=== PATIENT | female | born 1970 | race Caucasian/White ===

== ENCOUNTER 2016-11-15 15:02 | Observation (INO) ==
[2016-11-15] MEDS ORDERED: WATER IV ONE (15:36)
[2016-11-15] MEDS ORDERED: FOMEPIZOLE IV ONE (15:36)
[2016-11-15] MEDS ORDERED: D5 IV ONE (15:36)
--- NOTE | 2016-11-15 15:36 | Emergency Department Note ---
Disposition Clinical Impression: Anti-freeze poisoning, Accidental ingestion of toxic substance Disposition: Admitted As Inpatient Condition: Fair General Adult HPI - General Chief complaint: ED General Medical Stated complaint: Accidental ingestion of antifreeze last night Time Seen by Provider: 11/15/16 15:25 Source: patient Limitations: no limitations - History of Present Illness Pain Scale: 9 - Related Data Home Medications Medication Instructions Recorded Confirmed Gabapentin [Neurontin] 600 mg PO TID 01/04/15 11/15/16 Insulin Glargine,Hum.rec.anlog 50 units SQ QPM #0 04/29/15 11/15/16 [Toujeo Solostar] Omeprazole [PriLOSEC] 40 mg PO DAILY 11/03/15 11/15/16 Cholecalciferol (D-3) [Vitamin D] 1,000 unit PO DAILY 04/19/16 11/15/16 Pnv95/Ferrous Fumarate/FA 1 each PO DAILY 11/15/16 11/15/16 [ Vitamin Tablet] Previous Rx's Medication Instructions Recorded Dicyclomine [Bentyl] 10 mg PO QID PRN #20 capsule 10/23/16 Allergies Allergy/AdvReac Type Severity Reaction Status Date / Time ibuprofen [From Motrin] AdvReac Gastrointestinal Verified 11/15/16 15:17 Upset NSAIDS (Non-Steroidal AdvReac Gastrointestinal Verified 11/15/16 15:17 Anti-Inflamma Upset Past Medical History - Past Medical History Medical history: Reports: arthritis, cancer, diabetes, pulmonary embolus, other Surgical history: Reports: cholecystectomy, herniorrhaphy, hysterectomy, other Psychiatric history: Reports: no psych history 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, 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 - Social History Smoking Status: Never smoker Smokeless Tobacco Status: No Alcohol use: Reports: none Drug use: Reports: none Physical Exam - General Limitations: no limitations General appearance: alert, in no apparent distress Course Vital Signs Temperature 98.5 F 11/15/16 15:13 Pulse Rate 97 11/15/16 15:13 Respiratory Rate 20 11/15/16 15:13 Blood Pressure 136/100 11/15/16 15:13 O2 Sat by Pulse Oximetry 99 11/15/16 15:13 Temperature 97.7 F 11/16/16 11:06 Pulse Rate 88 11/16/16 11:06 Respiratory Rate 17 11/16/16 11:06 Blood Pressure 109/71 11/16/16 11:06 O2 Sat by Pulse Oximetry 95 11/16/16 11:06 Oxygen Delivery Oxygen Delivery Room Air Medical Decision Making - Lab Data Result diagrams: 11/16/16 03:15 11/16/16 03:15 Lab Results 11/15/16 11/15/16 11/15/16 Range/Units 15:41 15:52 16:08 WBC 7.7 (4.3-11.1) K/mcL RBC 4.79 (3.82-4.97) M/mcL Hgb 13.3 (11.5-15.4) g/dL Hct 41.2 (35.3-44.9) % MCV 86.0 (83.0-100.0) fL MCH 27.8 L (28.0-33.3) pg MCHC 32.3 (31.6-35.5) g/dL RDW 14.5 (11.5-14.5) % Plt Count 417 H (140-400) K/mcL MPV 9.0 L (9.4-12.4) fL Immature Gran % 0.4 (0-4) % Seg Neutrophils % 70.5 % Lymphocytes % 17.7 % Monocytes % 8.9 % Eosinophils % 2.0 % Basophils % 0.5 % Neutrophils # 5.4 (1.6-8.9) K/mcL Lymphocytes # 1.4 (0.6-4.6) K/mcL Monocytes # 0.7 (0.0-1.3) K/mcL Eosinophils # 0.2 (0.0-0.6) K/mcL Basophils # 0.0 (0.0-0.2) K/mcL VBG pH (7.32-7.42) pH Units VBG pCO2 (41-51) mmHg VBG pO2 (25-50) mmHg VBG HCO3 (21-27) mEq/L Sodium (136-145) mEq/L Potassium (3.5-4.5) mEq/L Chloride (98-109) mEq/L Carbon Dioxide (19-29) mEq/L BUN (7-20) mg/dL Creatinine (0.57-1.11) mg/dL Est GFR ( Amer) (> 60) Est GFR (Non-Af Amer) (> 60) BUN/Creatinine Ratio (6-26) Glucose (70-99) mg/dL POC Glucose 179 H (58-89) Est Mean Plasma Glucose mg/dl Hemoglobin A1c ( - 5.6) % Calculated Osmolality (280-300) Calcium (8.6-10.8) mg/dL Total Bilirubin (0.2-1.2) mg/dL AST (5-34) Units/L ALT (0-55) Units/L Alkaline Phosphatase (38-126) Units/L Serum Total Protein (6.0-8.3) g/dL Albumin (3.5-5.0) g/dL Globulin (2.4-3.5) g/dL Albumin/Globulin Ratio (1.1-2.2) Urine Color Dark Yellow (Yellow) Urine Clarity Clear (Clear) Urine pH 6.5 (5.0-8.0) pH Units Ur Specific [place] 1.027 H (1.010-1.025) Urine Protein 100 H (Neg-Trace) mg/dL Urine Glucose (UA) Normal (Normal) mg/dL Urine Ketones Negative (Negative) mg/dL Urine Blood Negative (Negative) Urine Nitrite Negative (Negative) Urine Bilirubin Negative (Negative) Urine Urobilinogen Normal (Normal) mg/dL Ur Leukocyte Esterase Small H (Negative) Urine Microscopic RBC 0-3 (0-3) per hpf Urine Microscopic WBC 5-15 H (0-3) per hpf Ur Squamous Epith Cells Many H (None-Few) per lpf Ur Renal Epithelial Cell Few (None-Few) per hpf Urine Bacteria None Seen (None-Few) per hpf Hyaline Casts Moderate H (None-Few) per lpf Salicylates (15-30) mg/dL Acetaminophen (10-30) mcg/mL Ethyl Alcohol (0-10) mg/dL 11/15/16 11/15/16 11/15/16 Range/Units 16:08 16:08 16:19 WBC (4.3-11.1) K/mcL RBC (3.82-4.97) M/mcL Hgb (11.5-15.4) g/dL Hct (35.3-44.9) % MCV (83.0-100.0) fL MCH (28.0-33.3) pg MCHC (31.6-35.5) g/dL RDW (11.5-14.5) % Plt Count (140-400) K/mcL MPV (9.4-12.4) fL Immature Gran % (0-4) % Seg Neutrophils % % Lymphocytes % % Monocytes % % Eosinophils % % Basophils % % Neutrophils # (1.6-8.9) K/mcL Lymphocytes # (0.6-4.6) K/mcL Monocytes # (0.0-1.3) K/mcL Eosinophils # (0.0-0.6) K/mcL Basophils # (0.0-0.2) K/mcL VBG pH 7.34 (7.32-7.42) pH Units VBG pCO2 58 H (41-51) mmHg VBG pO2 36 (25-50) mmHg VBG HCO3 31 H (21-27) mEq/L Sodium 142 (136-145) mEq/L Potassium 4.2 (3.5-4.5) mEq/L Chloride 103 (98-109) mEq/L Carbon Dioxide 30 H (19-29) mEq/L BUN 9 (7-20) mg/dL Creatinine 0.76 (0.57-1.11) mg/dL Est GFR ( Amer) > 60 (> 60) Est GFR (Non-Af Amer) > 60 (> 60) BUN/Creatinine Ratio 12 (6-26) Glucose 198 H (70-99) mg/dL POC Glucose (58-89) Est Mean Plasma Glucose 166 mg/dl Hemoglobin A1c 7.4 H ( - 5.6) % Calculated Osmolality 298 (280-300) Calcium 9.7 (8.6-10.8) mg/dL Total Bilirubin 0.4 (0.2-1.2) mg/dL AST 14 (5-34) Units/L ALT 26 (0-55) Units/L Alkaline Phosphatase 132 H (38-126) Units/L Serum Total Protein 7.7 (6.0-8.3) g/dL Albumin 3.7 (3.5-5.0) g/dL Globulin 4.0 H (2.4-3.5) g/dL Albumin/Globulin Ratio 0.9 L (1.1-2.2) Urine Color (Yellow) Urine Clarity (Clear) Urine pH (5.0-8.0) pH Units Ur Specific [place] (1.010-1.025) Urine Protein (Neg-Trace) mg/dL Urine Glucose (UA) (Normal) mg/dL Urine Ketones (Negative) mg/dL Urine Blood (Negative) Urine Nitrite (Negative) Urine Bilirubin (Negative) Urine Urobilinogen (Normal) mg/dL Ur Leukocyte Esterase (Negative) Urine Microscopic RBC (0-3) per hpf Urine Microscopic WBC (0-3) per hpf Ur Squamous Epith Cells (None-Few) per lpf Ur Renal Epithelial Cell (None-Few) per hpf Urine Bacteria (None-Few) per hpf Hyaline Casts (None-Few) per lpf Salicylates < 5.0 L (15-30) mg/dL Acetaminophen < 1.0 L (10-30) mcg/mL Ethyl Alcohol < 10 (0-10) mg/dL Critical Care Time Critical Care Time: Yes Total Critical Care Time: 30 Attestation: Toxic alcohol ingestion requiring IV fomepizole and poison control consult Attestation Statement - Attestation Attestation: I examined this patient and my medical decision-making was reviewed with the Resident Physician. I agree with the documented findings, disposition and treatment plan as described except to the extent set forth below. Face to face time provided in conjunction with the resident physician Dr. Hoffman Patient ambulatory to treatment room. Seen upon arrival to room. Possible accidental antifreeze ingestion. Appears in NAD. Case d/w PCC by me at 15:35. They rec IV fomepizole
--- NOTE | 2016-11-15 15:58 | Emergency Department Note ---
Disposition Clinical Impression: Anti-freeze poisoning Qualifiers: Encounter type: initial encounter Injury intent: accidental or unintentional Qualified Code(s): T65.91XA - Toxic effect of unspecified substance, accidental (unintentional), initial encounter Accidental ingestion of toxic substance Qualifiers: Encounter type: initial encounter Qualified Code(s): T65.91XA - Toxic effect of unspecified substance, accidental (unintentional), initial encounter Disposition: Admitted As Inpatient Condition: Fair Time of Disposition: 19:00 General Adult HPI - General Chief complaint: ED General Medical Stated complaint: Accidental ingestion of antifreeze last night Time Seen by Provider: 11/15/16 15:25 Source: patient Limitations: no limitations Nursing Notes Reviewed: Yes Vital Signs Reviewed: Yes - History of Present Illness HPI Narrative: Patient 46-year-old female who complains of back pain and dysuria and throat pain secondary to accidental ingestion of antifreeze 8 hours ago. Patient states they were hanging outside in the dark and her son put antifreeze in a Coke bottle. Patient states she mistook it for her bottle and took a mouthful. Patient swallowed. Patient states she threw up almost immediately and states it burned her throat on the way up. Patient states that 8 hours later she started having back pain around her kidneys and burning with urination. Patient has a history of diabetes as well. Pain Scale: 9 - Related Data Home Medications Medication Instructions Recorded Confirmed Gabapentin [Neurontin] 600 mg PO TID 01/04/15 11/15/16 Insulin Glargine,Hum.rec.anlog 50 units SQ QPM #0 04/29/15 11/15/16 [Hugh Carrillo] Omeprazole [PriLOSEC] 40 mg PO DAILY 11/03/15 11/15/16 Cholecalciferol (D-3) [Vitamin D] 1,000 unit PO DAILY 04/19/16 11/15/16 Pnv95/Ferrous Fumarate/FA 1 each PO DAILY 11/15/16 11/15/16 [ Vitamin Tablet] Previous Rx's Medication Instructions Recorded Dicyclomine [Bentyl] 10 mg PO QID PRN #20 capsule 10/23/16 Allergies Allergy/AdvReac Type Severity Reaction Status Date / Time ibuprofen [From Motrin] AdvReac Gastrointestinal Verified 11/15/16 15:17 Upset NSAIDS (Non-Steroidal AdvReac Gastrointestinal Verified 11/15/16 15:17 Anti-Inflamma Upset All systems ED: reviewed and negative except as stated. Review of Systems: As Per HPI Constitutional: Denies: fever, chills, weakness Eyes: Denies: vision change Cardiovascular: Denies: chest pain, palpitations, dyspnea on exertion Respiratory: Denies: cough Gastrointestinal: Reports: abdominal pain. Denies: nausea, vomiting, diarrhea Genitourinary: Reports: urgency, dysuria, frequency Musculoskeletal: Reports: back pain Integumentary: Denies: rash Neurological: Denies: headache Endocrine: Denies: fatigue Past Medical History - Past Medical History Attestation: Yes The following information was validated with the patient. 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 It patient is comfortable and non-diaphoretic and nontoxic appearing - General Limitations: no limitations General appearance: alert, in no apparent distress - Head Head exam: atraumatic, normocephalic, normal inspection - Eye Eye exam: Present: normal appearance, PERRL, EOMI - ENT ENT exam: normal exam, normal oropharynx, mucous membranes moist - Neck Neck exam: Present: normal inspection, full ROM, trachea midline - Chest Chest inspection: Present: normal inspection, symmetric chest wall rise - Respiratory Respiratory exam: Present: normal lung sounds bilaterally - Abdominal Exam Abdominal exam: Present: soft, tenderness, other (Left flank tenderness to palpation). Absent: distention, guarding, rebound, rigidity Abdominal tenderness: Present: suprapubic, moderate - Back Exam Back exam: Present: CVA tenderness (R), CVA tenderness (L) - Neurological Exam Neurological exam: Present: alert, oriented X3 - Psychiatric Psychiatric exam: Present: normal affect, normal mood - Skin Skin exam: Present: warm, dry, intact, normal color Course - Consultations Consultation #1: Dr. Mayfield hospitalist has accepted patient for admission Time: 16:50 Consultation #2: poison control returned call. took lab values. Dr. Canales is operations representative. Time: 17:52 Vital Signs Temperature 98.5 F 11/15/16 15:13 Pulse Rate 97 11/15/16 15:13 Respiratory Rate 20 11/15/16 15:13 Blood Pressure 136/100 11/15/16 15:13 O2 Sat by Pulse Oximetry 99 11/15/16 15:13 Temperature 98.1 F 11/15/16 18:35 Pulse Rate 80 11/15/16 18:35 Respiratory Rate 15 11/15/16 18:35 Blood Pressure 115/83 11/15/16 18:35 O2 Sat by Pulse Oximetry 99 11/15/16 18:35 Oxygen Delivery Oxygen Delivery Room Air Medical Decision Making - MDM Narrative Medical decision making narrative: Accidental toxic ingestion of antifreeze. Labs ordered after discussion with poison control to suspect for toxic operations representative ingestion. Other labs of CBC and BMP ordered as well. Patient's lab values showed no elevations outside of her normal baselines. Patient's pain was treated with fentanyl. Patient doing better. Patient is admitted for treatment with Fomepizole as advised by poison control. Patient received her first dose here of 800 mg. Patient accepts this decision for admission. Patient is accepted for admission by Dr. Mayfield the hospitalist. - Lab Data Lab results narrative: Short CBC 11/15/16 Range/Units 16:08 WBC 7.7 (4.3-11.1) K/mcL Hgb 13.3 (11.5-15.4) g/dL Hct 41.2 (35.3-44.9) % Plt Count 417 H (140-400) K/mcL Neutrophils # 5.4 (1.6-8.9) K/mcL BMP 11/15/16 Range/Units 16:08 Sodium 142 (136-145) mEq/L Potassium 4.2 (3.5-4.5) mEq/L Chloride 103 (98-109) mEq/L Carbon Dioxide 30 H (19-29) mEq/L BUN 9 (7-20) mg/dL Creatinine 0.76 (0.57-1.11) mg/dL Glucose 198 H (70-99) mg/dL Calcium 9.7 (8.6-10.8) mg/dL Liver Function 11/15/16 Range/Units 16:08 Total Bilirubin 0.4 (0.2-1.2) mg/dL AST 14 (5-34) Units/L ALT 26 (0-55) Units/L Alkaline Phosphatase 132 H (38-126) Units/L Albumin 3.7 (3.5-5.0) g/dL Urine 11/15/16 Range/Units 15:41 Urine Color Dark Yellow (Yellow) Urine Clarity Clear (Clear) Urine pH 6.5 (5.0-8.0) pH Units Ur Specific [place] 1.027 H (1.010-1.025) Urine Protein 100 H (Neg-Trace) mg/dL Urine Glucose (UA) Normal (Normal) mg/dL Result diagrams: 11/15/16 16:08 11/15/16 16:08 Lab Results 11/15/16 11/15/16 11/15/16 Range/Units 15:41 16:08 16:08 WBC 7.7 (4.3-11.1) K/mcL RBC 4.79 (3.82-4.97) M/mcL Hgb 13.3 (11.5-15.4) g/dL Hct 41.2 (35.3-44.9) % MCV 86.0 (83.0-100.0) fL MCH 27.8 L (28.0-33.3) pg MCHC 32.3 (31.6-35.5) g/dL RDW 14.5 (11.5-14.5) % Plt Count 417 H (140-400) K/mcL MPV 9.0 L (9.4-12.4) fL Immature Gran % 0.4 (0-4) % Seg Neutrophils % 70.5 % Lymphocytes % 17.7 % Monocytes % 8.9 % Eosinophils % 2.0 % Basophils % 0.5 % Neutrophils # 5.4 (1.6-8.9) K/mcL Lymphocytes # 1.4 (0.6-4.6) K/mcL Monocytes # 0.7 (0.0-1.3) K/mcL Eosinophils # 0.2 (0.0-0.6) K/mcL Basophils # 0.0 (0.0-0.2) K/mcL VBG pH (7.32-7.42) pH Units VBG pCO2 (41-51) mmHg VBG pO2 (25-50) mmHg VBG HCO3 (21-27) mEq/L Sodium 142 (136-145) mEq/L Potassium 4.2 (3.5-4.5) mEq/L Chloride 103 (98-109) mEq/L Carbon Dioxide 30 H (19-29) mEq/L BUN 9 (7-20) mg/dL Creatinine 0.76 (0.57-1.11) mg/dL Est GFR ( Amer) > 60 (> 60) Est GFR (Non-Af Amer) > 60 (> 60) BUN/Creatinine Ratio 12 (6-26) Glucose 198 H (70-99) mg/dL Est Mean Plasma Glucose mg/dl Hemoglobin A1c ( - 5.6) % Calculated Osmolality 298 (280-300) Calcium 9.7 (8.6-10.8) mg/dL Total Bilirubin 0.4 (0.2-1.2) mg/dL AST 14 (5-34) Units/L ALT 26 (0-55) Units/L Alkaline Phosphatase 132 H (38-126) Units/L Serum Total Protein 7.7 (6.0-8.3) g/dL Albumin 3.7 (3.5-5.0) g/dL Globulin 4.0 H (2.4-3.5) g/dL Albumin/Globulin Ratio 0.9 L (1.1-2.2) Urine Color Dark Yellow (Yellow) Urine Clarity Clear (Clear) Urine pH 6.5 (5.0-8.0) pH Units Ur Specific [place] 1.027 H (1.010-1.025) Urine Protein 100 H (Neg-Trace) mg/dL Urine Glucose (UA) Normal (Normal) mg/dL Urine Ketones Negative (Negative) mg/dL Urine Blood Negative (Negative) Urine Nitrite Negative (Negative) Urine Bilirubin Negative (Negative) Urine Urobilinogen Normal (Normal) mg/dL Ur Leukocyte Esterase Small H (Negative) Urine Microscopic RBC 0-3 (0-3) per hpf Urine Microscopic WBC 5-15 H (0-3) per hpf Ur Squamous Epith Cells Many H (None-Few) per lpf Ur Renal Epithelial Cell Few (None-Few) per hpf Urine Bacteria None Seen (None-Few) per hpf Hyaline Casts Moderate H (None-Few) per lpf Salicylates < 5.0 L (15-30) mg/dL Acetaminophen < 1.0 L (10-30) mcg/mL Ethyl Alcohol < 10 (0-10) mg/dL 11/15/16 11/15/16 Range/Units 16:08 16:19 WBC (4.3-11.1) K/mcL RBC (3.82-4.97) M/mcL Hgb (11.5-15.4) g/dL Hct (35.3-44.9) % MCV (83.0-100.0) fL MCH (28.0-33.3) pg MCHC (31.6-35.5) g/dL RDW (11.5-14.5) % Plt Count (140-400) K/mcL MPV (9.4-12.4) fL Immature Gran % (0-4) % Seg Neutrophils % % Lymphocytes % % Monocytes % % Eosinophils % % Basophils % % Neutrophils # (1.6-8.9) K/mcL Lymphocytes # (0.6-4.6) K/mcL Monocytes # (0.0-1.3) K/mcL Eosinophils # (0.0-0.6) K/mcL Basophils # (0.0-0.2) K/mcL VBG pH 7.34 (7.32-7.42) pH Units VBG pCO2 58 H (41-51) mmHg VBG pO2 36 (25-50) mmHg VBG HCO3 31 H (21-27) mEq/L Sodium (136-145) mEq/L Potassium (3.5-4.5) mEq/L Chloride (98-109) mEq/L Carbon Dioxide (19-29) mEq/L BUN (7-20) mg/dL Creatinine (0.57-1.11) mg/dL Est GFR ( Amer) (> 60) Est GFR (Non-Af Amer) (> 60) BUN/Creatinine Ratio (6-26) Glucose (70-99) mg/dL Est Mean Plasma Glucose 166 mg/dl Hemoglobin A1c 7.4 H ( - 5.6) % Calculated Osmolality (280-300) Calcium (8.6-10.8) mg/dL Total Bilirubin (0.2-1.2) mg/dL AST (5-34) Units/L ALT (0-55) Units/L Alkaline Phosphatase (38-126) Units/L Serum Total Protein (6.0-8.3) g/dL Albumin (3.5-5.0) g/dL Globulin (2.4-3.5) g/dL Albumin/Globulin Ratio (1.1-2.2) Urine Color (Yellow) Urine Clarity (Clear) Urine pH (5.0-8.0) pH Units Ur Specific [place] (1.010-1.025) Urine Protein (Neg-Trace) mg/dL Urine Glucose (UA) (Normal) mg/dL Urine Ketones (Negative) mg/dL Urine Blood (Negative) Urine Nitrite (Negative) Urine Bilirubin (Negative) Urine Urobilinogen (Normal) mg/dL Ur Leukocyte Esterase (Negative) Urine Microscopic RBC (0-3) per hpf Urine Microscopic WBC (0-3) per hpf Ur Squamous Epith Cells (None-Few) per lpf Ur Renal Epithelial Cell (None-Few) per hpf Urine Bacteria (None-Few) per hpf Hyaline Casts (None-Few) per lpf Salicylates (15-30) mg/dL Acetaminophen (10-30) mcg/mL Ethyl Alcohol (0-10) mg/dL
[2016-11-15 16:01] LABS: Bilirubin,Urine Negative (Negative); Blood,Urine Negative (Negative); Clarity,Urine Clear (Clear); Color,Urine Dark Yellow (Yellow); Glucose,Urine (UA) Normal (Normal); Ketones,Urine Negative (Negative); Leukocyte Esterase,Urine Small (Negative); Nitrite,Urine Negative (Negative); PH,Urine 6.5 pH Units (5.0-8.0); Protein,Urine 100 mg/dL (Neg-Trace); Specific Gravity,Urine 1.027 (1.010-1.025); Urobilinogen,Urine Normal (Normal)
[2016-11-15 16:03] LABS: Bacteria,Urine None Seen per hpf (None-Few); Hyaline Casts,Urine Moderate per lpf (None-Few); Squamous Epithelial Cell,Urine Many per lpf (None-Few)
[2016-11-15 16:15] LABS: Renal Epithelial Cells,Urine Few per hpf (None-Few)
[2016-11-15 16:16] LABS: Basophils % 0.5 %; Eosinophils # 0.2 K/mcL (0.0-0.6); Hematocrit 41.2 % (35.3-44.9); Hemoglobin 13.3 g/dL (11.5-15.4); Immature Granulocytes % 0.4 % (0-4); Lymphocytes # 1.4 K/mcL (0.6-4.6); Lymphocytes % 17.7 %; Mean Corpuscular HGB Conc 32.3 g/dL (31.6-35.5); Mean Corpuscular Hemoglobin 27.8 pg (28.0-33.3); Monocytes # 0.7 K/mcL (0.0-1.3); Monocytes % 8.9 %; Neutrophils # 5.4 K/mcL (1.6-8.9); Platelet Count 417 K/mcL (140-400); Red Blood Count 4.79 M/mcL (3.82-4.97); Red Cell Distribution Width 14.5 % (11.5-14.5); Segmented Neutrophils % 70.5 %
[2016-11-15 16:16] LABS: RBC,Urine 0-3 per hpf (0-3)
[2016-11-15 16:22] LABS: VBG HCO3 31 mEq/L (21-27); VBG PCO2 58 mmHg (41-51); VBG PH 7.34 pH Units (7.32-7.42); VBG PO2 36 mmHg (25-50)
[2016-11-15 16:29] LABS: Alanine Aminotransferase 26 Units/L (0-55); Albumin 3.7 g/dL (3.5-5.0); Albumin/Globulin Ratio 0.9 (1.1-2.2); Alkaline Phosphatase 132 Units/L (38-126); Aspartate Amino Transferase 14 Units/L (5-34); BUN/Creatinine Ratio 12 (6-26); Bilirubin,Total 0.4 mg/dL (0.2-1.2); Blood Urea Nitrogen 9 mg/dL (7-20); Calcium 9.7 mg/dL (8.6-10.8); Carbon Dioxide 30 mEq/L (19-29); Chloride 103 mEq/L (98-109); Glucose 198 mg/dL (70-99); Osmolality,Calculated 298 (280-300); Potassium 4.2 mEq/L (3.5-4.5); Sodium 142 mEq/L (136-145); Total Protein 7.7 g/dL (6.0-8.3); eGFR For African Americans > 60 (> 60); eGFR For Non-African Americans > 60 (> 60)
[2016-11-15 16:30] LABS: Acetaminophen < 1.0 mcg/mL (10-30); Ethanol < 10 mg/dL (0-10); Salicylate < 5.0 mg/dL (15-30)
[2016-11-15] MEDS ORDERED: *HR* FentaNYL (PF) 100 MCG/2 ML VIAL IVP ONE (17:26)
[2016-11-15] MEDS ORDERED: Dextrose Gel 15 GM PO PRN ×2 (17:33)
[2016-11-15] MEDS ORDERED: *HR* Dextrose 50 % in Water (Syg) 50 ML SYRINGE IVP PRN (17:33)
[2016-11-15] MEDS ORDERED: D5% in Water 1,000 ML IVC PRN (17:33)
[2016-11-15] MEDS ORDERED: Ondansetron 4 MG/2 ML VIAL IVP PRN (17:36)
[2016-11-15] MEDS ORDERED: Naloxone 0.4 MG/ML INJ IVP PRN (17:36)
--- NOTE | 2016-11-15 17:36 | Event Note ---
Date of Encounter: 11/15/16 Time of Encounter: 17:33 Patient seen and examined with nurse practitioner. Antifreeze overdose. History is suspicious of intentional overdose. Get sitter at bedside and psychiatry evaluation. Poison control has been contacted recommended fomepizole. Follow kidney functions and urine output
--- NOTE | 2016-11-15 17:51 | Internal Med History&Physical ---
Date of Encounter: 11/15/16 Time of Encounter: 17:45 Assessment and Plan (1) Antifreeze poisoning Current visit: Yes Status: Acute Patient reports drinking out of the wrong can of coke and accidentally swallowing antifreeze at 1am this morning. She reports vomiting started 1 hour later. She denies intentional self harm, but her story is suspicious. Poison control was called and recommended following kidney function and Fomepizole antidote. loading dose of Fomepizole given in ED, continue with 10mg/kg IVPB q12 hours. Ethelene glycol level pending. IV fluids 0.9NS at 125mL/hr I/Os Check chemistry q6hr Consider consult to nephrology if kidney function deteriorates or she develops anion gap acidosis clear liquid diet zofran for nausea Sitter at bedside consult to psych Qualifiers: Encounter type: initial encounter Injury intent: accidental or unintentional Qualified Code(s): T65.91XA - Toxic effect of unspecified substance, accidental (unintentional), initial encounter (2) Type 2 diabetes mellitus Current visit: Yes Status: Acute Check Hgb A1c Patient on clear liquid diet check blood sugars ACHS Hold long acting insulin sliding scale correction dose ACHS hypoglycemic protocol. Qualifiers: Diabetes mellitus complication status: without complication Diabetes mellitus long term acute care registered nurse insulin use: with halfway use Qualified Code(s): E11.9 - Type 2 diabetes mellitus without complications; Z79.4 - correction (current) use of insulin; Z79.4 - correction (current) use of insulin; Z79.4 - long term acute care registered nurse ( current) use of insulin; Z79.4 - long term acute care registered nurse (current) use of insulin (3) DVT prophylaxis Current visit: Yes Status: Acute anti-embolic stockings heparin SQ TID Internal Medicine - H&P: HPI Chief complaint: antifreeze overdose Admitted From: Emergency Dept Plans for Post Hospital Care: Home History of present illness: Ms. Lawson is a 46 year old female with type 2 diabetes, hyperlipidemia, arthritis who presented to the ED today complaining of dysuria, abdominal pain and low back pain after accidentally ingesting antifreeze at approximately 1am this morning. Patient reports she was hanging out in the driveway and took a drink of what she thought was her coke, but it actually contained antifreeze. She reports she vomiting approximately 1 hour later and had vomiting all night. Today she developed dysuria and bilateral flank pain. Patient denies any intent to self-harm but story is suspicious. Labs drawn in ED were normal. UA shows hyaline casts in urine. Poison control was called and recommended watching kidney function closely and administering Fomepizole. She received loading dose of Fomepizole in ED. On exam, patient alert and oriented, in no distress. Lungs clear bilaterally, heart has regular rate and rhythm. Abdomen soft, diffusely mildly tender, with positive bowel sounds. Bilateral CVA tenderness. Past Med Surg Social Fam HX - Past Medical History Medical history: arthritis, cancer, diabetes, pulmonary embolus, other Psychiatric history: no psych history - Past Surgical History Surgical History: cholecystectomy, herniorrhaphy, hysterectomy, other - Social History Smoking Status: Never smoker Smokeless Tobacco Status: No Alcohol use: none Drug use: none - Family History Mother Living Status: Still Living Hx Family Cardiac Disorders: Yes (CHF) Hx Family Respiratory Disorders: No Hx Family Cancer: No Hx Family GI Disorders: No Hx Family Endocrine Disorder: Yes (THYROID DX) Hx Family Neuromuscular Disorders: No Hx Family Neurologic Disorders: No Hx Family HEENT Disorders: No Hx Family Autoimmune Disorders: No Internal Medicine - H&P: Meds Gabapentin [Neurontin] 600 mg PO TID 01/04/15 [History] Insulin Glargine,Hum.rec.anlog [Toujeo Solostar] 50 units SQ QPM #0 04/29/15 [ History] Omeprazole [PriLOSEC] 40 mg PO DAILY 11/03/15 [History] Cholecalciferol (D-3) [Vitamin D] 1,000 unit PO DAILY 04/19/16 [History] Dicyclomine [Bentyl] 10 mg PO QID PRN #20 capsule 10/23/16 [Rx] Pnv95/Ferrous Fumarate/FA [ Vitamin Tablet] 1 each PO DAILY 11/15/16 [ History] 3 Allergy/AdvReac Type Severity Reaction Status Date / Time ibuprofen [From Motrin] AdvReac Gastrointestinal Verified 11/15/16 15:17 Upset NSAIDS (Non-Steroidal AdvReac Gastrointestinal Verified 11/15/16 15:17 Anti-Inflamma Upset All Systems PM: A 10-system review of systems was performed and is negative for pertinent findings except as documented above in the HPI. - Constitutional Constitutional: no chills, no fever(s), no night sweats - EENT Eyes: no change in vision, no discharge, no pain, no photophobia Ears: no ear discharge, no ear pain, no tinnitus Nose, mouth and throat: no dysphagia, no nasal discharge, no neck pain, no sore throat - Cardiovascular Cardiovascular ROS IM: no chest pain, no diaphoresis, no dyspnea, no lightheadedness, no palpitations, no syncope - Respiratory Respiratory: no cough, no dyspnea, no wheezing, no excessive phlegm production - Gastrointestinal Gastrointestinal: abdominal pain, nausea, vomiting, no diarrhea, no hematemesis , no hematochezia, no melena - Genitourinary Genitourinary: dysuria, flank pain, no change in urinary stream, no hematuria - Musculoskeletal Musculoskeletal ROS IM: no numbness, no tingling - Integumentary Integumentary IM: no rash, no unusual bruising - Neurological Neurological ROS: no confusion, no convulsions, no focal weakness, no numbness, no tingling, no tremor(s) - Hematologic/Lymphatic Hematologic/Lymphatic: no easy bruising - Constitutional Vitals: Temp Pulse Resp BP Pulse Ox 98.5 F 86 20 101/75 98 11/15/16 15:13 11/15/16 17:23 11/15/16 17:23 11/15/16 17:23 11/15/16 17:23 General appearance: Present: A&O X 3, morbidly obese, pleasant, no acute distress - Head Head exam: Present: atraumatic, normocephalic - Eye Eye exam: Present: PERRL, conjuntiva pink, sclera anicteric Pupils: Present: PERRL - Neck Neck exam general surgery: Present: supple, trachea midline. Absent: lymphadenopathy - Respiratory Respiratory exam: Present: CTAB. Absent: accessory muscle use, rales, rhonchi, wheezes - Cardiovascular Cardiovascular exam: Present: RRR, +S1, +S2. Absent: diastolic murmur, gallop, rubs, systolic murmur - GI/Abdominal GI/Abdominal exam: Present: normal bowel sounds, soft, tenderness (diffusely mildly), no peritoneal signs. Absent: distended - Extremities Exam Extremities exam: Present: warm, radial pulses palpable and symmetrical. Absent : calf tenderness, cyanotic, pedal edema - Back Exam Back exam: Present: CVA tenderness (L), CVA tenderness (R) - Neurological Exam Neurological exam: Present: CN II-XII intact, oriented X3, no focal deficits. Absent: pronater drift, facial droop, speech deficit - Skin Skin exam: Present: dry, intact Internal Med - H&P Results - Labs CBC & Chem 7: 11/15/16 16:08 11/15/16 16:08 Labs: All Lab Results (24 Hours) 11/15/16 11/15/16 11/15/16 Range/Units 15:41 16:08 16:08 WBC 7.7 (4.3-11.1) K/mcL RBC 4.79 (3.82-4.97) M/mcL Hgb 13.3 (11.5-15.4) g/dL Hct 41.2 (35.3-44.9) % MCV 86.0 (83.0-100.0) fL MCH 27.8 L (28.0-33.3) pg MCHC 32.3 (31.6-35.5) g/dL RDW 14.5 (11.5-14.5) % Plt Count 417 H (140-400) K/mcL MPV 9.0 L (9.4-12.4) fL Immature Gran % 0.4 (0-4) % Seg Neutrophils % 70.5 % Lymphocytes % 17.7 % Monocytes % 8.9 % Eosinophils % 2.0 % Basophils % 0.5 % Neutrophils # 5.4 (1.6-8.9) K/mcL Lymphocytes # 1.4 (0.6-4.6) K/mcL Monocytes # 0.7 (0.0-1.3) K/mcL Eosinophils # 0.2 (0.0-0.6) K/mcL Basophils # 0.0 (0.0-0.2) K/mcL VBG pH (7.32-7.42) pH Units VBG pCO2 (41-51) mmHg VBG pO2 (25-50) mmHg VBG HCO3 (21-27) mEq/L Sodium 142 (136-145) mEq/L Potassium 4.2 (3.5-4.5) mEq/L Chloride 103 (98-109) mEq/L Carbon Dioxide 30 H (19-29) mEq/L BUN 9 (7-20) mg/dL Creatinine 0.76 (0.57-1.11) mg/dL Est GFR ( Amer) > 60 (> 60) Est GFR (Non-Af Amer) > 60 (> 60) BUN/Creatinine Ratio 12 (6-26) Glucose 198 H (70-99) mg/dL Calculated Osmolality 298 (280-300) Calcium 9.7 (8.6-10.8) mg/dL Total Bilirubin 0.4 (0.2-1.2) mg/dL AST 14 (5-34) Units/L ALT 26 (0-55) Units/L Alkaline Phosphatase 132 H (38-126) Units/L Serum Total Protein 7.7 (6.0-8.3) g/dL Albumin 3.7 (3.5-5.0) g/dL Globulin 4.0 H (2.4-3.5) g/dL Albumin/Globulin Ratio 0.9 L (1.1-2.2) Urine Color Dark Yellow (Yellow) Urine Clarity Clear (Clear) Urine pH 6.5 (5.0-8.0) pH Units Ur Specific [place] 1.027 H (1.010-1.025) Urine Protein 100 H (Neg-Trace) mg/dL Urine Glucose (UA) Normal (Normal) mg/dL Urine Ketones Negative (Negative) mg/dL Urine Blood Negative (Negative) Urine Nitrite Negative (Negative) Urine Bilirubin Negative (Negative) Urine Urobilinogen Normal (Normal) mg/dL Ur Leukocyte Esterase Small H (Negative) Urine Microscopic RBC 0-3 (0-3) per hpf Urine Microscopic WBC 5-15 H (0-3) per hpf Ur Squamous Epith Cells Many H (None-Few) per lpf Ur Renal Epithelial Cell Few (None-Few) per hpf Urine Bacteria None Seen (None-Few) per hpf Hyaline Casts Moderate H (None-Few) per lpf Salicylates < 5.0 L (15-30) mg/dL Acetaminophen < 1.0 L (10-30) mcg/mL Ethyl Alcohol < 10 (0-10) mg/dL 11/15/ Range/Units 16:19 WBC (4.3-11.1) K/mcL RBC (3.82-4.97) M/mcL Hgb (11.5-15.4) g/dL Hct (35.3-44.9) % MCV (83.0-100.0) fL MCH (28.0-33.3) pg MCHC (31.6-35.5) g/dL RDW (11.5-14.5) % Plt Count (140-400) K/mcL MPV (9.4-12.4) fL Immature Gran % (0-4) % Seg Neutrophils % % Lymphocytes % % Monocytes % % Eosinophils % % Basophils % % Neutrophils # (1.6-8.9) K/mcL Lymphocytes # (0.6-4.6) K/mcL Monocytes # (0.0-1.3) K/mcL Eosinophils # (0.0-0.6) K/mcL Basophils # (0.0-0.2) K/mcL VBG pH 7.34 (7.32-7.42) pH Units VBG pCO2 58 H (41-51) mmHg VBG pO2 36 (25-50) mmHg VBG HCO3 31 H (21-27) mEq/L Sodium (136-145) mEq/L Potassium (3.5-4.5) mEq/L Chloride (98-109) mEq/L Carbon Dioxide (19-29) mEq/L BUN (7-20) mg/dL Creatinine (0.57-1.11) mg/dL Est GFR ( Amer) (> 60) Est GFR (Non-Af Amer) (> 60) BUN/Creatinine Ratio (6-26) Glucose (70-99) mg/dL Calculated Osmolality (280-300) Calcium (8.6-10.8) mg/dL Total Bilirubin (0.2-1.2) mg/dL AST (5-34) Units/L ALT (0-55) Units/L Alkaline Phosphatase (38-126) Units/L Serum Total Protein (6.0-8.3) g/dL Albumin (3.5-5.0) g/dL Globulin (2.4-3.5) g/dL Albumin/Globulin Ratio (1.1-2.2) Urine Color (Yellow) Urine Clarity (Clear) Urine pH (5.0-8.0) pH Units Ur Specific [place] (1.010-1.025) Urine Protein (Neg-Trace) mg/dL Urine Glucose (UA) (Normal) mg/dL Urine Ketones (Negative) mg/dL Urine Blood (Negative) Urine Nitrite (Negative) Urine Bilirubin (Negative) Urine Urobilinogen (Normal) mg/dL Ur Leukocyte Esterase (Negative) Urine Microscopic RBC (0-3) per hpf Urine Microscopic WBC (0-3) per hpf Ur Squamous Epith Cells (None-Few) per lpf Ur Renal Epithelial Cell (None-Few) per hpf Urine Bacteria (None-Few) per hpf Hyaline Casts (None-Few) per lpf Salicylates (15-30) mg/dL Acetaminophen (10-30) mcg/mL Ethyl Alcohol (0-10) mg/dL
[2016-11-15 18:29] LABS: Hemoglobin A1C 7.4 %
[2016-11-15] MEDS: Insulin LISPRO 300 UNITS/3 ML VIAL SQ SCH ×2 (18:49→21:00)
[2016-11-15] MEDS: 0.9 % Sodium Chloride 1,000 ML IVC SCH (18:49)
[2016-11-15] MEDS: traMADol 50 MG TABLET PO PRN (19:49)
[2016-11-15] MEDS: Gabapentin 300 MG CAPSULE PO SCH (19:49)
[2016-11-15] MEDS: *HR* Morphine 2 MG/ML SYRINGE IVP PRN (20:50)
[2016-11-15] MEDS: *HR* Heparin 5,000 UNIT/ML VIAL SQ SCH (20:57)
[2016-11-16 00:03] LABS: BUN/Creatinine Ratio 15 (6-26); Blood Urea Nitrogen 10 mg/dL (7-20); Calcium 8.9 mg/dL (8.6-10.8); Carbon Dioxide 23 mEq/L (19-29); Chloride 107 mEq/L (98-109); Glucose 101 mg/dL (70-99); Osmolality,Calculated 293 (280-300); Potassium 4.1 mEq/L (3.5-4.5); Sodium 142 mEq/L (136-145); eGFR For African Americans > 60 (> 60); eGFR For Non-African Americans > 60 (> 60)
[2016-11-16] MEDS: *HR* Morphine 2 MG/ML SYRINGE IVP PRN ×6 (01:10→22:39)
[2016-11-16 03:28] LABS: Basophils % 0.4 %; Eosinophils # 0.2 K/mcL (0.0-0.6); Eosinophils % 2.7 %; Hematocrit 36.3 % (35.3-44.9); Immature Granulocytes % 0.3 % (0-4); Lymphocytes # 1.7 K/mcL (0.6-4.6); Lymphocytes % 23.5 %; Mean Corpuscular Hemoglobin 27.7 pg (28.0-33.3); Mean Corpuscular Volume 86.6 fL (83.0-100.0); Mean Platelet Volume 9.2 fL (9.4-12.4); Monocytes # 0.6 K/mcL (0.0-1.3); Monocytes % 8.6 %; Neutrophils # 4.7 K/mcL (1.6-8.9); Platelet Count 359 K/mcL (140-400); Red Blood Count 4.19 M/mcL (3.82-4.97); Red Cell Distribution Width 14.5 % (11.5-14.5); Segmented Neutrophils % 64.5 %
[2016-11-16 03:30] LABS: Hemoglobin 11.6 g/dL (11.5-15.4)
[2016-11-16 03:40] LABS: BUN/Creatinine Ratio 16 (6-26); Blood Urea Nitrogen 10 mg/dL (7-20); Calcium 8.5 mg/dL (8.6-10.8); Carbon Dioxide 26 mEq/L (19-29); Chloride 108 mEq/L (98-109); Glucose 108 mg/dL (70-99); Osmolality,Calculated 292 (280-300); Sodium 141 mEq/L (136-145); eGFR For African Americans > 60 (> 60); eGFR For Non-African Americans > 60 (> 60)
[2016-11-16] MEDS: FOMEPIZOLE IV SCH ×2 (04:02→14:26)
[2016-11-16] MEDS: WATER IV SCH ×2 (04:02→14:26)
[2016-11-16] MEDS: D5 IV SCH ×2 (04:02→14:26)
[2016-11-16] MEDS: 0.9 % Sodium Chloride 1,000 ML IVC SCH ×3 (04:03→19:53)
[2016-11-16] MEDS: *HR* Heparin 5,000 UNIT/ML VIAL SQ SCH ×3 (05:26→22:35)
[2016-11-16] MEDS: Insulin LISPRO 300 UNITS/3 ML VIAL SQ SCH ×4 (07:55→20:00)
[2016-11-16] MEDS: Gabapentin 300 MG CAPSULE PO SCH ×3 (07:56→20:00)
[2016-11-16] MEDS: traMADol 50 MG TABLET PO PRN ×2 (08:12→19:59)
[2016-11-16 12:05] LABS: BUN/Creatinine Ratio 14 (6-26); Blood Urea Nitrogen 9 mg/dL (7-20); Calcium 8.5 mg/dL (8.6-10.8); Carbon Dioxide 26 mEq/L (19-29); Chloride 109 mEq/L (98-109); Glucose 121 mg/dL (70-99); Osmolality,Calculated 294 (280-300); Potassium 4.1 mEq/L (3.5-4.5); Sodium 142 mEq/L (136-145); eGFR For African Americans > 60 (> 60); eGFR For Non-African Americans > 60 (> 60)
--- NOTE | 2016-11-16 13:18 | Discharge Summary ---
Date of Encounter: 11/16/16 Time of Encounter: 13:15 - Discharge Diagnosis (1) Antifreeze poisoning Priority: Primary Status: Acute Comments: Rosalva Ortiz is a 46-year-old female with past medical history diabetes who presented to [facility] on 11/15/2016 with complaints of dysuria abdominal pain and low back pain after accidentally ingesting antifreeze. She was placed in observation status for continued monitoring. 1. Antifreeze ingestion: on morning of presentation; patient reported accidentally drinking antifreeze that was in a pop can. Denies intentional ingestion, denies thoughts of harming or killing self. Presented control contacted in ED and loading dose of antidote Fomepizole given. Ethylene glycol , methanol levels drawn and pending. Discussed with [facility] and both are send outs with turnaround time of approximately [address] Potter [facility] who advised sending lab to [facility] for quicker turnaround time. Spoke with Brittney at [facility] and she is looking into if [place] [facility] can be sent to [facility]. Patient is asymptomatic, not ill appearing. However will need to continue Fomepizole at 10 MG/KG IV every 12 hours until methanol, ethylene glycol level returned. Continue serial CMP is, monitor renal function. Continue aggressive IV fluids. 2. Diabetes: per hx. Hgb A1c 7.4%. Holding home oral hypoglycemics. SSI. Monitor blood sugar and titrate PRN 3. DVT prophylaxis: Heparin Qualifiers: Encounter type: initial encounter Injury intent: accidental or unintentional Qualified Code(s): T65.91XA - Toxic effect of unspecified substance, accidental (unintentional), initial encounter (2) DVT prophylaxis Priority: Primary Status: Acute (3) Type 2 diabetes mellitus Priority: Primary Status: Acute Qualifiers: Diabetes mellitus complication status: without complication Diabetes mellitus halfway insulin use: with halfway use Qualified Code(s): E11.9 - Type 2 diabetes mellitus without complications; Z79.4 - terminal operator (current) use of insulin; Z79.4 - [facility] (current) use of insulin; Z79.4 - [facility] ( current) use of insulin; Z79.4 - [facility] (current) use of insulin - Discharge Medications Home Medications: Gabapentin [Neurontin] 600 mg PO TID 01/04/15 [History] Insulin Glargine,Hum.rec.anlog [Toubriano Khushiostar] 50 units SQ QPM #0 04/29/15 [ History] Omeprazole [PriLOSEC] 40 mg PO DAILY 11/03/15 [History] Cholecalciferol (D-3) [Vitamin D] 1,000 unit PO DAILY 04/19/16 [History] Dicyclomine [Bentyl] 10 mg PO QID PRN #20 capsule 10/23/16 [Rx] Pnv95/Ferrous Fumarate/FA [ Vitamin Tablet] 1 each PO DAILY 11/15/16 [ History] Allergies/Adverse Reactions: 3 Allergy/AdvReac Type Severity Reaction Status Date / Time ibuprofen [From Motrin] AdvReac Gastrointestinal Verified 11/15/16 15:17 Upset NSAIDS (Non-Steroidal AdvReac Gastrointestinal Verified 11/15/16 15:17 Anti-Inflamma Upset Date of admission: 11/15/16 16:44 Primary care physician: Remedios Marshall CNP Consults: 11/15/16 17:32 Consult to Psychiatry [CONS] Routine Consulting Provider: [facility] Reason for Consult: Patient with accidental ingestion of antifreeze, but story is suspicious Call Completed: No Discharging clinician: Maria Luisa Arteaga Anticipated date of discharge: 11/16/16 - Patient Status Disposition: Home, Self-Care Condition: Good Functional capacity at discharge: independent ambulation Overall status at discharge: patient is back to baseline - Discharge Instructions Follow Up With: Remedios Marshall CNP [Primary Care Provider] - - Diet and Activity Activity: resume usual activities as tolerated Diet: advance to your usual diet Interval History: Seen and examined at bedside. Patient is new to me, information obtained from chart review and patient report. Patient says she feels almost back to baseline. Still with some pain/burning down esophagus to stomach. She thinks this is because of her drinking antifreeze. She denies chest pain, no shortness of breath. No dysuria. Patient is adamant that she drank antifreeze as an accident, denies thoughts of harming her wanting to kill self. Hospital course: Ms. Lawson is a 46 year old female - Time Spent with Patient Total time spent providing and/or coordinating discharge services: - Constitutional Vitals: Temp Pulse Resp BP Pulse Ox 97.7 F 88 17 109/71 95 11/16/16 11:06 11/16/16 11:06 11/16/16 11:06 11/16/16 11:06 11/16/16 11:06 General appearance: Present: A&O X 3, morbidly obese, pleasant, no acute distress - Head Head exam: Present: atraumatic, normocephalic - Eye Eye exam: Present: PERRL, conjuntiva pink, sclera anicteric Pupils: Present: PERRL - Neck Neck exam general surgery: Present: supple, trachea midline. Absent: lymphadenopathy - Respiratory Respiratory exam: Present: CTAB. Absent: accessory muscle use, rales, rhonchi, wheezes - Cardiovascular Cardiovascular exam: Present: RRR, +S1, +S2. Absent: diastolic murmur, gallop, rubs, systolic murmur - GI/Abdominal GI/Abdominal exam: Present: normal bowel sounds, soft, no peritoneal signs. Absent: distended, tenderness - Extremities Exam Extremities exam: Present: warm, radial pulses palpable and symmetrical. Absent : calf tenderness, cyanotic, pedal edema - Neurological Exam Neurological exam: Present: CN II-XII intact, oriented X3, no focal deficits. Absent: pronater drift, facial droop, speech deficit - Skin Skin exam: Present: dry, intact
[2016-11-16 14:24] LABS: Bilirubin,Urine Negative (Negative); Blood,Urine Negative (Negative); Clarity,Urine Clear (Clear); Color,Urine Yellow (Yellow); Glucose,Urine (UA) Normal (Normal); Ketones,Urine Negative (Negative); Leukocyte Esterase,Urine Small (Negative); Nitrite,Urine Negative (Negative); Protein,Urine Negative (Neg-Trace); Specific Gravity,Urine 1.009 (1.010-1.025); Urobilinogen,Urine Normal (Normal)
[2016-11-16 14:26] LABS: Bacteria,Urine None Seen per hpf (None-Few); Hyaline Casts,Urine None Seen per lpf (None-Few); RBC,Urine 0-3 per hpf (0-3); Squamous Epithelial Cell,Urine Many per lpf (None-Few)
--- NOTE | 2016-11-16 15:09 | Consult Note ---
Date of Encounter: 11/16/16 Time of Encounter: 13:30 Assessment & Recommendation (1) Accidental ingestion of toxic substance Current visit: Yes Status: Acute Qualifiers: Encounter type: initial encounter Qualified Code(s): T65.91XA - Toxic effect of unspecified substance, accidental (unintentional), initial encounter History of Present Illness Patient: new to practice Requesting Physician: Maria Luisa Arteaga CNP Reason for consult: accidental ingestion of antifreeze , story is suspicious. History of present illness: Ms. Lawson is a 46 year old female consulted today for accidental ingestion of anti freeze , story is suspicious. Patient seen today , her present in session with her permission. Patient states she has no h/o depression , anxiety or any substance use. she has h/o Diabetes and arthritis. states she was working outside on the car and took the bottle of pepsi and as soon as took it she realized it was not pepsi , her was also working on car but he was underneath the car. she ran to the bathroom and tried to vomit which she did and then went on computer and read about it and came to hospital. she said her son had put antifreeze in pepsi bottle , when she was questioned that the color of pepsi and anti freeze is not same , she smiled and said i was so busy with my work on car i did not realized . she denies any depressive s/s, anxiety, psychosis, romina, denies suicidal ideation and no homicidal ideation. Her stated its all correct. AT present patient not in danger to self/others. A/P aCCIDENTAL INGESTION OF ANTI FREEZE. NO TREATMENT REQUIRED FROM PSYCHIATRIC AT PRESENT. tHANK YOU FOR CONSULT. CC: Maria Luisa Arteaga CNP Past Med Surg Social Fam HX - Past Medical History Medical history: arthritis, cancer, diabetes, pulmonary embolus, other - Past Psychiatric History Psychiatric history: Reports: no psych history Family psychiatric history: No Family History of Suicide: None - Past Surgical History Surgical History: cholecystectomy, herniorrhaphy, hysterectomy, other - Social History Smoking Status: Never smoker Smokeless Tobacco Status: No Alcohol use: none Drug use: none - Family History Mother Living Status: Still Living Hx Family Cardiac Disorders: Yes (CHF) Hx Family Respiratory Disorders: No Hx Family Cancer: No Hx Family GI Disorders: No Hx Family Endocrine Disorder: Yes (THYROID DX) Hx Family Neuromuscular Disorders: No Hx Family Neurologic Disorders: No Hx Family HEENT Disorders: No Hx Family Autoimmune Disorders: No Medications & Allergies Gabapentin [Neurontin] 600 mg PO TID 01/04/15 [History] Insulin Glargine,Hum.rec.anlog [Toujeo Solostar] 50 units SQ QPM #0 04/29/15 [ History] Omeprazole [PriLOSEC] 40 mg PO DAILY 11/03/15 [History] Cholecalciferol (D-3) [Vitamin D] 1,000 unit PO DAILY 04/19/16 [History] Dicyclomine [Bentyl] 10 mg PO QID PRN #20 capsule 10/23/16 [Rx] Pnv95/Ferrous Fumarate/FA [ Vitamin Tablet] 1 each PO DAILY 11/15/16 [ History] 3 Allergy/AdvReac Type Severity Reaction Status Date / Time ibuprofen [From Motrin] AdvReac Gastrointestinal Verified 11/15/16 15:17 Upset NSAIDS (Non-Steroidal AdvReac Gastrointestinal Verified 11/15/16 15:17 Anti-Inflamma Upset Mental Status Exam Patient orientation: Yes Person, Yes Time, Yes Place Level of alertness: Alert Patient appearance: Appropriate Behavior: calm, cooperative Psychomotor activity: Normal Eye contact: Maintains Eye Contact Mood description: Euthymic/stable Affect description: congruent with mood Speech pattern: Normal rate, Normal rhythm, Normal tone, Coherent Speech volume: Normal Thought process: Intact Thought content: Yes Intact Attention span: Capable of Focused Attention, Capable of Sustained Attention Memory description: Grossly Intact Patient reliability: Reliable Historian Intelligence estimate: Average Judgment: Good Insight: Full Results - Vital Signs Vital signs: Temp Pulse Resp BP Pulse Ox 97.7 F 88 17 109/71 95 11/16/16 11:06 11/16/16 11:06 11/16/16 11:06 11/16/16 11:06 11/16/16 11:06 - Labs Labs: Laboratory Last Values WBC 7.3 K/mcL (4.3-11.1) 11/16/16 03:15 RBC 4.19 M/mcL (3.82-4.97) 11/16/16 03:15 Hgb 11.6 g/dL (11.5-15.4) D 11/16/16 03:15 Hct 36.3 % (35.3-44.9) 11/16/16 03:15 MCV 86.6 fL (83.0-100.0) 11/16/16 03:15 MCH 27.7 pg (28.0-33.3) L 11/16/16 03:15 MCHC 32.0 g/dL (31.6-35.5) 11/16/16 03:15 RDW 14.5 % (11.5-14.5) 11/16/16 03:15 Plt Count 359 K/mcL (140-400) 11/16/16 03:15 MPV 9.2 fL (9.4-12.4) L 11/16/16 03:15 Immature Gran % 0.3 % (0-4) 11/16/16 03:15 Seg Neutrophils % 64.5 % 11/16/16 03:15 Lymphocytes % 23.5 % 11/16/16 03:15 Monocytes % 8.6 % 11/16/16 03:15 Eosinophils % 2.7 % 11/16/16 03:15 Basophils % 0.4 % 11/16/16 03:15 Neutrophils # 4.7 K/mcL (1.6-8.9) 11/16/16 03:15 Lymphocytes # 1.7 K/mcL (0.6-4.6) 11/16/16 03:15 Monocytes # 0.6 K/mcL (0.0-1.3) 11/16/16 03:15 Eosinophils # 0.2 K/mcL (0.0-0.6) 11/16/16 03:15 Basophils # 0.0 K/mcL (0.0-0.2) 11/16/16 03:15 VBG pH 7.34 pH Units (7.32-7.42) 11/15/16 16:19 VBG pCO2 58 mmHg (41-51) H 11/15/16 16:19 VBG pO2 36 mmHg (25-50) 11/15/16 16:19 VBG HCO3 31 mEq/L (21-27) H 11/15/16 16:19 Sodium 142 mEq/L (136-145) 11/16/16 11:41 Potassium 4.1 mEq/L (3.5-4.5) 11/16/16 11:41 Chloride 109 mEq/L (98-109) 11/16/16 11:41 Carbon Dioxide 26 mEq/L (19-29) 11/16/16 11:41 BUN 9 mg/dL (7-20) 11/16/16 11:41 Creatinine 0.66 mg/dL (0.57-1.11) 11/16/16 11:41 Est GFR ( Amer) > 60 (> 60) 11/16/16 11:41 Est GFR (Non-Af Amer) > 60 (> 60) 11/16/16 11:41 BUN/Creatinine Ratio 14 (6-26) 11/16/16 11:41 Glucose 121 mg/dL (70-99) H 11/16/16 11:41 POC Glucose 131 (58-89) H 11/16/16 11:04 Est Mean Plasma Glucose 166 mg/dl 11/15/16 16:08 Hemoglobin A1c 7.4 % (-5.6) H 11/15/16 16:08 Calculated Osmolality 294 (280-300) 11/16/16 11:41 Calcium 8.5 mg/dL (8.6-10.8) L 11/16/16 11:41 Total Bilirubin 0.4 mg/dL (0.2-1.2) 11/15/16 16:08 AST 14 Units/L (5-34) 11/15/16 16:08 ALT 26 Units/L (0-55) 11/15/16 16:08 Alkaline Phosphatase 132 Units/L (38-126) H 11/15/16 16:08 Serum Total Protein 7.7 g/dL (6.0-8.3) 11/15/16 16:08 Albumin 3.7 g/dL (3.5-5.0) 11/15/16 16:08 Globulin 4.0 g/dL (2.4-3.5) H 11/15/16 16:08 Albumin/Globulin Ratio 0.9 (1.1-2.2) L 11/15/16 16:08 Urine Color Yellow (Yellow) 11/16/16 14:02 Urine Clarity Clear (Clear) 11/16/16 14:02 Urine pH 6.0 pH Units (5.0-8.0) 11/16/16 14:02 Ur Specific [place] 1.009 (1.010-1.025) L 11/16/16 14:02 Urine Protein Negative mg/dL (Neg-Trace) 11/16/16 14:02 Urine Glucose (UA) Normal mg/dL (Normal) 11/16/16 14:02 Urine Ketones Negative mg/dL (Negative) 11/16/16 14:02 Urine Blood Negative (Negative) 11/16/16 14:02 Urine Nitrite Negative (Negative) 11/16/16 14:02 Urine Bilirubin Negative (Negative) 11/16/16 14:02 Urine Urobilinogen Normal mg/dL (Normal) 11/16/16 14:02 Ur Leukocyte Esterase Small (Negative) H 11/16/16 14:02 Urine Microscopic RBC 0-3 per hpf (0-3) 11/16/16 14:02 Urine Microscopic WBC 5-15 per hpf (0-3) H 11/16/16 14:02 Ur Squamous Epith Cells Many per lpf (None-Few) H 11/16/16 14:02 Ur Renal Epithelial Cell Few per hpf (None-Few) 11/15/16 15:41 Urine Bacteria None Seen per hpf (None-Few) 11/16/16 14:02 Hyaline Casts None Seen per lpf (None-Few) 11/16/16 14:02 Ur Culture Indicated? YES (NO) A 11/16/16 14:02 Salicylates < 5.0 mg/dL (15-30) L 11/15/16 16:08 Acetaminophen < 1.0 mcg/mL (10-30) L 11/15/16 16:08 Ethyl Alcohol < 10 mg/dL (0-10) 11/15/16 16:08 Consult Discharge Plan - Plan Referrals: Remedios Marshall CNP [Primary Care Provider] -
[2016-11-16 15:19] LABS: Alanine Aminotransferase 25 Units/L (0-55); Albumin 2.9 g/dL (3.5-5.0); Albumin/Globulin Ratio 0.9 (1.1-2.2); Alkaline Phosphatase 107 Units/L (38-126); Aspartate Amino Transferase 17 Units/L (5-34); BUN/Creatinine Ratio 13 (6-26); Bilirubin,Total 0.3 mg/dL (0.2-1.2); Blood Urea Nitrogen 8 mg/dL (7-20); Calcium 8.2 mg/dL (8.6-10.8); Carbon Dioxide 25 mEq/L (19-29); Chloride 111 mEq/L (98-109); Globulin 3.1 g/dL (2.4-3.5); Glucose 152 mg/dL (70-99); Osmolality,Calculated 291 (280-300); Sodium 140 mEq/L (136-145); eGFR For African Americans > 60 (> 60); eGFR For Non-African Americans > 60 (> 60)
--- NOTE | 2016-11-16 19:05 | Electrocardiograph Report ---
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
[2016-11-17 02:08] LABS: Hematocrit 34.8 % (35.3-44.9); Hemoglobin 11.1 g/dL (11.5-15.4); Mean Corpuscular HGB Conc 31.9 g/dL (31.6-35.5); Mean Corpuscular Hemoglobin 27.8 pg (28.0-33.3); Mean Platelet Volume 9.4 fL (9.4-12.4); Platelet Count 349 K/mcL (140-400); Red Cell Distribution Width 14.2 % (11.5-14.5)
[2016-11-17 02:19] LABS: Alanine Aminotransferase 22 Units/L (0-55); Albumin 2.9 g/dL (3.5-5.0); Albumin/Globulin Ratio 0.9 (1.1-2.2); Alkaline Phosphatase 109 Units/L (38-126); Aspartate Amino Transferase 14 Units/L (5-34); BUN/Creatinine Ratio 9 (6-26); Bilirubin,Total 0.3 mg/dL (0.2-1.2); Blood Urea Nitrogen 7 mg/dL (7-20); Calcium 8.7 mg/dL (8.6-10.8); Carbon Dioxide 24 mEq/L (19-29); Chloride 108 mEq/L (98-109); Globulin 3.3 g/dL (2.4-3.5); Glucose 167 mg/dL (70-99); Osmolality,Calculated 292 (280-300); Potassium 4.2 mEq/L (3.5-4.5); Sodium 140 mEq/L (136-145); Total Protein 6.2 g/dL (6.0-8.3); eGFR For African Americans > 60 (> 60); eGFR For Non-African Americans > 60 (> 60)
[2016-11-17] MEDS: *HR* Morphine 2 MG/ML SYRINGE IVP PRN ×3 (03:01→11:09)
[2016-11-17] MEDS: 0.9 % Sodium Chloride 1,000 ML IVC SCH ×2 (03:03→11:06)
[2016-11-17] MEDS: *HR* Heparin 5,000 UNIT/ML VIAL SQ SCH (05:29)
[2016-11-17] MEDS: Insulin LISPRO 300 UNITS/3 ML VIAL SQ SCH ×2 (07:45→11:36)
[2016-11-17] MEDS: Gabapentin 300 MG CAPSULE PO SCH (09:16)
[2016-11-17 09:45] LABS: Ethylene Glycol NONE DETECTED
[2016-11-17 11:36] VITALS: BP 131/85
--- NOTE | 2016-11-17 12:02 | Discharge Summary ---
Date of Encounter: 11/17/16 Time of Encounter: 11:58 - Discharge Diagnosis (1) Antifreeze poisoning Priority: Primary Status: Acute Comments: Rosalva Ortiz is a 46-year-old female with past medical history diabetes who presented to [facility] on 11/15/2016 with complaints of dysuria, abdominal pain and low back pain after accidentally ingesting antifreeze. She was placed in observation status for continued monitoring. She was initially treated with the antidote, Fomepizole. Her Ethylene glycol and methanol levels came back as not detectable she was discharged home in stable condition. 1. Accidental antifreeze ingestion: on morning of presentation; patient reported accidentally drinking antifreeze that was in a pop can. Denied intentional ingestion (she was evaluated by psychiatry who also noted accidental ingestion ). Poison control contacted in ED and she was treated with the antidote Fomepizole. Ethylene glycol and methanol levels came back as not detectable. No further treatment needed. 2. Diabetes: per hx. Hgb A1c 7.4%. 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; Z79.4 - intermediate school teacher ( current) use of insulin; 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 - Discharge Medications Home Medications: Gabapentin [Neurontin] 600 mg PO TID 01/04/15 [History] Insulin Glargine,Hum.rec.anlog [Toujeo Solostar] 50 units SQ QPM #0 04/29/15 [ History] Omeprazole [PriLOSEC] 40 mg PO DAILY 11/03/15 [History] Cholecalciferol (D-3) [Vitamin D] 1,000 unit PO DAILY 04/19/16 [History] Dicyclomine [Bentyl] 10 mg PO QID PRN #20 capsule 10/23/16 [Rx] Pnv95/Ferrous Fumarate/FA [ Vitamin Tablet] 1 each PO DAILY 11/15/16 [ History] Allergies/Adverse Reactions: 3 Allergy/AdvReac Type Severity Reaction Status Date / Time ibuprofen [From Motrin] AdvReac Gastrointestinal Verified 11/15/16 15:17 Upset NSAIDS (Non-Steroidal AdvReac Gastrointestinal Verified 11/15/16 15:17 Anti-Inflamma Upset Date of admission: 11/15/16 16:44 Primary care physician: Remedios Marshall CNP Consults: 11/15/16 17:32 Consult to Psychiatry [CONS] Routine Consulting Provider: Psychiatry Enola Reason for Consult: Patient with accidental ingestion of antifreeze, but story is suspicious Call Completed: No Discharging clinician: Maria Luisa Arteaga Anticipated date of discharge: 11/17/16 - Patient Status Disposition: Home, Self-Care Functional capacity at discharge: independent ambulation Overall status at discharge: patient is back to baseline - Discharge Instructions Follow Up With: Remedios Mrashall CNP [Primary Care Provider] - - Diet and Activity Activity: resume usual activities as tolerated Diet: advance to your usual diet Interval History: Seen and examined at bedside; patient says she feels better and wants to go home today. Notified her of her negative methanol and ethanol glycol levels. She has no complaints. Hospital course: See assessment and plan for hospital course - Time Spent with Patient Total time spent providing and/or coordinating discharge services: Less than 30 minutes - Constitutional Vitals: Temp Pulse Resp BP Pulse Ox 97.8 F 90 16 131/85 95 11/17/16 11:34 11/17/16 11:34 11/17/16 11:34 11/17/16 11:34 11/17/16 11:34 General appearance: Present: A&O X 3, morbidly obese, pleasant, no acute distress - Head Head exam: Present: atraumatic, normocephalic - Eye Eye exam: Present: PERRL, conjuntiva pink, sclera anicteric Pupils: Present: PERRL - Neck Neck exam general surgery: Present: supple, trachea midline. Absent: lymphadenopathy - Respiratory Respiratory exam: Present: CTAB. Absent: accessory muscle use, rales, rhonchi, wheezes - Cardiovascular Cardiovascular exam: Present: RRR, +S1, +S2. Absent: diastolic murmur, gallop, rubs, systolic murmur - GI/Abdominal GI/Abdominal exam: Present: normal bowel sounds, soft, no peritoneal signs. Absent: distended, tenderness - Extremities Exam Extremities exam: Present: warm, radial pulses palpable and symmetrical. Absent : calf tenderness, cyanotic, pedal edema - Neurological Exam Neurological exam: Present: CN II-XII intact, oriented X3, no focal deficits. Absent: pronater drift, facial droop, speech deficit - Skin Skin exam: Present: dry, intact
[2016-11-17 14:09] LABS: Alanine Aminotransferase 29 Units/L (0-55); Albumin/Globulin Ratio 0.9 (1.1-2.2); Alkaline Phosphatase 110 Units/L (38-126); Aspartate Amino Transferase 20 Units/L (5-34); BUN/Creatinine Ratio 9 (6-26); Bilirubin,Total 0.2 mg/dL (0.2-1.2); Blood Urea Nitrogen 7 mg/dL (7-20); Calcium 8.8 mg/dL (8.6-10.8); Carbon Dioxide 26 mEq/L (19-29); Chloride 107 mEq/L (98-109); Globulin 3.4 g/dL (2.4-3.5); Glucose 195 mg/dL (70-99); Osmolality,Calculated 295 (280-300); Potassium 3.9 mEq/L (3.5-4.5); Sodium 141 mEq/L (136-145); Total Protein 6.4 g/dL (6.0-8.3); eGFR For African Americans > 60 (> 60); eGFR For Non-African Americans > 60 (> 60)
== END 2016-11-17 14:00 | disposition home or self-care (01) ==
LOC: EMEROO 15:02 → 3BNU 15:02
PROVIDERS: ADMIT Registered Nurse; ATTEND Registered Nurse

== ENCOUNTER 2016-11-30 03:40 | Observation (INO) ==
[2016-11-30] MEDS ORDERED: 0.9 % Sodium Chloride 500 ML IVC ONE (04:00)
--- NOTE | 2016-11-30 04:08 | Emergency Department Note ---
Disposition Clinical Impression: Chest pain Disposition: Still a Patient Condition: Good Forms: ED Satisfaction Letter Chest Pain HPI - General Chief Complaint: ED Chest Pain Stated Complaint: chest/back pain Time Seen by Provider: 11/30/16 03:52 Source: patient Mode of arrival: ambulatory Limitations: no limitations Vital Signs Reviewed: Yes Nursing Notes Reviewed: Yes - History of Present Illness HPI Narrative: Patient presents to the ED with the chief complaint of chest pain, shortness breath and headache. Patient reports that about 3 days ago she had the onset of substernal sharp pleuritic chest pain that radiates through to her back. Worse with deep breath on exertion. States that it does make her feel short of breath. She also complains of feeling nauseated and vomiting. Also complaining of a occipital headache. States she feels like her head is about to explode. No previous history of headaches. No changes in vision. No fever. States she does have a history of pulmonary embolism, which was after a surgery for cervical cancer many years ago but is no longer on blood thinners. She has had some pain and swelling in her legs that is equal bilaterally. States she just does not feel well at all. Severity scale (1-10): 8 - Related Data Home Medications Medication Instructions Recorded Confirmed Gabapentin [Neurontin] 600 mg PO TID 01/04/15 11/15/16 Insulin Glargine,Hum.rec.anlog 50 units SQ QPM #0 04/29/15 11/15/16 [Toujeo Solostar] Omeprazole [PriLOSEC] 40 mg PO DAILY 11/03/15 11/15/16 Cholecalciferol (D-3) [Vitamin D] 1,000 unit PO DAILY 04/19/16 11/15/16 Pnv95/Ferrous Fumarate/FA 1 each PO DAILY 11/15/16 11/15/16 [ Vitamin Tablet] Previous Rx's Medication Instructions Recorded Dicyclomine [Bentyl] 10 mg PO QID PRN #20 capsule 10/23/16 Dicyclomine [Bentyl] 10 mg PO QID PRN #20 capsule 11/19/16 Promethazine [Phenergan] 25 mg PO Q6HR PRN #12 tablet 11/19/16 Allergies Allergy/AdvReac Type Severity Reaction Status Date / Time ibuprofen [From Motrin] AdvReac Gastrointestinal Verified 11/30/16 03:48 Upset NSAIDS (Non-Steroidal AdvReac Gastrointestinal Verified 11/30/16 03:48 Anti-Inflamma Upset All systems ED: reviewed and negative except as stated. Constitutional: Denies: fever Eyes: Denies: vision change Cardiovascular: Reports: chest pain, dyspnea on exertion, edema Respiratory: Reports: dyspnea. Denies: cough Gastrointestinal: Reports: nausea, vomiting. Denies: abdominal pain Genitourinary: Denies: dysuria Integumentary: Denies: rash Neurological: Reports: headache. 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 Absent: tenderness, meningismus - Chest Chest inspection: Present: normal inspection, symmetric chest wall rise - Respiratory Respiratory exam: Present: normal lung sounds bilaterally - Cardiovascular Cardiovascular exam: Present: regular rate, normal rhythm, normal heart sounds - Abdominal Exam Abdominal exam: Present: soft, Non-Tender. Absent: tenderness, distention, guarding, rebound, rigidity - Extremities Exam Extremities exam: Present: normal inspection, full ROM, normal capillary refill. Absent: tenderness, pedal edema, calf tenderness - Neurological Exam Neurological exam: Present: alert, oriented X3, CN II-XII intact, normal gait - Psychiatric Psychiatric exam: Present: normal affect, normal mood - Skin Skin exam: Present: warm, dry, intact, normal color Course Vital Signs Temperature 97.8 F 11/30/16 03:42 Pulse Rate 99 11/30/16 03:42 Respiratory Rate 20 11/30/16 03:42 Blood Pressure 122/66 11/30/16 03:42 O2 Sat by Pulse Oximetry 96 11/30/16 03:42 Temperature 97.8 F 11/30/16 03:42 Pulse Rate 90 11/30/16 06:55 Respiratory Rate 16 11/30/16 06:55 Blood Pressure 130/89 11/30/16 06:55 O2 Sat by Pulse Oximetry 94 11/30/16 06:55 Oxygen Delivery Oxygen Delivery Room Air Chest Pain - Lab Data Result diagrams: 11/30/16 04:21 11/30/16 04:48 Lab Results 11/30/16 11/30/16 11/30/16 Range/Units 04:20 04:21 04:21 WBC (4.3-11.1) K/mcL RBC (3.82-4.97) M/mcL Hgb (11.5-15.4) g/dL Hct (35.3-44.9) % MCV (83.0-100.0) fL MCH (28.0-33.3) pg MCHC (31.6-35.5) g/dL RDW (11.5-14.5) % Plt Count (140-400) K/mcL MPV (9.4-12.4) fL Immature Gran % (0-4) % Seg Neutrophils % % Lymphocytes % % Monocytes % % Eosinophils % % Basophils % % Neutrophils # (1.6-8.9) K/mcL Lymphocytes # (0.6-4.6) K/mcL Monocytes # (0.0-1.3) K/mcL Eosinophils # (0.0-0.6) K/mcL Basophils # (0.0-0.2) K/mcL Nucleated RBCs/100 WBC (0) /100 WBC D-Dimer 829 H (0-500) ng/mLFEU Sodium (136-145) mEq/L Potassium (3.5-4.5) mEq/L Chloride (98-109) mEq/L Carbon Dioxide (19-29) mEq/L BUN (7-20) mg/dL Creatinine (0.57-1.11) mg/dL Est GFR ( Amer) (> 60) Est GFR (Non-Af Amer) (> 60) BUN/Creatinine Ratio (6-26) Glucose (70-99) mg/dL Calculated Osmolality (280-300) Calcium (8.6-10.8) mg/dL Troponin I (0-0.03) ng/mL B-Natriuretic Peptide 51 (0-100) pg/mL Lipase (8-78) Units/L Urine Color (Yellow) Urine Clarity (Clear) Urine pH (5.0-8.0) pH Units Ur Specific [place] (1.010-1.025) Urine Protein (Neg-Trace) mg/dL Urine Glucose (UA) (Normal) mg/dL Urine Ketones (Negative) mg/dL Urine Blood (Negative) Urine Nitrite (Negative) Urine Bilirubin (Negative) Urine Urobilinogen (Normal) mg/dL Ur Leukocyte Esterase (Negative) Urine Microscopic RBC (0-3) per hpf Urine Microscopic WBC (0-3) per hpf Ur Squamous Epith Cells (None-Few) per lpf Urine Bacteria (None-Few) per hpf Hyaline Casts (None-Few) per lpf Urine Mucus (Few) Ur Culture Indicated? (NO) Specimen Rejected Hemolyzed 11/30/16 11/30/16 11/30/16 Range/Units 04:21 04:48 04:48 WBC 9.8 (4.3-11.1) K/mcL RBC 4.44 (3.82-4.97) M/mcL Hgb 12.9 (11.5-15.4) g/dL Hct 38.7 (35.3-44.9) % MCV 87.2 (83.0-100.0) fL MCH 29.1 (28.0-33.3) pg MCHC 33.3 (31.6-35.5) g/dL RDW 15.2 H (11.5-14.5) % Plt Count 421 H (140-400) K/mcL MPV 9.1 L (9.4-12.4) fL Immature Gran % 1.7 (0-4) % Seg Neutrophils % 67.3 % Lymphocytes % 19.4 % Monocytes % 8.4 % Eosinophils % 2.6 % Basophils % 0.6 % Neutrophils # 6.6 (1.6-8.9) K/mcL Lymphocytes # 1.9 (0.6-4.6) K/mcL Monocytes # 0.8 (0.0-1.3) K/mcL Eosinophils # 0.3 (0.0-0.6) K/mcL Basophils # 0.1 (0.0-0.2) K/mcL Nucleated RBCs/100 WBC 0.2 H (0) /100 WBC D-Dimer (0-500) ng/mLFEU Sodium 141 (136-145) mEq/L Potassium 4.0 (3.5-4.5) mEq/L Chloride 106 (98-109) mEq/L Carbon Dioxide 25 (19-29) mEq/L BUN 9 (7-20) mg/dL Creatinine 0.69 (0.57-1.11) mg/dL Est GFR ( Amer) > 60 (> 60) Est GFR (Non-Af Amer) > 60 (> 60) BUN/Creatinine Ratio 13 (6-26) Glucose 116 H (70-99) mg/dL Calculated Osmolality 292 (280-300) Calcium 9.3 (8.6-10.8) mg/dL Troponin I 0.00 (0-0.03) ng/mL B-Natriuretic Peptide (0-100) pg/mL Lipase 20 (8-78) Units/L Urine Color (Yellow) Urine Clarity (Clear) Urine pH (5.0-8.0) pH Units Ur Specific [place] (1.010-1.025) Urine Protein (Neg-Trace) mg/dL Urine Glucose (UA) (Normal) mg/dL Urine Ketones (Negative) mg/dL Urine Blood (Negative) Urine Nitrite (Negative) Urine Bilirubin (Negative) Urine Urobilinogen (Normal) mg/dL Ur Leukocyte Esterase (Negative) Urine Microscopic RBC (0-3) per hpf Urine Microscopic WBC (0-3) per hpf Ur Squamous Epith Cells (None-Few) per lpf Urine Bacteria (None-Few) per hpf Hyaline Casts (None-Few) per lpf Urine Mucus (Few) Ur Culture Indicated? (NO) Specimen Rejected 11/30/16 Range/Units 05:27 WBC (4.3-11.1) K/mcL RBC (3.82-4.97) M/mcL Hgb (11.5-15.4) g/dL Hct (35.3-44.9) % MCV (83.0-100.0) fL MCH (28.0-33.3) pg MCHC (31.6-35.5) g/dL RDW (11.5-14.5) % Plt Count (140-400) K/mcL MPV (9.4-12.4) fL Immature Gran % (0-4) % Seg Neutrophils % % Lymphocytes % % Monocytes % % Eosinophils % % Basophils % % Neutrophils # (1.6-8.9) K/mcL Lymphocytes # (0.6-4.6) K/mcL Monocytes # (0.0-1.3) K/mcL Eosinophils # (0.0-0.6) K/mcL Basophils # (0.0-0.2) K/mcL Nucleated RBCs/100 WBC (0) /100 WBC D-Dimer (0-500) ng/mLFEU Sodium (136-145) mEq/L Potassium (3.5-4.5) mEq/L Chloride (98-109) mEq/L Carbon Dioxide (19-29) mEq/L BUN (7-20) mg/dL Creatinine (0.57-1.11) mg/dL Est GFR ( Amer) (> 60) Est GFR (Non-Af Amer) (> 60) BUN/Creatinine Ratio (6-26) Glucose (70-99) mg/dL Calculated Osmolality (280-300) Calcium (8.6-10.8) mg/dL Troponin I (0-0.03) ng/mL B-Natriuretic Peptide (0-100) pg/mL Lipase (8-78) Units/L Urine Color Dark Yellow (Yellow) Urine Clarity Cloudy A (Clear) Urine pH 7.5 (5.0-8.0) pH Units Ur Specific [place] 1.015 (1.010-1.025) Urine Protein 30 H (Neg-Trace) mg/dL Urine Glucose (UA) Normal (Normal) mg/dL Urine Ketones Negative (Negative) mg/dL Urine Blood Negative (Negative) Urine Nitrite Negative (Negative) Urine Bilirubin Negative (Negative) Urine Urobilinogen Normal (Normal) mg/dL Ur Leukocyte Esterase Small H (Negative) Urine Microscopic RBC 0-3 (0-3) per hpf Urine Microscopic WBC 5-15 H (0-3) per hpf Ur Squamous Epith Cells Many H (None-Few) per lpf Urine Bacteria Few (None-Few) per hpf Hyaline Casts None Seen (None-Few) per lpf Urine Mucus Few (Few) Ur Culture Indicated? YES A (NO) Specimen Rejected
[2016-11-30 04:30] LABS: Basophils # 0.1 K/mcL (0.0-0.2); Basophils % 0.6 %; Eosinophils # 0.3 K/mcL (0.0-0.6); Eosinophils % 2.6 %; Hematocrit 38.7 % (35.3-44.9); Hemoglobin 12.9 g/dL (11.5-15.4); Immature Granulocytes % 1.7 % (0-4); Lymphocytes # 1.9 K/mcL (0.6-4.6); Lymphocytes % 19.4 %; Mean Corpuscular HGB Conc 33.3 g/dL (31.6-35.5); Mean Corpuscular Hemoglobin 29.1 pg (28.0-33.3); Mean Corpuscular Volume 87.2 fL (83.0-100.0); Mean Platelet Volume 9.1 fL (9.4-12.4); Monocytes # 0.8 K/mcL (0.0-1.3); Monocytes % 8.4 %; Neutrophils # 6.6 K/mcL (1.6-8.9); Nucleated Red Blood Cells 0.2 /100 WBC (0); Platelet Count 421 K/mcL (140-400); Red Blood Count 4.44 M/mcL (3.82-4.97); Red Cell Distribution Width 15.2 % (11.5-14.5); Segmented Neutrophils % 67.3 %
[2016-11-30] MEDS ORDERED: *HR* HYDROmorphone (PF) 1 MG/ML SYRINGE IVP ONE ×2 (04:51→07:05)
--- NOTE | 2016-11-30 04:52 | Emergency Department Note ---
START Narrative - START START: I examined this patient and my medical decision-making was reviewed with the Resident Physician. I agree with the documented findings, disposition and treatment plan as described except to the extent set forth below. 46 yo F presents to the ER with pleuritic chest pain radiating into her back. History of a left-sided PE. She had been on Lovenox for 4 months. She states this was approximately one year ago. No recent long travels in a car plane. She states she does not have any blood clotting problems. Rather had that clot in her lung after a surgery. She denies any fevers. No lower leg pain and swelling today. Her d-dimer was elevated. We have ordered a CTA of the chest to evaluate for possible PE
[2016-11-30 05:11] LABS: BUN/Creatinine Ratio 13 (6-26); Blood Urea Nitrogen 9 mg/dL (7-20); Calcium 9.3 mg/dL (8.6-10.8); Carbon Dioxide 25 mEq/L (19-29); Chloride 106 mEq/L (98-109); Glucose 116 mg/dL (70-99); Lipase 20 Units/L (8-78); Osmolality,Calculated 292 (280-300); Sodium 141 mEq/L (136-145); eGFR For African Americans > 60 (> 60); eGFR For Non-African Americans > 60 (> 60)
[2016-11-30 05:34] LABS: Bilirubin,Urine Negative (Negative); Blood,Urine Negative (Negative); Clarity,Urine Cloudy (Clear); Color,Urine Dark Yellow (Yellow); Glucose,Urine (UA) Normal (Normal); Ketones,Urine Negative (Negative); Leukocyte Esterase,Urine Small (Negative); Nitrite,Urine Negative (Negative); PH,Urine 7.5 pH Units (5.0-8.0); Protein,Urine 30 mg/dL (Neg-Trace); Specific Gravity,Urine 1.015 (1.010-1.025); Urobilinogen,Urine Normal (Normal)
[2016-11-30 05:38] LABS: Hyaline Casts,Urine None Seen per lpf (None-Few); RBC,Urine 0-3 per hpf (0-3); Squamous Epithelial Cell,Urine Many per lpf (None-Few)
[2016-11-30 05:51] LABS: Bacteria,Urine Few per hpf (None-Few); Mucus,Urine Few (Few)
[2016-11-30] MEDS ORDERED: Aspirin 325 MG TABLET PO ONE (06:43)
--- NOTE | 2016-11-30 07:04 | Emergency Department Note ---
Disposition Clinical Impression: Chest pain Qualifiers: Chest pain type: unspecified Qualified Code(s): R07.9 - Chest pain, unspecified Disposition: Admitted As Inpatient Condition: Undetermined Referrals: Remedios Marshall CNP [Primary Care Provider] - Forms: ED Satisfaction Letter Time of Disposition: 07:27 Chest Pain HPI - General Chief Complaint: ED Chest Pain Stated Complaint: chest/back pain Time Seen by Provider: 11/30/16 03:52 Source: patient Mode of arrival: ambulatory Limitations: no limitations Vital Signs Reviewed: Yes Nursing Notes Reviewed: Yes - History of Present Illness HPI Narrative: Patient signed out by the night team. She is a 46-year-old female with history of diabetes and family history of OR with father having 3 heart attacks, personal history of PE, and cervical cancer, arrives [facility] emergency department complaining of exertional dyspnea and chest pain that has been ongoing over the course of the past 3 days. The patient states its intermittent nature and she has associated dyspnea. The patient has associated nausea as well. The patient states the pain is retrosternal and radiates to the left shoulder. Patient's workup here in the emergency department demonstrates an elevated d-dimer with a negative CTA of the chest for pulmonary embolus. The patient's EKG demonstrates no acute changes. The patient's workup demonstrates no acute findings. Given the previous family history and risk factors, combined with the patient not receiving any previous stress testing and exertional dyspnea and chest pain and the patient is experiencing, we will admit the patient to the hospitalist service. The patient agrees to this plan and will be admitted at this time. Onset (ago): day(s) (3) Duration: intermittent Onset: during exertion Pain Location: substernal, left chest Severity: moderate, severe Severity scale (1-10): 8 Quality: tightness, heaviness Pain Radiation: LUE Improves with: nothing Worsens with: nothing Associated symptoms: Reports: nausea Treatments prior to arrival chest pain: none - Related Data On Oral Contraceptives: No Home Medications Medication Instructions Recorded Confirmed Gabapentin [Neurontin] 600 mg PO TID 01/04/15 11/15/16 Insulin Glargine,Hum.rec.anlog 50 units SQ QPM #0 04/29/15 11/15/16 [Hugh Carrillo] Omeprazole [PriLOSEC] 40 mg PO DAILY 11/03/15 11/15/16 Cholecalciferol (D-3) [Vitamin D] 1,000 unit PO DAILY 04/19/16 11/15/16 Cyanocobalamin (Vitamin B-12) 1,000 mcg PO DAILY 11/30/16 [Vitamin B12] Flexeril 11/30/16 Allergies Allergy/AdvReac Type Severity Reaction Status Date / Time ibuprofen [From Motrin] AdvReac Gastrointestinal Verified 11/30/16 07:13 Upset NSAIDS (Non-Steroidal AdvReac Gastrointestinal Verified 11/30/16 07:13 Anti-Inflamma Upset All systems ED: reviewed and negative except as stated. Constitutional: Denies: fever Eyes: Denies: vision change Cardiovascular: Reports: chest pain, dyspnea on exertion, edema Respiratory: Reports: dyspnea. Denies: cough Gastrointestinal: Reports: nausea, vomiting. Denies: abdominal pain Genitourinary: Denies: dysuria Integumentary: Denies: rash Neurological: Reports: headache. Denies: weakness, paresthesias, confusion Chest Pain PMH - Past Medical History Medical history: Reports: arthritis, cancer, diabetes, pulmonary embolus, other Surgical history: Reports: cholecystectomy, herniorrhaphy, hysterectomy, other Psychiatric history: Reports: no psych history ZIPPER TRIMMER history: Reports: non-contributory, other - Social History Smoking Status: Never smoker Alcohol use: Reports: none Drug use: Reports: none Physical Exam - General Limitations: no limitations General appearance: alert, in no apparent distress - Head Head exam: atraumatic - Eye Eye exam: Present: normal appearance, PERRL, EOMI - ENT ENT exam: normal exam, normal oropharynx, mucous membranes moist - Neck Neck exam: Present: normal inspection, full ROM, trachea midline - Chest Chest inspection: Present: normal inspection, symmetric chest wall rise - Respiratory Respiratory exam: Present: normal lung sounds bilaterally - Cardiovascular Cardiovascular exam: Present: regular rate, normal rhythm, normal heart sounds - Abdominal Exam Abdominal exam: Present: soft, Non-Tender. Absent: tenderness, distention, guarding, rebound, rigidity - Extremities Exam Extremities exam: Present: normal inspection, full ROM. Absent: tenderness, pedal edema - Neurological Exam Neurological exam: Present: alert, oriented X3, CN II-XII intact Course Vital Signs Temperature 97.8 F 11/30/16 03:42 Pulse Rate 99 11/30/16 03:42 Respiratory Rate 20 11/30/16 03:42 Blood Pressure 122/66 11/30/16 03:42 O2 Sat by Pulse Oximetry 96 11/30/16 03:42 Temperature 97.8 F 11/30/16 03:42 Pulse Rate 90 11/30/16 06:55 Respiratory Rate 16 11/30/16 06:55 Blood Pressure 130/89 11/30/16 06:55 O2 Sat by Pulse Oximetry 94 11/30/16 06:55 Oxygen Delivery Oxygen Delivery Room Air Chest Pain - MDM Narrative Medical decision making narrative: Patient's workup in the emergency department demonstrates no acute finding. The patient's CTA of the chest was negative for pulmonary embolus. We will admit the patient to the hospitalist for trending of the troponin as well as possible further workup for cardiac testing. The patient does have risk factors including extensive family history of OR with her father having 3 MIs as well as personal history of diabetes. After discussion with the patient, she agrees to plan. She accepted to the hospitalist, Dr. Chester. - Lab Data Lab results reviewed: Yes I reviewed the patient's lab results. Result diagrams: 11/30/16 04:21 11/30/16 04:48 Lab Results 11/30/16 11/30/16 11/30/16 Range/Units 04:20 04:21 04:21 WBC (4.3-11.1) K/mcL RBC (3.82-4.97) M/mcL Hgb (11.5-15.4) g/dL Hct (35.3-44.9) % MCV (83.0-100.0) fL MCH (28.0-33.3) pg MCHC (31.6-35.5) g/dL RDW (11.5-14.5) % Plt Count (140-400) K/mcL MPV (9.4-12.4) fL Immature Gran % (0-4) % Seg Neutrophils % % Lymphocytes % % Monocytes % % Eosinophils % % Basophils % % Neutrophils # (1.6-8.9) K/mcL Lymphocytes # (0.6-4.6) K/mcL Monocytes # (0.0-1.3) K/mcL Eosinophils # (0.0-0.6) K/mcL Basophils # (0.0-0.2) K/mcL Nucleated RBCs/100 WBC (0) /100 WBC D-Dimer 829 H (0-500) ng/mLFEU Sodium (136-145) mEq/L Potassium (3.5-4.5) mEq/L Chloride (98-109) mEq/L Carbon Dioxide (19-29) mEq/L BUN (7-20) mg/dL Creatinine (0.57-1.11) mg/dL Est GFR ( Amer) (> 60) Est GFR (Non-Af Amer) (> 60) BUN/Creatinine Ratio (6-26) Glucose (70-99) mg/dL Calculated Osmolality (280-300) Calcium (8.6-10.8) mg/dL Troponin I (0-0.03) ng/mL B-Natriuretic Peptide 51 (0-100) pg/mL Lipase (8-78) Units/L Urine Color (Yellow) Urine Clarity (Clear) Urine pH (5.0-8.0) pH Units Ur Specific [place] (1.010-1.025) Urine Protein (Neg-Trace) mg/dL Urine Glucose (UA) (Normal) mg/dL Urine Ketones (Negative) mg/dL Urine Blood (Negative) Urine Nitrite (Negative) Urine Bilirubin (Negative) Urine Urobilinogen (Normal) mg/dL Ur Leukocyte Esterase (Negative) Urine Microscopic RBC (0-3) per hpf Urine Microscopic WBC (0-3) per hpf Ur Squamous Epith Cells (None-Few) per lpf Urine Bacteria (None-Few) per hpf Hyaline Casts (None-Few) per lpf Urine Mucus (Few) Ur Culture Indicated? (NO) Specimen Rejected Hemolyzed 11/30/16 11/30/16 11/30/16 Range/Units 04:21 04:48 04:48 WBC 9.8 (4.3-11.1) K/mcL RBC 4.44 (3.82-4.97) M/mcL Hgb 12.9 (11.5-15.4) g/dL Hct 38.7 (35.3-44.9) % MCV 87.2 (83.0-100.0) fL MCH 29.1 (28.0-33.3) pg MCHC 33.3 (31.6-35.5) g/dL RDW 15.2 H (11.5-14.5) % Plt Count 421 H (140-400) K/mcL MPV 9.1 L (9.4-12.4) fL Immature Gran % 1.7 (0-4) % Seg Neutrophils % 67.3 % Lymphocytes % 19.4 % Monocytes % 8.4 % Eosinophils % 2.6 % Basophils % 0.6 % Neutrophils # 6.6 (1.6-8.9) K/mcL Lymphocytes # 1.9 (0.6-4.6) K/mcL Monocytes # 0.8 (0.0-1.3) K/mcL Eosinophils # 0.3 (0.0-0.6) K/mcL Basophils # 0.1 (0.0-0.2) K/mcL Nucleated RBCs/100 WBC 0.2 H (0) /100 WBC D-Dimer (0-500) ng/mLFEU Sodium 141 (136-145) mEq/L Potassium 4.0 (3.5-4.5) mEq/L Chloride 106 (98-109) mEq/L Carbon Dioxide 25 (19-29) mEq/L BUN 9 (7-20) mg/dL Creatinine 0.69 (0.57-1.11) mg/dL Est GFR ( Amer) > 60 (> 60) Est GFR (Non-Af Amer) > 60 (> 60) BUN/Creatinine Ratio 13 (6-26) Glucose 116 H (70-99) mg/dL Calculated Osmolality 292 (280-300) Calcium 9.3 (8.6-10.8) mg/dL Troponin I 0.00 (0-0.03) ng/mL B-Natriuretic Peptide (0-100) pg/mL Lipase 20 (8-78) Units/L Urine Color (Yellow) Urine Clarity (Clear) Urine pH (5.0-8.0) pH Units Ur Specific [place] (1.010-1.025) Urine Protein (Neg-Trace) mg/dL Urine Glucose (UA) (Normal) mg/dL Urine Ketones (Negative) mg/dL Urine Blood (Negative) Urine Nitrite (Negative) Urine Bilirubin (Negative) Urine Urobilinogen (Normal) mg/dL Ur Leukocyte Esterase (Negative) Urine Microscopic RBC (0-3) per hpf Urine Microscopic WBC (0-3) per hpf Ur Squamous Epith Cells (None-Few) per lpf Urine Bacteria (None-Few) per hpf Hyaline Casts (None-Few) per lpf Urine Mucus (Few) Ur Culture Indicated? (NO) Specimen Rejected 11/30/16 Range/Units 05:27 WBC (4.3-11.1) K/mcL RBC (3.82-4.97) M/mcL Hgb (11.5-15.4) g/dL Hct (35.3-44.9) % MCV (83.0-100.0) fL MCH (28.0-33.3) pg MCHC (31.6-35.5) g/dL RDW (11.5-14.5) % Plt Count (140-400) K/mcL MPV (9.4-12.4) fL Immature Gran % (0-4) % Seg Neutrophils % % Lymphocytes % % Monocytes % % Eosinophils % % Basophils % % Neutrophils # (1.6-8.9) K/mcL Lymphocytes # (0.6-4.6) K/mcL Monocytes # (0.0-1.3) K/mcL Eosinophils # (0.0-0.6) K/mcL Basophils # (0.0-0.2) K/mcL Nucleated RBCs/100 WBC (0) /100 WBC D-Dimer (0-500) ng/mLFEU Sodium (136-145) mEq/L Potassium (3.5-4.5) mEq/L Chloride (98-109) mEq/L Carbon Dioxide (19-29) mEq/L BUN (7-20) mg/dL Creatinine (0.57-1.11) mg/dL Est GFR ( Amer) (> 60) Est GFR (Non-Af Amer) (> 60) BUN/Creatinine Ratio (6-26) Glucose (70-99) mg/dL Calculated Osmolality (280-300) Calcium (8.6-10.8) mg/dL Troponin I (0-0.03) ng/mL B-Natriuretic Peptide (0-100) pg/mL Lipase (8-78) Units/L Urine Color Dark Yellow (Yellow) Urine Clarity Cloudy A (Clear) Urine pH 7.5 (5.0-8.0) pH Units Ur Specific [place] 1.015 (1.010-1.025) Urine Protein 30 H (Neg-Trace) mg/dL Urine Glucose (UA) Normal (Normal) mg/dL Urine Ketones Negative (Negative) mg/dL Urine Blood Negative (Negative) Urine Nitrite Negative (Negative) Urine Bilirubin Negative (Negative) Urine Urobilinogen Normal (Normal) mg/dL Ur Leukocyte Esterase Small H (Negative) Urine Microscopic RBC 0-3 (0-3) per hpf Urine Microscopic WBC 5-15 H (0-3) per hpf Ur Squamous Epith Cells Many H (None-Few) per lpf Urine Bacteria Few (None-Few) per hpf Hyaline Casts None Seen (None-Few) per lpf Urine Mucus Few (Few) Ur Culture Indicated? YES A (NO) Specimen Rejected - Radiology Data Radiology results reviewed: Yes I reviewed the patient's radiology results. Attestation Statement - Attestation Attestation: I, Fer Mendoza DO, examined this patient [id number] and my medical decision-making was reviewed with Dr. Arik Heard, Resident Physician. I agree with the documented findings, disposition and treatment plan as described except to the extent set forth below. Please see my progress notes for details. 46-year-old female signed out from the nighttime physician Dr. Jordan and Dr. Marquez. Detailed review the presentation symptoms medical intervention presentation were discussed. Repeat bedside evaluation confirms an obese appearing female with some mild chest pressure and tightness. No significant cardiac history but does have family history cardiac problems. CT angiography is negative for dissection aneurysm or pulmonary emboli. Patient has negative initial cardiac marker repeat cardiac markers will be ordered on transition to the floor. EKG is otherwise unremarkable see documentation of this note is a physician's note. Patient is resting in the bed at this time pain controlled symptoms appear to be intermittent. Will be admitted to the hospital for cardiac evaluation rule out. See detailed documentation of physical exam, medical intervention, medical decision-making and disposition resident physician 's note
[2016-11-30] MEDS ORDERED: Nitroglycerin 1 INCH/GM PACKET TP ONE (07:06)
--- NOTE | 2016-11-30 08:26 | Internal Med History&Physical ---
Date of Encounter: 11/30/16 Time of Encounter: 08:23 Assessment and Plan (1) Precordial chest pain Current visit: Yes Status: Acute Atypical chest pain. The patient does have significant family history as well as diabetes and morbid obesity. Plan: Observation. Heart monitor. Trend troponin. Stress test and echocardiogram in the morning. (2) Morbid obesity with BMI of 40.0-44.9, adult Current visit: Yes Status: Acute I recommend outpatient weight loss regimen and lifestyle modification. Check lipid profile. (3) DVT prophylaxis Current visit: Yes Status: Acute Encourage early ambulation. She does not require pharmacological prophylaxis per VTE Assessment score. (4) Type 2 diabetes mellitus Current visit: No Status: Acute Diabetic diet. Check hemoglobin A1c. Start Levemir and Humalog pre-meal and sliding scale coverage. Blood glucose fingerstick before meals at bedtime. Qualifiers: Diabetes mellitus complication status: without complication Diabetes mellitus homemaker companion insulin use: with senior living use Qualified Code(s): E11.9 - Type 2 diabetes mellitus without complications; Z79.4 - quarantine officer (current) use of insulin; Z79.4 - intermediate (current) use of insulin; Z79.4 - quarantine officer ( current) use of insulin; Z79.4 - quarantine officer (current) use of insulin Internal Medicine - H&P: HPI Chief complaint: Chest pain Admitted From: Emergency Dept Plans for Post Hospital Care: Home History of present illness: Ms. Lawson is a 46 year old female with past medical history of type 2 diabetes and morbid obesity who presented to the hospital for chest pain. She states she has been having intermittent, left-sided, sharp and stabbing, severe chest pain lasting for 2 minutes at a time. She reports no aggravating or alleviating factors. The pain has been occurring for the last 2 days. Reports associated nausea, no vomiting. Also complains of headache, sore throat, no subjective fevers or chills, denies urinary symptoms, complaints of leg and arm swelling, complaints of diarrhea. A 10 point review of systems was negative except except as above. Past medical history: Type 2 diabetes, cervical cancer status post hysterectomy and fatty liver Family history: Patient's father suffered with multiple myocardial infarctions in his 40s. Patient's mother suffered with heart disease. Social history: She lives at home with her . She denies tobacco alcohol and drug use. Past Med Surg Social Fam HX - Past Medical History Medical history: arthritis, cancer, diabetes, pulmonary embolus, other Psychiatric history: no psych history - Past Surgical History Surgical History: cholecystectomy, herniorrhaphy, hysterectomy, other - Social History Smoking Status: Never smoker Smokeless Tobacco Status: No Alcohol use: none Drug use: none - Family History Mother Living Status: Still Living Hx Family Cardiac Disorders: Yes (CHF) Hx Family Respiratory Disorders: No Hx Family Cancer: No Hx Family GI Disorders: No Hx Family Endocrine Disorder: Yes (THYROID DX) Hx Family Neuromuscular Disorders: No Hx Family Neurologic Disorders: No Hx Family HEENT Disorders: No Hx Family Autoimmune Disorders: No Internal Medicine - H&P: Meds Gabapentin [Neurontin] 600 mg PO TID 01/04/15 [History] Insulin Glargine,Hum.rec.anlog [Toujeo Solostar] 50 units SQ QPM #0 04/29/15 [ History] Omeprazole [PriLOSEC] 40 mg PO DAILY 11/03/15 [History] Cholecalciferol (D-3) [Vitamin D] 1,000 unit PO DAILY 04/19/16 [History] Cyanocobalamin (Vitamin B-12) [Vitamin B12] 1,000 mcg PO DAILY 11/30/16 [History ] Flexeril 11/30/16 [History] 3 Allergy/AdvReac Type Severity Reaction Status Date / Time ibuprofen [From Motrin] AdvReac Gastrointestinal Verified 11/30/16 07:13 Upset NSAIDS (Non-Steroidal AdvReac Gastrointestinal Verified 11/30/16 07:13 Anti-Inflamma Upset All Systems PM: A 10-system review of systems was performed and is negative for pertinent findings except as documented above in the HPI. - Constitutional Vitals: Temp Pulse Resp BP Pulse Ox 97.8 F 86 16 131/92 95 11/30/16 03:42 11/30/16 07:48 11/30/16 07:48 11/30/16 07:48 11/30/16 07:48 General appearance: Present: A&O X 3, morbidly obese, no acute distress - Eye Eye exam: Present: PERRL, conjuntiva pink, sclera anicteric Pupils: Present: PERRL - Respiratory Respiratory exam: Present: CTAB. Absent: accessory muscle use, rales, rhonchi, wheezes - Cardiovascular Cardiovascular exam: Present: RRR, +S1, +S2. Absent: diastolic murmur, gallop, rubs, systolic murmur - GI/Abdominal GI/Abdominal exam: Present: normal bowel sounds, soft, no peritoneal signs. Absent: distended, tenderness - Extremities Exam Extremities exam: Present: warm, radial pulses palpable and symmetrical. Absent : calf tenderness, cyanotic, pedal edema - Neurological Exam Neurological exam: Present: CN II-XII intact, oriented X3, no focal deficits. Absent: facial droop, speech deficit - Skin Skin exam: Present: dry, intact Internal Med - H&P Results - Labs CBC & Chem 7: 11/30/16 04:21 11/30/16 04:48 - EKG Data -: EKG Interpreted by Myself (Sinus tachycardia 100 bpm, flat T waves in V4 to V6. ) Rate: tachycardia
[2016-11-30] MEDS ORDERED: Naloxone 0.4 MG/ML INJ IVP PRN (08:34)
[2016-11-30] MEDS ORDERED: Acetaminophen 325 MG TABLET PO PRN (08:34)
[2016-11-30] MEDS ORDERED: Ondansetron 4 MG/2 ML VIAL IVP PRN (08:34)
[2016-11-30] MEDS ORDERED: D5% in Water 1,000 ML IVC PRN (08:38)
[2016-11-30] MEDS ORDERED: *HR* Dextrose 50 % in Water (Syg) 50 ML SYRINGE IVP PRN (08:38)
[2016-11-30] MEDS ORDERED: Dextrose Gel 15 GM PO PRN ×2 (08:38)
[2016-11-30 09:13] LABS: Hemoglobin A1C 6.8 %
[2016-11-30] MEDS: Insulin LISPRO 300 UNITS/3 ML VIAL SQ SCH ×5 (09:23→16:31)
[2016-11-30] MEDS: Aspirin Enteric Coated 81 MG Tablet PO SCH (09:24)
[2016-11-30] MEDS: Insulin DETEMIR 100 UNIT/ML X5UNITS SQ SCH ×2 (09:24→20:00)
[2016-11-30] MEDS: *HR* HYDROcodone/Acet 5/325 mg TABLET PO PRN ×3 (12:01→21:16)
[2016-11-30] MEDS ORDERED: Nitroglycerin 0.4 MG TAB.SUBL SL ONE (13:50)
[2016-11-30] MEDS: Nitroglycerin 0.4 MG TAB.SUBL SL PRN ×2 (13:51→15:19)
--- NOTE | 2016-11-30 18:40 | Electrocardiograph Report ---
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
--- NOTE | 2016-11-30 18:42 | Electrocardiograph Report ---
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
[2016-12-01] MEDS: *HR* HYDROcodone/Acet 5/325 mg TABLET PO PRN ×4 (01:55→15:36)
[2016-12-01 03:29] LABS: Basophils # 0.1 K/mcL (0.0-0.2); Basophils % 0.8 %; Eosinophils # 0.4 K/mcL (0.0-0.6); Hematocrit 35.6 % (35.3-44.9); Hemoglobin 11.7 g/dL (11.5-15.4); Immature Granulocytes % 1.4 % (0-4); Lymphocytes # 1.7 K/mcL (0.6-4.6); Lymphocytes % 18.8 %; Mean Corpuscular HGB Conc 32.9 g/dL (31.6-35.5); Mean Corpuscular Hemoglobin 28.5 pg (28.0-33.3); Mean Corpuscular Volume 86.8 fL (83.0-100.0); Mean Platelet Volume 9.1 fL (9.4-12.4); Monocytes # 0.7 K/mcL (0.0-1.3); Monocytes % 7.3 %; Neutrophils # 6.2 K/mcL (1.6-8.9); Platelet Count 339 K/mcL (140-400); Red Cell Distribution Width 15.2 % (11.5-14.5); Segmented Neutrophils % 67.7 %
[2016-12-01 03:45] LABS: BUN/Creatinine Ratio 17 (6-26); Blood Urea Nitrogen 12 mg/dL (7-20); Calcium 9.1 mg/dL (8.6-10.8); Carbon Dioxide 27 mEq/L (19-29); Chloride 112 mEq/L (98-109); Chol/HDL Ratio 4.7 (0-4.9); Cholesterol 194 mg/dL (< 200); Glucose 107 mg/dL (70-99); HDL Cholesterol 41 mg/dL (40-59); LDL Cholesterol,Calculated 114 mg/dL (0-99); Osmolality,Calculated 300 (280-300); Sodium 145 mEq/L (136-145); Triglycerides 193 mg/dL (< 150); eGFR For African Americans > 60 (> 60); eGFR For Non-African Americans > 60 (> 60)
[2016-12-01] MEDS ORDERED: Regadenoson 0.4 MG/5 ML SYRINGE IVP ONE (06:44)
[2016-12-01] MEDS: Insulin LISPRO 300 UNITS/3 ML VIAL SQ SCH ×6 (07:41→18:16)
[2016-12-01] MEDS: Aspirin Enteric Coated 81 MG Tablet PO SCH (11:30)
[2016-12-01] MEDS: Insulin DETEMIR 100 UNIT/ML X5UNITS SQ SCH ×2 (11:31→20:34)
--- NOTE | 2016-12-01 14:30 | Internal Med Progress Note ---
Date of Encounter: 12/01/16 Time of Encounter: 14:28 - Assessment and plan (1) Precordial chest pain Current Visit: Yes Status: Acute Assessment and plan: Second part of the stress test scheduled for tomorrow Continue telemetry, troponins were negative Continue aspirin Echocardiogram showed an ejection fraction of 55-60% with mild diastolic dysfunction, no wall motion abnormalities (2) Pulmonary embolism Current Visit: No Status: Chronic Assessment and plan: History of PE Qualifiers: Pulmonary embolism type: other Chronicity: unspecified Acute cor pulmonale presence: without acute cor pulmonale Qualified Code(s): I26.99 - Other pulmonary embolism without acute cor pulmonale (3) Hyperkalemia Current Visit: No Status: Acute Assessment and plan: Monitor potassium, consider Kayexalate (4) Diabetes mellitus Current Visit: No Status: Acute Assessment and plan: Continue Levemir and insulin sliding scale Qualifiers: Diabetes mellitus type: type 2 Diabetes mellitus complication status: without complication Diabetes mellitus halfway insulin use: with rn long term care use Qualified Code(s): E11.9 - Type 2 diabetes mellitus without complications ; Z79.4 - MCFP (current) use of insulin; Z79.4 - [facility]FP (current) use of insulin; Z79.4 - [facility] (current) use of insulin; Z79.4 - truck terminal manager ( current) use of insulin (5) Morbid obesity with BMI of 40.0-44.9, adult Current Visit: Yes Status: Acute - Subjective Interval history: Patient developed chest pain last night that lasted for about an hour and half, denies any chest pain at the moment. He denies any shortness of breath. No abdominal pain, no dysuria, no fevers - Constitutional Vitals: Temp Pulse Resp BP Pulse Ox 98.0 F 85 16 122/80 95 12/01/16 11:32 12/01/16 11:32 12/01/16 11:32 12/01/16 11:32 12/01/16 11:32 General appearance: Present: A&O X 3, morbidly obese, no acute distress - Head Head exam: Present: atraumatic, normocephalic - Eye Eye exam: Present: PERRL, conjuntiva pink, sclera anicteric Pupils: Present: PERRL - Neck Neck exam general surgery: Present: supple, trachea midline. Absent: lymphadenopathy - Respiratory Respiratory exam: Present: CTAB. Absent: accessory muscle use, rales, rhonchi, wheezes - Cardiovascular Cardiovascular exam: Present: RRR, +S1, +S2. Absent: diastolic murmur, gallop, rubs, systolic murmur - GI/Abdominal GI/Abdominal exam: Present: normal bowel sounds, soft, no peritoneal signs. Absent: distended, tenderness - Extremities Exam Extremities exam: Present: warm, radial pulses palpable and symmetrical. Absent : calf tenderness, cyanotic, pedal edema - Neurological Exam Neurological exam: Present: CN II-XII intact, oriented X3, no focal deficits. Absent: pronater drift, facial droop, speech deficit - Skin Skin exam: Present: dry, intact Internal Medicine: Result - Labs CBC & Chem 7: 12/01/16 03:12 12/01/16 03:12 Labs: Short CBC 12/01/16 Range/Units 03:12 WBC 9.2 (4.3-11.1) K/mcL Hgb 11.7 (11.5-15.4) g/dL Hct 35.6 (35.3-44.9) % Plt Count 339 (140-400) K/mcL Neutrophils # 6.2 (1.6-8.9) K/mcL BMP 12/01/16 03:12 Sodium 145 Potassium 5.0 H D Chloride 112 H Carbon Dioxide 27 BUN 12 Creatinine 0.71 Glucose 107 H Calcium 9.1 Cardiac Enzymes 11/30/16 Range/Units 14:53 Troponin I 0.00 (0-0.03) ng/mL - ABG Interpretation ABG results: PT/INR, D-dimer D-Dimer 829 ng/mLFEU (0-500) H 11/30/16 04:21 - Impressions Impressions Echocardiogram 11/30/16 08:39 Impressions: LVEF 55-60%. Normal LV chamber size, wall thickness and function. Mild left ventricular diastolic dysfunction. Normal right ventricular structure and function. No evidence of pulmonary hypertension. No significant valvular dysfunction. Left Ventricular Wall Motion: Rest Echo Findings All wall segments showed normal motion. Findings: Study Quality * Technically adequate exam. ECG Findings * Normal sinus rhythm. Left Ventricle * LVEF 55-60%. * Normal LV chamber size, wall thickness and function. * Mild left ventricular diastolic dysfunction. Right Ventricle * Normal right ventricular structure and function. Left Atrium * Mildly dilated left atrium. Right Atrium * Normal right atrial size. Interatrial Septum * Interatrial septum not well evaluated. Aortic Valve * Trileaflet aortic valve with normal function. * No aortic stenosis. * Trace aortic regurgitation. Mitral Valve * Normal mitral valve structure and function. * No mitral regurgitation. * No mitral stenosis. Tricuspid Valve * Normal tricuspid valve structure and function. * Trace tricuspid regurgitation. * No evidence of pulmonary hypertension. Pulmonic Valve * Normal pulmonic valve structure and function. * No pulmonic regurgitation. Aorta * Normally sized aortic root. Pericardium * The pericardium appears normal. IVC * Normal IVC dimensions and inspiratory collapse. Pulmonary Artery * Normal visualized portions of the main pulmonary artery. Consult Discharge Plan - Plan Referrals: Remedios Marshall CNP [Primary Care Provider] -
[2016-12-01] MEDS: Nitroglycerin 0.4 MG TAB.SUBL SL PRN ×2 (15:13→15:21)
[2016-12-01] MEDS: 0.9 % Sodium Chloride 1,000 ML IVC SCH (15:36)
[2016-12-01] MEDS: *HR* Morphine 2 MG/ML SYRINGE IVP PRN ×2 (17:24→21:16)
[2016-12-02] MEDS: *HR* Morphine 2 MG/ML SYRINGE IVP PRN ×5 (01:23→20:34)
[2016-12-02 04:19] LABS: BUN/Creatinine Ratio 20 (6-26); Blood Urea Nitrogen 14 mg/dL (7-20); Calcium 8.9 mg/dL (8.6-10.8); Carbon Dioxide 25 mEq/L (19-29); Chloride 106 mEq/L (98-109); Glucose 104 mg/dL (70-99); Osmolality,Calculated 291 (280-300); Potassium 4.2 mEq/L (3.5-4.5); Sodium 140 mEq/L (136-145); eGFR For African Americans > 60 (> 60); eGFR For Non-African Americans > 60 (> 60)
[2016-12-02] MEDS: 0.9 % Sodium Chloride 1,000 ML IVC SCH (06:01)
[2016-12-02] MEDS: Insulin LISPRO 300 UNITS/3 ML VIAL SQ SCH ×6 (08:41→17:59)
[2016-12-02] MEDS: *HR* HYDROcodone/Acet 5/325 mg TABLET PO PRN ×2 (09:02→14:33)
[2016-12-02] MEDS: Aspirin Enteric Coated 81 MG Tablet PO SCH (09:02)
[2016-12-02] MEDS: Insulin DETEMIR 100 UNIT/ML X5UNITS SQ SCH ×2 (09:29→20:43)
--- NOTE | 2016-12-02 10:26 | Internal Med Progress Note ---
<Mariah Meyers - Last Filed: 12/02/16 14:26> Date of Encounter: 12/02/16 Time of Encounter: 10:23 - Assessment and plan (1) Precordial chest pain Current Visit: Yes Status: Acute Assessment and plan: Typical chest pain Patient admitted for retro sternal chest pain x 2 days, relieved with rest, worsened with exertion, radiates to back. Relieved by nitroglycerin and ED. troponins were negative x3 EKG shows NSr with no acute ST changes Echocardiogram showed an ejection fraction of 55-60% with mild diastolic dysfunction, no wall motion abnormalities CTA of the chest was negative for PE Stress test showed LEF=70%, nonspecific ST-T changes. Reversible perfusion defect involving the basal-mid anterior wall and apex. Findings are consistent with reversible myocardial ischemia. -Cardiology consulted and taking patient for [facility] tomorrow -NPO after midnight -Continue telemetry -Continue aspirin and statin -nitroglycerin PRN pain (2) Pulmonary embolism Current Visit: No Status: Chronic Assessment and plan: History of PE CTA of the chest was negative for PE Qualifiers: Pulmonary embolism type: other Chronicity: unspecified Acute cor pulmonale presence: without acute cor pulmonale Qualified Code(s): I26.99 - Other pulmonary embolism without acute cor pulmonale (3) Hyperkalemia Current Visit: No Status: Acute Assessment and plan: Resolved, potassium within normal limits (4) Diabetes mellitus Current Visit: No Status: Acute Assessment and plan: Continue Levemir and insulin sliding scale Qualifiers: Diabetes mellitus type: type 2 Diabetes mellitus complication status: without complication Diabetes mellitus penitentiary insulin use: with marine oil terminal superintendent use Qualified Code(s): E11.9 - Type 2 diabetes mellitus without complications ; Z79.4 - marine oil terminal superintendent (current) use of insulin; Z79.4 - marine oil terminal superintendent (current) use of insulin; Z79.4 - marine oil terminal superintendent (current) use of insulin; Z79.4 - marine oil terminal superintendent ( current) use of insulin (5) Morbid obesity with BMI of 40.0-44.9, adult Current Visit: Yes Status: Acute - Subjective Interval history: Laying in bed in mild distress Denies shortness of breath, nausea, vomiting, abdominal pain, diaphoresis Has just returned from stress test - Constitutional Vitals: Temp Pulse Resp BP Pulse Ox 98.1 F 85 16 94/59 94 12/02/16 06:50 12/02/16 06:50 12/02/16 06:50 12/02/16 06:50 12/02/16 06:50 General appearance: Present: A&O X 3, morbidly obese, no acute distress Exam: Gen.: Vitals noted. No acute distress. AAOx3 HEENT: oropharynx clear, Normocephalic, atraumatic Cardiac: RRR, no murmur, +S1/S2 Pulmonary: CTA bilaterally, no wheezes, rales or rhonchi, equal chest expansion Abdomen: soft, minimal dipper quadrant tender, Bowel sounds noted, no guarding MSK: ROM intact, no joint swelling noted Extremities: no BLE edema, nontender calf, no cyanosis or clubbing Neuro: A&Ox3 Psych: Appropriate mood and behavior Internal Medicine: Result - Labs CBC & Chem 7: 12/01/16 03:12 12/02/16 02:43 Labs: BMP 12/02/16 02:43 Sodium 140 Potassium 4.2 Chloride 106 Carbon Dioxide 25 BUN 14 Creatinine 0.69 Glucose 104 H Calcium 8.9 - ABG Interpretation ABG results: PT/INR, D-dimer D-Dimer 829 ng/mLFEU (0-500) H 11/30/16 04:21 Consult Discharge Plan - Plan Referrals: Remedios Marshall CNP [Primary Care Provider] - <Gonsalo Riley H - Last Filed: 12/02/16 14:54> Date of Encounter: 12/02/16 - Assessment and plan (1) Precordial chest pain Current Visit: Yes Status: Acute (2) Pulmonary embolism Current Visit: No Status: Chronic Qualifiers: Pulmonary embolism type: other Chronicity: unspecified Acute cor pulmonale presence: without acute cor pulmonale Qualified Code(s): I26.99 - Other pulmonary embolism without acute cor pulmonale (3) Hyperkalemia Current Visit: No Status: Acute (4) Diabetes mellitus Current Visit: No Status: Acute Qualifiers: Diabetes mellitus type: type 2 Diabetes mellitus complication status: without complication Diabetes mellitus marine oil terminal superintendent insulin use: with penitentiary use Qualified Code(s): E11.9 - Type 2 diabetes mellitus without complications ; Z79.4 - marine oil terminal superintendent (current) use of insulin; Z79.4 - halfway (current) use of insulin; Z79.4 - halfway (current) use of insulin; Z79.4 - marine oil terminal superintendent ( current) use of insulin (5) Morbid obesity with BMI of 40.0-44.9, adult Current Visit: Yes Status: Acute - Constitutional Vitals: Temp Pulse Resp BP Pulse Ox 98.6 F 79 16 105/66 96 12/02/16 11:35 12/02/16 11:35 12/02/16 11:35 12/02/16 11:35 12/02/16 11:35 Internal Medicine: Result - Labs CBC & Chem 7: 12/01/16 03:12 12/02/16 02:43 Labs: BMP 12/02/16 02:43 Sodium 140 Potassium 4.2 Chloride 106 Carbon Dioxide 25 BUN 14 Creatinine 0.69 Glucose 104 H Calcium 8.9 - ABG Interpretation ABG results: PT/INR, D-dimer D-Dimer 829 ng/mLFEU (0-500) H 11/30/16 04:21 - Attending Attestation abnormal stress test LHC in the morning per cardiology I examined this patient and my medical decision-making was reviewed with the Resident Physician. I agree with the documented findings, disposition and treatment plan as described except to the extent set forth below.
--- NOTE | 2016-12-02 13:23 | Cardiology Consult Note ---
Date of Encounter: 12/02/16 Time of Encounter: 13:00 Assessment and Plan (1) Abnormal stress test Current Visit: Yes Status: Acute Stress test reviewed with patient. Stress test showed medium sized, mild intensity, reversible perfusion defect involving the basal-mid anterior wall and apex. Findings are consistent with reversible myocardial ischemia. Chest pain is atypical but are increasing in frequency. She does have cardiac risk factor including IDDM and significant family history (mother + [place] in her 50 's). CTA of the chest was negative for PE. Troponin negative x 3. EKG shows NSr with no acute ST changes. LHC R/B/A was discussed. She agrees to proceed. Continue asa and statin therapy. (2) Chest pain Current Visit: Yes Status: Acute See plan above. Asa and statin. NTG SL PRN. Qualifiers: Chest pain type: unspecified Qualified Code(s): R07.9 - Chest pain, unspecified (3) Morbid obesity with BMI of 40.0-44.9, adult Current Visit: Yes Status: Acute Discussion w patient/family: The assessment and plan as outlined above was discussed with the patient and/or family members who expressed understanding and agreement. All questions were answered. Thank you for involving us in the care of your patient. Please call with any questions. History of Present Illness Consult date: 12/02/16 Requesting physician: Gonsalo Riley Consult reason: Abnormal stress test Chief complaint: Chest pain x one month History of present illness: Ms. Lawson is a 46 year old female with a history of DM type II, PE, uterine cancer s/p hysterectomy, anxiety, and obesity who presented with one month of chest pain. C/o intermittent midsternal chest pain radiating to her back. Her pain often occurred at rest but she noticed the pain with increased emotional stress. She notices her symptoms more when she is upset with one of her adult son's who are living in her home. She associates her chest pain with SOB, diaphoresis, and palpitations. She also was concerned the day before she came in when she found her self sitting in her bathroom and she did not remember how she got there. She says there was a memory lapse. She did not fall or pass out. She was given SL NTG in the ER with no relief of her pain. Her pain does improve with pain medication. Cardiology was consulted for abnormal two day stress test. Past Med Surg Social Fam HX - Past Medical History Attestation: Yes The following information was validated with the patient. Medical history: arthritis, cancer, diabetes, pulmonary embolus, other Psychiatric history: no psych history - Past Surgical History Surgical History: cholecystectomy, herniorrhaphy, hysterectomy, other - Social History Smoking Status: Never smoker Smokeless Tobacco Status: No Alcohol use: none Drug use: none - Family History Mother Living Status: Still Living Hx Family Cardiac Disorders: Yes (CHF) Hx Family Respiratory Disorders: No Hx Family Cancer: No Hx Family GI Disorders: No Hx Family Endocrine Disorder: Yes (THYROID DX) Hx Family Neuromuscular Disorders: No Hx Family Neurologic Disorders: No Hx Family HEENT Disorders: No Hx Family Autoimmune Disorders: No Medications and Allergies Gabapentin [Neurontin] 600 mg PO TID 01/04/15 [History] Insulin Glargine,Hum.rec.anlog [Toujeo Solostar] 50 units SQ QPM #0 04/29/15 [ History] Omeprazole [PriLOSEC] 40 mg PO DAILY 11/03/15 [History] Cholecalciferol (D-3) [Vitamin D] 1,000 unit PO DAILY 04/19/16 [History] Cyanocobalamin (Vitamin B-12) [Vitamin B12] 1,000 mcg PO DAILY 11/30/16 [History ] Dicyclomine [Bentyl] 10 mg PO QID PRN 11/30/16 [History] Diflunisal 500 mg PO Q12H 11/30/16 [History] Metaxalone [Skelaxin] 800 mg PO TID PRN 11/30/16 [History] Pnv95/Ferrous Fumarate/FA [Gnp Vitamins Tablet] 1 tab PO DAILY [History] Tramadol HCl [Ultram] 50 mg PO Q6-8H PRN 11/30/16 [History] 3 Allergy/AdvReac Type Severity Reaction Status Date / Time ibuprofen [From Motrin] AdvReac Gastrointestinal Verified 11/30/16 07:13 Upset NSAIDS (Non-Steroidal AdvReac Gastrointestinal Verified 11/30/16 07:13 Anti-Inflamma Upset All Systems Review: A 10-system review of systems was performed and is negative for pertinent findings except as documented above in the HPI. Physical Examination Vital Signs, Last 4 Hours Temp Pulse Resp BP Pulse Ox 12/02/16 11:35 98.6 F 79 16 105/66 96 General: Conversant, No Apparent Distress HEENT: Atraumatic, Normocephaly, Mucus Membranes Moist Neck: No JVD, Normal carotid pulses Cardiac: Reg Rate and Rhythm, Normal S1 and S2, No Murmur Lungs: Normal Breath Sounds, No Wheeze, Rales, Rhonchi Neuro: Alert and responsive, No focal deficits noted Abdomen: Soft, Non-Tender Skin: No rashes noted on visualized skin Musculoskeletal: No Chest Wall Tenderness Extremities: No Clubbing, No Cyanosis, No Edema, Normal Pulses Results 12/01/16 03:12 12/02/16 02:43 Lab Results 12/02/16 02:43 Sodium 140 Potassium 4.2 Chloride 106 Carbon Dioxide 25 BUN 14 Creatinine 0.69 Glucose 104 H Calcium 8.9 Chest X-Ray 11/30/16 04:01 IMPRESSION: Mild cardiomegaly with clear lungs. D/ / Matthew Nur MD / Matthew Nur MD Interpreting Provider: Matthew Nur MD Chest CTA 11/30/16 04:43 IMPRESSION: No evidence of pulmonary embolism or acute pulmonary abnormality. D/ / Matthew Nur MD / Matthew Nur MD Interpreting Provider: Matthew Nur MD Echocardiogram 11/30/16 08:39 Impressions: LVEF 55-60%. Normal LV chamber size, wall thickness and function. Mild left ventricular diastolic dysfunction. Normal right ventricular structure and function. No evidence of pulmonary hypertension. No significant valvular dysfunction. Left Ventricular Wall Motion: Rest Echo Findings All wall segments showed normal motion. - Imaging and Cardiology Stress Test: report reviewed Echo: report reviewed - EKG Interpretation EKG results cardiology: personally reviewed (SR with no acute ST changes.) Consult Discharge Plan - Plan Referrals: Remedios Marshall, [employer] [Primary Care Provider] -
--- NOTE | 2016-12-02 17:40 | Electrocardiograph Report ---
[place] [address] Test Date: 2016-11-30 Pat Name: Kelly Lawson Department: 113 Room: 3B38 Gender: F Clinical Project Leader: ROSI : 1970 Requested By: El [place] Order Number: [id number] Reading MD: Edgar Hu MD Measurements Intervals [place] Rate: 82 P: 10 [place]: 138 QRS: 54 QRSD: 90 T: 38 QT: 366 QTc: 405 Interpretive Statements SINUS RHYTHM Electronically Signed On 12-02-2016 17:38:46 EDT by Edgar Hu MD
[2016-12-03] MEDS: *HR* Morphine 2 MG/ML SYRINGE IVP PRN ×3 (01:27→09:38)
[2016-12-03] MEDS: 0.9 % Sodium Chloride 1,000 ML IVC SCH (01:29)
[2016-12-03 04:13] LABS: Basophils # 0.1 K/mcL (0.0-0.2); Basophils % 0.6 %; Eosinophils # 0.3 K/mcL (0.0-0.6); Eosinophils % 3.9 %; Hematocrit 36.9 % (35.3-44.9); Immature Granulocytes % 0.7 % (0-4); Lymphocytes # 1.3 K/mcL (0.6-4.6); Lymphocytes % 14.8 %; Mean Corpuscular HGB Conc 32.5 g/dL (31.6-35.5); Mean Corpuscular Hemoglobin 28.5 pg (28.0-33.3); Mean Corpuscular Volume 87.6 fL (83.0-100.0); Mean Platelet Volume 9.3 fL (9.4-12.4); Monocytes # 0.8 K/mcL (0.0-1.3); Neutrophils # 6.1 K/mcL (1.6-8.9); Platelet Count 359 K/mcL (140-400); Red Blood Count 4.21 M/mcL (3.82-4.97); Red Cell Distribution Width 14.9 % (11.5-14.5)
[2016-12-03 04:27] LABS: BUN/Creatinine Ratio 19 (6-26); Blood Urea Nitrogen 15 mg/dL (7-20); Calcium 9.1 mg/dL (8.6-10.8); Carbon Dioxide 26 mEq/L (19-29); Chloride 104 mEq/L (98-109); Glucose 104 mg/dL (70-99); Osmolality,Calculated 291 (280-300); Sodium 140 mEq/L (136-145); eGFR For African Americans > 60 (> 60); eGFR For Non-African Americans > 60 (> 60)
--- NOTE | 2016-12-03 06:14 | Electrocardiograph Report ---
[address] [address] Test Date: 2016-12-01 Pat Name: Kelly Lawson Department: 113 Room: 3B38 Gender: F Darkroom Technician: ROBLES : 1970 Requested By: Gonsalo Riley Order Number: [id number] Reading MD: Edgar Hu MD Measurements Intervals [place] Rate: 87 P: 5 ND: 135 QRS: 51 QRSD: 90 T: 33 QT: 377 QTc: 421 Interpretive Statements SINUS RHYTHM Electronically Signed On 12-03-2016 6:13:07 EDT by Edgar Hu MD
[2016-12-03] MEDS: Insulin LISPRO 300 UNITS/3 ML VIAL SQ SCH ×4 (07:52→12:29)
[2016-12-03] MEDS: Aspirin Enteric Coated 81 MG Tablet PO SCH (08:28)
[2016-12-03] MEDS: Insulin DETEMIR 100 UNIT/ML X5UNITS SQ SCH (09:39)
[2016-12-03] MEDS ORDERED: *HR* Heparin 10,000 UNIT/10 ML VIAL ONE (13:27)
[2016-12-03] MEDS ORDERED: Verapamil 5 MG/2 ML VIAL ONE (13:27)
[2016-12-03] MEDS ORDERED: Nitroglycerin 1,000 MCG/10 ML VIAL IV ONE (13:27)
[2016-12-03] MEDS ORDERED: 0.9 % Sodium Chloride 1,000 ML ONE ×2 (13:27→13:36)
[2016-12-03] MEDS ORDERED: Heparin 1,000 UNITS/500 mL NS 500 ML ONE (13:27)
--- NOTE | 2016-12-03 13:27 | Pre-Sedation Evaluation ---
Pre-sedation evaluation - Pre-sedation checklist Date of procedure: 12/03/16 Procedure: [facility] Recent Vitals: Last Vital Signs Temp 98.2 F 12/03/16 11:34 Pulse 74 12/03/16 11:34 Resp 17 12/03/16 11:34 BP 112/76 12/03/16 11:34 Pulse Ox 96 12/03/16 11:34 H&P (including ROS) documented in medical record: Yes Previous reaction to sedatives/anesthetics: Unknown Dietary Status: NPO after Midnight Dentition: No loose teeth or bridges ASA Classification *see protocol: CLASS II-Mild systemic disease Plan of Care: Pt appropriate candidate for procedure/moderate/conscious sedation , Risks/benefits of procedure/sedation discussed w/ patient/family
[2016-12-03] MEDS ORDERED: *HR* Midazolam HCl 2 MG/2 ML VIAL ONE ×2 (13:36→13:54)
[2016-12-03] MEDS ORDERED: *HR* FentaNYL (PF) 100 MCG/2 ML VIAL ONE (13:36)
--- NOTE | 2016-12-03 14:25 | Invasive Diagnostic Lab Proc ---
Name: Kelly Lawson Date of Study: 12/03/2016 Date: 1970 Ht: 66.1in Medical Record#: [id number] Age: 46 Wt: 262.35lb Gender: Female BSA: 2.25 Order #: [id number] BMI: 42.16 Physicians Procedure Physician: Edgar Hu MD, FACC Referring MD: Referring MD: Staff Name Position Time In Conor Cerrato RT (R) Scrub 01:37 PM Darrel Cass RT (R) Monitor 01:37 PM Eli Pruett RN Service Team Leader 01:37 PM Monica Weldon RN Service Team Leader 01:37 PM Indications Indication Abnormal Test - Stress Procedures Performed Procedure L HRT ARTERY/VENTRICLE ANGIO Pre-Procedure Checklist Informed consent is complete signed and on chart. H&P is on chart. ID band is on and ID verified with patient. Patient NPO for procedure The procedure was described for the patient and questions were answered. Blood Pressure: 103/69 ECG is on chart. Rhythm: NSR Plan of Care Patient will tolerate the procedure without complications. Adequate level of comfort will be maintained. Hemodynamics will remain stable Patient will recover from procedure without complications. Respiratory function will be maintained. Cardiac rhythm will remain stable. Patient temperature will be maintained. Patient and/or family have verbalized understanding of the procedure. Patient Education Chief Complaint/Reason for Test: Cardiac Cath Developmental Category: Adult (18-64 years) Developmentally Appropriate for Age: Yes Learning Barriers: None Education Needs: Procedure Education Method: Verbal Information Taught: Cardiac Cath Educational Evaluation: Able to repeat information Intravenous Access Time IV Size Location DC'd Fluid/Drip Rate Units RN 01:39 PM 20g 1 1/4" Patent On Arrival Rt Hand 0.9NaCl 20 ml/hr Monica Weldon RN Allergies NSAIDS Vital Signs Time BP (mmHg) HR (bpm) O2 Sat. RR (bpm) LOC 01:39 PM 103 / 69 89 94 % 16 5 = Fully awake and oriented or at pre-proc level 01:51 PM / % 4 = Oriented but drowsy 01:51 PM / % 5 = Fully awake and oriented or at pre-proc level 01:41 PM 124 / 82 69 100 % 01:46 PM 121 / 79 77 100 % 12 01:50 PM 107 / 79 79 100 % 33 01:56 PM 122 / 72 88 100 % 11 02:01 PM 115 / 70 81 98 % 14 02:06 PM 120 / 76 80 99 % 23 Procedural Medications Time Medication Dose Units Method Given By 01:38 PM Oxygen 2 L/min nasal cannula Monica Weldon RN 01:52 PM Lidocaine 2% 0.5 ml Subcutaneous Edgar Hu MD, [facility] 01:54 PM Heparin 4000 units Nitroglycerin 200 mcg Verapamil 2.5 mg Intraarterial Edgar Hu MD, FAC 01:54 PM Versed 1 mg Intravenous Monica Weldon RN 01:55 PM Fentanyl 25 mcg Intravenous Monica Weldon RN 01:38 PM Versed 2 mg Intravenous Monica Weldon RN 01:38 PM Fentanyl 50 mcg Intravenous Monica Weldon RN ASA Classification: CLASS II- Mild systemic disease (i.e. well-controlled diabetes, hypertension, asthma, cigarette smoking) Norman Score Preprocedure Postprocedure Activity 2- Moves 4 extremities sustained head lift Activity 2- Moves 4 extremities sustained head lift Circulation 2- SBP +/= 20 points of pre-anesthetic level Circulation 2- SBP +/= 20 points of pre-anesthetic level Consciousness 2- Awake and alert oriented x 3 Consciousness 2- Awake and alert oriented x 3 O2 Saturation 2- Able to maintain O2 satruation of 92% on room air O2 Saturation 2- Able to maintain O2 satruation of 92% on room air Respiratory 2- Able to deep breathe and cough well Respiratory 2- Able to deep breathe and cough well Total Score 10 Total Score 10 Contrast Agent: Isovue Diagnostic Contrast: 61 ml Total Contrast: 61 ml Fluoro Dose: 327 mGy Procedure Log Time Note Enter By 01:36 PM CathStat 01:37 PM Pt arrived to quality assurance lab technician 1 at 13:37 01:37 PM Conor Cerrato RT (R) Position: Scrub Time in: 13:37 01:37 PM Cass Rojo RT (R) Position: Monitor Time in: 13:37 01:37 PM Eli Pruett RN Position: Service Team Leader Time in: 13:37 01:38 PM Time: 13:38 Versed 2 mg Intravenous Given by Monica Weldon RN [facility] :38 PM Time: 13:38 Fentanyl 50 mcg Intravenous Given by Monica Weldon RN PM Monica Weldon RN Position: Service Team Leader Time in: 13:37 38 PM Patient charges- Angio tray pack, Navilyst 3mm J, Pulse Oximetry and ACIST tubing and transducer PM IV Supplies used: J loop Angio Cath. PM Case Delayed No, Inpatient PM Physician arrived 13: PM Meet and greet completed PM Sign in performed according to hospital policy. PM Procedure start : PM Time: : Oxygen on at 2 L/min per nasal cannula by Monica Weldon RN :40 PM Case Start :40 PM Vitals capture started with the following parameters, Patient=Adult, Interval=5 min, Initial Xhjfjylo=019 mmHg, Deflation Rate=5 mmHg, Cuff placed on Right Arm :40 PM ASA Class CLASS II- Mild systemic disease (i.e. well-controlled diabetes, hypertension, asthma, cigarette smoking) :41 PM HR=69 bpm, QFMR=455/82 mmhg, UgR9=798 % 01:42 PM Hair removed from procedure site in holding area using clippers. Right groin, right wrist prepped with Chloraprep by Margret Howard (R), safety strap applied then patient was draped. Skin intact. :46 PM HR=77 bpm, BHCN=962/79 mmhg, ZaE2=909 %, Resp=12 B/min 01:47 PM Pressure channel 1 zeroed. 01:50 PM HR=79 bpm, IRFS=326/79 mmhg, NaS5=648.0 %, Resp=33 B/min, Comment=NSR 01:51 PM Time: 13:51 Patient comfortable and pain free: Yes 51 PM Time: 13:51LOC: 4 = Oriented but drowsy :51 PM Clinical Presentation: Unstable angina dsp:52 PM Time out performed according to hospital policy :53 PM Time: 13:52 0.5 ml Lidocaine 2% to right radial Subcutaneous Given by Edgar Hu MD, [facility] :54 PM Access obtained by percutaneous puncture. 6Fr 10cm Terumo Glidesheath sheath placed in right Radial artery. [id number] :54 PM Time: 13:54 Patient given 4,000 units Heparin, 200 mcg Nitroglycerin, and 2.5 mg Verapamil Intraarterial by Edgar Hu MD, [facility] 55 PM Time: 13:54 Versed 1 mg Intravenous Given by Monica Weldon RN 55 PM Time: 13:55 Fentanyl 25 mcg Intravenous Given by Monica Weldon RN :55 PM 5Fr TIG catheter inserted over the wire [facility] : PM 0.035 145cm Navilyst 3mmJ wire [id number] :55 PM Recorded Pressure: Ao, HR=89, Condition=Condition 1 (Aorta) Ao 101/69/84 01:56 PM HR=88 bpm, IWKE=501/72 mmhg, UeC7=589.0 %, Resp=11 B/min, Comment=NSR 01:57 PM RCA angiography performed in multiple views. 01:58 PM Recorded Pressure: LV, HR=88, Condition=Condition 1 (Left Ventricle) LV 89/6/7 01:58 PM Pressure channel 1 zeroed. 01:59 PM Recorded Pressure: LV, HR=84, Condition=Condition 1 (Left Ventricle) LV 127/10/21 01:59 PM Recorded Pressure: LV, Ao, HR=84, Condition=Condition 1 (Left Ventricle) LV 135/11/25, (Aorta) Ao 128/71/102 02:00 PM Recorded Pressure: Ao, HR=88, Condition=Condition 1 (Aorta) Ao 118/95/106 02:00 PM Catheter selectively placed in left ventricle 02:00 PM Bolus angiogram of left Ventricle complete: 8 ml/sec for a total of 24 mls 02:00 PM Catheter removed 02:00 PM 5Fr FL3.5 catheter inserted over the wire [id number] 02:01 PM HR=81 bpm, FTZQ=519/70 mmhg, SpO2=98.0 %, Resp=14 B/min, Comment=NSR 02:02 PM LCA angiography performed in multiple views. 02:02 PM Recorded Pressure: Ao, HR=79, Condition=Condition 1 (Aorta) Ao 126/100/109 02:03 PM Recorded Pressure: Ao, HR=82, Condition=Condition 1 (Aorta) Ao 84/59/72 02:04 PM Catheter removed dspell 02:05 PM Procedure completed at 14:05 [email or web address] 02:06 PM HR=80 bpm, VGOW=216/76 mmhg, SpO2=99.0 %, Resp=23 B/min, Comment=NSR 02:06 PM Sign out completed: Radiation Dose 327.31 mGy Fluoro Time: 3.0 Isovue 370 - 200ml contrast 61 ml given by Edgar Hu MD, FACC. Complications: NoneCardiac Rehab Consult needed: NoConfirmed administered medications: Yes dspell 02:06 PM Isovue 370 - 200ml,1 Bottle(s) used. dspell 02:06 PM Time: 13:51 Patient comfortable and pain free: Yes dspell 02:06 PM Time: 13:51LOC: 5 = Fully awake and oriented or at pre-proc level dspell 02:06 PM Arterial sheath pulled, Vasc Band closure device used and was Successful S/N. dspell 02:07 PM Post ECG NSR dspell 02:07 PM Post Blood Pressure 120/76 dspellman 02:12 PM Coronary Dominance: right dspell 02:13 PM 12 ml air in Vasc Band. dspell 02:14 PM Information taught Cardiac Cath and Vasc Band dspell 02:14 PM Education needs Procedure, Plan of Care, and Responsibilities of Patient in Care dspell 02:14 PM Learning barriers :None dspell 02:14 PM Education Methods Verbal dspell 02:14 PM Education evaluation Able to repeat information dspell 02:14 PM Site status No bleeding/hematoma - Rt Wrist as reported by Conor Cerrato RT (R) at 14:14 dspellman 02:15 PM Report given to Mary ROB Pt taken to 3B Room #38. 14:14 dspellman 02:15 PM Patient out of room: 14:15 dspellman 02:15 PM Family placed in consult room. [email or web address] 02:15 PM Complications: None dspellman 02:15 PM Fluoro Time: 3 dspellman 02:15 PM Isovue 370 - 200ml contrast 61 ml given by Edgar Hu MD, FACC. souleymane 02:15 PM Radiation Dose 327.31 mGy souleymane Complications Complication None None Hemodynamics Pressures Site Systolic/A Wave Diastolic/V Wave Mean AO 101 69 84 LV 89 6 7 LV 127 10 21 LV 135 11 25 AO 128 71 102 AO 118 95 106 AO 126 100 109 AO 84 59 72 Post Procedure Information Blood Pressure: 120/76 mmHg Rhythm: NSR Post procedural instructions were given Closure Device Time Device Success/Fail 12/03/2016 2:16:00 PM Manual Compression Successful Site Checks Time Location Status Staff Sheath In? Note 02:14 PM Rt Wrist No bleeding/hematoma Conor Cerrato RT (R) Pulses Time Site Pre-Procedure Post-Procedure Note 12/03/2016 1:39:00 PM Bilateral DP & PT 2+ 12/03/2016 1:39:00 PM Bilateral radial 2+ Updated by Cass Rojo RT (R) on 12/03/2016 2:18:25 PM Cass Rojo RT electronically signed on 12/03/2016 2:19:15 PM with status of Final
--- NOTE | 2016-12-03 14:26 | Event Note ---
Date of Encounter: 12/03/16 Time of Encounter: 14:25 - Cardiology Event Note Per verbal discussion with , no intervention needed per [facility]. Cardiology will sign off and will follow in outpatient setting. Follow up set.
--- NOTE | 2016-12-03 14:34 | Discharge Summary ---
Date of Encounter: 12/03/16 Time of Encounter: 14:30 - Discharge Diagnosis (1) Precordial chest pain Priority: Primary Status: Acute (2) Pulmonary embolism Priority: Secondary Status: Chronic Qualifiers: Pulmonary embolism type: other Chronicity: unspecified Acute cor pulmonale presence: without acute cor pulmonale Qualified Code(s): I26.99 - Other pulmonary embolism without acute cor pulmonale (3) Hyperkalemia Priority: Secondary Status: Acute (4) Diabetes mellitus Priority: Secondary Status: Acute Qualifiers: Diabetes mellitus type: type 2 Diabetes mellitus complication status: without complication Diabetes mellitus custodial insulin use: with continuous churn buttermaker use Qualified Code(s): E11.9 - Type 2 diabetes mellitus without complications ; Z79.4 - penitentiary (current) use of insulin; Z79.4 - buttermaker continuous churn (current) use of insulin; Z79.4 - buttermaker continuous churn (current) use of insulin; Z79.4 - penitentiary ( current) use of insulin (5) Morbid obesity with BMI of 40.0-44.9, adult Priority: Secondary Status: Acute - Discharge Medications Prescriptions: Tramadol HCl [Ultram] 50 mg PO Q6H PRN #30 tablet PRN Reason: Pain Home Medications: Gabapentin [Neurontin] 600 mg PO TID 01/04/15 [History] Insulin Glargine,Hum.rec.anlog [Toujeo Solostar] 50 units SQ QPM #0 04/29/15 [ History] Omeprazole [PriLOSEC] 40 mg PO DAILY 11/03/15 [History] Cholecalciferol (D-3) [Vitamin D] 1,000 unit PO DAILY 04/19/16 [History] Cyanocobalamin (Vitamin B-12) [Vitamin B12] 1,000 mcg PO DAILY 11/30/16 [History ] Dicyclomine [Bentyl] 10 mg PO QID PRN 11/30/16 [History] Diflunisal 500 mg PO Q12H 11/30/16 [History] Metaxalone [Skelaxin] 800 mg PO TID PRN 11/30/16 [History] Pnv95/Ferrous Fumarate/FA [Gnp Vitamins Tablet] 1 tab PO DAILY [History] Tramadol HCl [Ultram] 50 mg PO Q6H PRN #30 tablet 12/03/16 [Rx] Allergies/Adverse Reactions: 3 Allergy/AdvReac Type Severity Reaction Status Date / Time ibuprofen [From Motrin] AdvReac Gastrointestinal Verified 11/30/16 07:13 Upset NSAIDS (Non-Steroidal AdvReac Gastrointestinal Verified 11/30/16 07:13 Anti-Inflamma Upset Procedures/tests Complete & Pending: Procedures Performed prior 72 hours Category Date Time Status CL Cardiac Catheterization [CL] Routine Archivist Political History 12/02/16 13:33 Ordered NM jose perf SPECT multi [NM] Routine Exams 12/01/16 07:00 Taken ECG 12 lead ECG [ECG] Routine Y 11/30/16 13:46 Completed ECG 12 lead ECG [ECG] Routine Y 12/01/16 00:02 Completed EKG [ECG 12 lead ECG] [ECG] Stat Y 11/30/16 23:28 Completed EKG [ECG 12 lead ECG] [ECG] Stat Y 12/02/16 10:25 Completed SP pharm nuclear stress Routine Y 12/01/16 07:30 Completed Date of admission: 11/30/16 07:53 Primary care physician: Remedios Marshall CNP - Patient Status Disposition: Home, Self-Care Condition: Good Overall status at discharge: patient is back to baseline - Discharge Instructions Follow Up With: Remedios Marshall CNP [Primary Care Provider] - Additional Instructions: Follow-up with primary care physician. Can take tramadol as needed for pain - Diet and Activity Activity: increase activity as tolerated Diet: diabetic diet Hospital course: Ms. Lawson is a 46 year old female with a history of DM type II insulin- dependent, obesity, obstructive arthritis, PE, fatty liver disease, uterine cancer s/p hysterectomy, anxiety, and obesity who presented with one month of chest pain. C/o intermittent midsternal chest pain radiating to her back. Her pain often occurred at rest but she noticed the pain with increased emotional stress. She noticed her symptoms more when she is upset with one of her adult son's who are living in her home. She associated her chest pain with SOB, diaphoresis, and palpitations. She also was concerned the day before she came in when she found her self sitting in her bathroom and she did not remember how she got there. She says there was a memory lapse. She did not fall or pass out. She was given SL NTG in the ER with no relief of her pain. Her pain does improve with pain medication. Cardiology was consulted for abnormal two day stress test that showed LEF=70%, nonspecific ST-T changes. Reversible perfusion defect involving the basal-mid anterior wall and apex. Findings are consistent with reversible myocardial ischemia. troponins were negative x3 EKG shows NSr with no acute ST changes Echocardiogram showed an ejection fraction of 55-60% with mild diastolic dysfunction, no wall motion abnormalities CTA of the chest was negative for PE A cardiac catheterization was performed, final report is pending but apparently did not show any obstruction/CAD. Patient is stable to be discharged home - Time Spent with Patient Total time spent providing and/or coordinating discharge services: Greater than 30 minutes (40 min) - Constitutional Vitals: Temp Pulse Resp BP Pulse Ox 98.2 F 74 17 112/76 96 12/03/16 11:34 12/03/16 11:34 12/03/16 11:34 12/03/16 11:34 12/03/16 11:34 General appearance: Present: A&O X 3, morbidly obese, no acute distress - Head Head exam: Present: atraumatic, normocephalic - Eye Eye exam: Present: PERRL, conjuntiva pink, sclera anicteric Pupils: Present: PERRL - Neck Neck exam general surgery: Present: supple, trachea midline. Absent: lymphadenopathy - Respiratory Respiratory exam: Present: CTAB. Absent: accessory muscle use, rales, rhonchi, wheezes - Cardiovascular Cardiovascular exam: Present: RRR, +S1, +S2. Absent: diastolic murmur, gallop, rubs, systolic murmur - GI/Abdominal GI/Abdominal exam: Present: normal bowel sounds, soft, no peritoneal signs. Absent: distended, tenderness - Extremities Exam Extremities exam: Present: warm, radial pulses palpable and symmetrical. Absent : calf tenderness, cyanotic, pedal edema Additional comments: Wrist wound without signs of hematoma - Neurological Exam Neurological exam: Present: CN II-XII intact, oriented X3, no focal deficits. Absent: pronater drift, facial droop, speech deficit - Skin Skin exam: Present: dry, intact
--- NOTE | 2016-12-03 14:41 | Electrocardiograph Report ---
[address] [place], [place] [address] Test Date: 2016-12-02 Pat Name: Kelly Lawson Department: 113 Room: 3B38 Gender: F General Technician: : 1970 Requested By: Mariah Meyers Order Number: [id number] Reading MD: Alycia Barton Measurements Intervals [place] Rate: 78 P: 33 IL: 150 QRS: 59 QRSD: 87 T: 45 QT: 358 QTc: 392 Interpretive Statements SINUS RHYTHM NONSPECIFIC T-WAVE ABNORMALITY Electronically Signed On 12-03-2016 14:39:24 EDT by Alycia Barton
[2016-12-03] MEDS: *HR* HYDROcodone/Acet 5/325 mg TABLET PO PRN (14:48)
[2016-12-03 16:24] VITALS: BP 126/83
== END 2016-12-03 16:50 | disposition home or self-care (01) ==
LOC: EMEROO 03:40 → 3BNU 03:40 → SUATTDRO 07:53 → 3BNU 08:12
PROVIDERS: ADMIT Registered Nurse; ATTEND Internal Medicine

== ENCOUNTER 2017-01-29 06:29 | Observation (INO) ==
[2017-01-29] MEDS ORDERED: Aspirin 81 MG TAB.CHEW PO ONE (06:45)
--- NOTE | 2017-01-29 06:50 | Emergency Department Note ---
Disposition Clinical Impression: Chest pain, rule out acute myocardial infarction, Abdominal pain of unknown etiology Disposition: Admitted As Inpatient Condition: Fair Time of Disposition: 10:41 Chest Pain HPI - General Chief Complaint: ED Chest Pain Stated Complaint: RLQ Pain / CP Time Seen by Provider: 01/29/17 06:32 Source: patient Limitations: no limitations Vital Signs Reviewed: Yes Nursing Notes Reviewed: Yes - History of Present Illness HPI Narrative: Nontoxic-appearing 46-year-old female presents for evaluation of multiple complaints. She states that just prior to arrival, she began to experience left -sided chest pain that does not radiate or migrate. She rates his pain an 8 out of 10 and describes it as a pressure. This is also accompanied by a degree of nausea as well as an episode of emesis. She denies any diaphoresis, productive cough, or hemoptysis. She does state that she has ran mild low- grade fevers up to 100 degrees Fahrenheit at home. She also complains of ongoing right lower quadrant abdominal pain. Of note, this patient had just eloped from this emergency department 2 hours prior to this visit. At that time , she was being seen for complaints of hematuria for the past one week. A urinalysis was performed which did show hematuria. She had also been seen here on 01/04 for the same complaint. According to previous documentation, she had not followed up with her primary care provider regarding this issue. She was given intramuscular Rocephin and a prescription for Keflex and a urology referral, however she eloped prior to receiving the prescription for Keflex or any of her other discharge paperwork. According to previous documentation from that visit, the patient denied any chest pain or other complaints. She denies any aggravating or alleviating factors for this chest pain she is currently experiencing. She states that she is short of breath as well. 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 Duration: constant Onset: during rest Pain Location: left chest Severity: moderate Severity scale (1-10): 8 Quality: other (pressure) Pain Radiation: none Improves with: nothing Worsens with: nothing Associated symptoms: Reports: nausea, vomiting, dyspnea Treatments prior to arrival chest pain: none - Related Data Home Medications Medication Instructions Recorded Confirmed Gabapentin [Neurontin] 600 mg PO TID 01/04/15 01/29/17 Insulin Glargine,Hum.rec.anlog 50 units SQ QPM #0 04/29/15 01/29/17 [Toujeo Solostar] Omeprazole [PriLOSEC] 40 mg PO DAILY 11/03/15 01/29/17 Cholecalciferol (D-3) [Vitamin D] 1,000 unit PO DAILY 04/19/16 01/29/17 Cyanocobalamin (Vitamin B-12) 1,000 mcg PO DAILY 11/30/16 01/29/17 [Vitamin B12] Dicyclomine [Bentyl] 10 mg PO QID PRN 11/30/16 01/29/17 Diflunisal 500 mg PO Q12H 11/30/16 01/29/17 Aspirin [Lo-Dose Aspirin EC] 81 mg PO DAILY 01/29/17 01/29/17 HYDROcodone/Acet 5/325 mg [[place] 1 tab PO Q4H PRN 01/29/17 01/29/17 5-325 mg] Previous Rx's Medication Instructions Recorded Ondansetron ODT [Zofran ODT] 4 mg SL Q6HR PRN #15 tab.rapdis 01/29/17 Allergies Allergy/AdvReac Type Severity Reaction Status Date / Time ibuprofen [From Motrin] AdvReac Gastrointestinal Verified 01/29/17 06:36 Upset NSAIDS (Non-Steroidal AdvReac Gastrointestinal Verified 01/29/17 06:36 Anti-Inflamma Upset All systems ED: reviewed and negative except as stated. Constitutional: Denies: fever, chills, weakness, weight change Eyes: Denies: eye pain, eye discharge, vision change ENT ED: Denies: ear pain, throat pain, dental pain, hearing loss, epistaxis, congestion, dysphagia Cardiovascular: Reports: as per HPI, chest pain. Denies: palpitations, dyspnea on exertion, edema, syncope Respiratory: Denies: cough, dyspnea, wheezes, hemoptysis, stridor Gastrointestinal: Reports: as per HPI, abdominal pain, nausea, vomiting. Denies : diarrhea, constipation, hematemesis, melena, hematochezia Genitourinary: Reports: as per HPI, hematuria. Denies: dysuria, frequency, discharge Musculoskeletal: Denies: back pain, neck pain, arthralgia, myalgia Integumentary: Denies: rash, abrasion, lesions Neurological: Denies: headache, weakness, numbness, paresthesias, confusion, abnormal gait, vertigo Psychiatric: Denies: anxiety, depression, suicidal thoughts, homicidal thoughts , auditory hallucinations, visual hallucinations Endocrine: Denies: fatigue Hematological/Lymphatic: Denies: easy bleeding, easy bruising Allergic/Immunologic: Denies: facial swelling, urticaria Chest Pain PMH - Past Medical History Medical history: Reports: arthritis, cancer, diabetes, pulmonary embolus, sudden cardiac , other Surgical history: Reports: cholecystectomy, herniorrhaphy, hysterectomy, other Psychiatric history: Reports: no psych history 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 Absent: nystagmus - ENT ENT exam: mucous membranes moist - Neck Neck exam: Present: normal inspection, full ROM, trachea midline - Chest Chest inspection: Present: normal inspection, symmetric chest wall rise - Respiratory Respiratory exam: Present: normal lung sounds bilaterally. Absent: respiratory distress, wheezes, stridor, accessory muscle use, prolonged expiratory phase - Cardiovascular Cardiovascular exam: Present: regular rate, normal rhythm, normal heart sounds - Abdominal Exam Abdominal exam: Present: soft, tenderness, normal bowel sounds, psoas sign, obturator sign, heel tap sign, tenderness at McBurney's Point. Absent: distention, guarding, rebound, rigidity, organomegaly, Em's sign, Rovsing's sign Abdominal tenderness: Present: RLQ, epigastrium, moderate - Extremities Exam Extremities exam: Present: normal inspection, full ROM. Absent: tenderness, pedal edema - Neurological Exam Neurological exam: Present: alert, oriented X3 - Psychiatric Psychiatric exam: Present: normal affect, normal mood - Skin Skin exam: Present: warm, dry, intact, normal color Course Course Narrative: Patient had initially complete resolution of her chest pain after the initial administration of IV morphine. She had in fact stated that she felt well enough to be discharged home. I had a discussion that I would at least like to obtain a delta troponin. She was agreeable to this prior to disposition. When I returned to the patient's room to discuss the details of her negative delta troponin, the patient was found to be writhing in bed stating that her chest pain had returned. I discussed with the patient that I cannot discharge her home and she is still having active chest pain. The patient agrees to hospitalization at this time. 1035: I discussed this patient's case with Dr. Fernando, hospitalist fur ironer. Dr. Fernando has accepted the patient for admission to his services for further evaluation of her chest pain as well as the abdominal pain of unknown etiology. I have discussed this patient's case with Dr. Yuli Mohamud. Dr. Yuli Mohamud has also had a [id number] evaluation with the patient. Vital Signs Temperature 98.8 F 01/29/17 06:37 Pulse Rate 79 01/29/17 06:37 Respiratory Rate 16 01/29/17 06:37 Blood Pressure 138/85 01/29/17 06:37 O2 Sat by Pulse Oximetry 98 01/29/17 06:37 Temperature 98.8 F 01/29/17 06:37 Pulse Rate 77 01/29/17 08:44 Respiratory Rate 20 01/29/17 08:44 Blood Pressure 109/56 01/29/17 08:44 O2 Sat by Pulse Oximetry 96 01/29/17 08:45 Oxygen Delivery Oxygen Delivery Room Air Chest Pain - Medical Records Medical records reviewed: Yes I reviewed the patient's medical records. - Lab Data Lab results reviewed: Yes I reviewed the patient's lab results. Lab results narrative: Laboratory Last Values WBC 7.6 K/mcL (4.3-11.1) 01/29/17 07:03 RBC 4.63 M/mcL (3.82-4.97) 01/29/17 07:03 Hgb 13.2 g/dL (11.5-15.4) 01/29/17 07:03 Hct 40.3 % (35.3-44.9) 01/29/17 07:03 MCV 87.0 fL (83.0-100.0) 01/29/17 07:03 MCH 28.5 pg (28.0-33.3) 01/29/17 07:03 MCHC 32.8 g/dL (31.6-35.5) 01/29/17 07:03 RDW 13.8 % (11.5-14.5) 01/29/17 07:03 Plt Count 371 K/mcL (140-400) 01/29/17 07:03 MPV 9.6 fL (9.4-12.4) 01/29/17 07:03 Immature Gran % 0.4 % (0-4) 01/29/17 07:03 Seg Neutrophils % 68.6 % 01/29/17 07:03 Lymphocytes % 19.3 % 01/29/17 07:03 Monocytes % 7.9 % 01/29/17 07:03 Eosinophils % 3.3 % 01/29/17 07:03 Basophils % 0.5 % 01/29/17 07:03 Neutrophils # 5.2 K/mcL (1.6-8.9) 01/29/17 07:03 Lymphocytes # 1.5 K/mcL (0.6-4.6) 01/29/17 07:03 Monocytes # 0.6 K/mcL (0.0-1.3) 01/29/17 07:03 Eosinophils # 0.3 K/mcL (0.0-0.6) 01/29/17 07:03 Basophils # 0.0 K/mcL (0.0-0.2) 01/29/17 07:03 PT 10.6 Seconds (9.4-12.1) 01/29/17 07:03 INR 1.0 01/29/17 07:03 APTT 34.9 Seconds (26.0-36.0) 01/29/17 07:03 Sodium 139 mEq/L (136-145) 01/29/17 07:03 Potassium 4.4 mEq/L (3.5-4.5) 01/29/17 07:03 Chloride 103 mEq/L (98-109) 01/29/17 07:03 Carbon Dioxide 25 mEq/L (19-29) 01/29/17 07:03 BUN 19 mg/dL (7-20) 01/29/17 07:03 Creatinine 0.76 mg/dL (0.57-1.11) 01/29/17 07:03 Est GFR ( Amer) > 60 (> 60) 01/29/17 07:03 Est GFR (Non-Af Amer) > 60 (> 60) 01/29/17 07:03 BUN/Creatinine Ratio 25 (6-26) 01/29/17 07:03 Glucose 178 mg/dL (70-99) H 01/29/17 07:03 Calculated Osmolality 295 (280-300) 01/29/17 07:03 Lactic Acid 1.7 mmol/L (0.5-2.2) 01/29/17 07:27 Calcium 9.5 mg/dL (8.6-10.8) 01/29/17 07:03 Total Bilirubin 0.4 mg/dL (0.2-1.2) 01/29/17 07:03 AST 18 Units/L (5-34) 01/29/17 07:03 ALT 24 Units/L (0-55) 01/29/17 07:03 Alkaline Phosphatase 107 Units/L (38-126) 01/29/17 07:03 Troponin I 0.00 ng/mL (0-0.03) 01/29/17 09:52 Serum Total Protein 7.6 g/dL (6.0-8.3) 01/29/17 07:03 Albumin 3.5 g/dL (3.5-5.0) 01/29/17 07:03 Globulin 4.1 g/dL (2.4-3.5) H 01/29/17 07:03 Albumin/Globulin Ratio 0.9 (1.1-2.2) L 01/29/17 07:03 Amylase 52 Units/L (25-125) 01/29/17 07:03 Lipase 15 Units/L (8-78) 01/29/17 07:03 Result diagrams: 01/29/17 07:03 01/29/17 07:03 Lab Results 01/29/17 01/29/17 01/29/17 Range/Units 07:03 07:03 07:03 WBC 7.6 (4.3-11.1) K/mcL RBC 4.63 (3.82-4.97) M/mcL Hgb 13.2 (11.5-15.4) g/dL Hct 40.3 (35.3-44.9) % MCV 87.0 (83.0-100.0) fL MCH 28.5 (28.0-33.3) pg MCHC 32.8 (31.6-35.5) g/dL RDW 13.8 (11.5-14.5) % Plt Count 371 (140-400) K/mcL MPV 9.6 (9.4-12.4) fL Immature Gran % 0.4 (0-4) % Seg Neutrophils % 68.6 % Lymphocytes % 19.3 % Monocytes % 7.9 % Eosinophils % 3.3 % Basophils % 0.5 % Neutrophils # 5.2 (1.6-8.9) K/mcL Lymphocytes # 1.5 (0.6-4.6) K/mcL Monocytes # 0.6 (0.0-1.3) K/mcL Eosinophils # 0.3 (0.0-0.6) K/mcL Basophils # 0.0 (0.0-0.2) K/mcL PT 10.6 (9.4-12.1) Seconds INR 1.0 APTT 34.9 (26.0-36.0) Seconds Sodium 139 (136-145) mEq/L Potassium 4.4 (3.5-4.5) mEq/L Chloride 103 (98-109) mEq/L Carbon Dioxide 25 (19-29) mEq/L BUN 19 (7-20) mg/dL Creatinine 0.76 (0.57-1.11) mg/dL Est GFR ( Amer) > 60 (> 60) Est GFR (Non-Af Amer) > 60 (> 60) BUN/Creatinine Ratio 25 (6-26) Glucose 178 H (70-99) mg/dL Calculated Osmolality 295 (280-300) Lactic Acid (0.5-2.2) mmol/L Calcium 9.5 (8.6-10.8) mg/dL Total Bilirubin 0.4 (0.2-1.2) mg/dL AST 18 (5-34) Units/L ALT 24 (0-55) Units/L Alkaline Phosphatase 107 (38-126) Units/L Troponin I (0-0.03) ng/mL Serum Total Protein 7.6 (6.0-8.3) g/dL Albumin 3.5 (3.5-5.0) g/dL Globulin 4.1 H (2.4-3.5) g/dL Albumin/Globulin Ratio 0.9 L (1.1-2.2) Amylase 52 (25-125) Units/L Lipase 15 (8-78) Units/L 12/19/17 12/19/17 12/19/17 Range/Units 07:03 07:27 09:52 WBC (4.3-11.1) K/mcL RBC (3.82-4.97) M/mcL Hgb (11.5-15.4) g/dL Hct (35.3-44.9) % MCV (83.0-100.0) fL MCH (28.0-33.3) pg MCHC (31.6-35.5) g/dL RDW (11.5-14.5) % Plt Count (140-400) K/mcL MPV (9.4-12.4) fL Immature Gran % (0-4) % Seg Neutrophils % % Lymphocytes % % Monocytes % % Eosinophils % % Basophils % % Neutrophils # (1.6-8.9) K/mcL Lymphocytes # (0.6-4.6) K/mcL Monocytes # (0.0-1.3) K/mcL Eosinophils # (0.0-0.6) K/mcL Basophils # (0.0-0.2) K/mcL PT (9.4-12.1) Seconds INR APTT (26.0-36.0) Seconds Sodium (136-145) mEq/L Potassium (3.5-4.5) mEq/L Chloride (98-109) mEq/L Carbon Dioxide (19-29) mEq/L BUN (7-20) mg/dL Creatinine (0.57-1.11) mg/dL Est GFR ( Amer) (> 60) Est GFR (Non-Af Amer) (> 60) BUN/Creatinine Ratio (6-26) Glucose (70-99) mg/dL Calculated Osmolality (280-300) Lactic Acid 1.7 (0.5-2.2) mmol/L Calcium (8.6-10.8) mg/dL Total Bilirubin (0.2-1.2) mg/dL AST (5-34) Units/L ALT (0-55) Units/L Alkaline Phosphatase (38-126) Units/L Troponin I 0.01 0.00 (0-0.03) ng/mL Serum Total Protein (6.0-8.3) g/dL Albumin (3.5-5.0) g/dL Globulin (2.4-3.5) g/dL Albumin/Globulin Ratio (1.1-2.2) Amylase (25-125) Units/L Lipase (8-78) Units/L - Radiology Data Radiology results reviewed: Yes I reviewed the patient's radiology results. Chest X-Ray 01/29/17 06:45 IMPRESSION: No acute cardiopulmonary pathology. D/ / Olvin Moreira MD / Olvin Moreira MD Interpreting Provider: Olvin Moreira MD Abdomen/Pelvis CT 01/29/17 07:43 IMPRESSION: Negative CT examination of the abdomen pelvis with no evidence for acute process including normal appearing appendix. Few incidental/chronic findings as described including hepatic fatty infiltration. D/ / Darlene River MD / Darlene River MD Interpreting Provider: Darlene River MD - EKG Data EKG attestation: Yes I reviewed and interpreted this EKG. EKG results narrative: EKG reviewed by Dr. Valdez as well. EKG shows a sinus rhythm with nonspecific ST and T wave abnormalities at a rate of 84 bpm. [place] interval 140, QRS duration 90, QT/QTc interval 331/372. No ectopy noted. No STEMI. No significant changes when compared to an EKG dated from 12/17/16. Heart Score - Score History: Moderately Suspicious EKG: Non Specific repolarisation Disturbance Age: 45-65 Risk Factors: Equal/Greater than 3 risk factor or history of atherosclerotic disease Troponin: Less than normal limit HEART Score Total: 5
[2017-01-29] MEDS: Nitroglycerin 0.4 MG TAB.SUBL SL ONE ×3 (07:08→07:29)
[2017-01-29 07:11] LABS: Basophils % 0.5 %; Eosinophils # 0.3 K/mcL (0.0-0.6); Eosinophils % 3.3 %; Hematocrit 40.3 % (35.3-44.9); Hemoglobin 13.2 g/dL (11.5-15.4); Immature Granulocytes % 0.4 % (0-4); Lymphocytes # 1.5 K/mcL (0.6-4.6); Lymphocytes % 19.3 %; Mean Corpuscular HGB Conc 32.8 g/dL (31.6-35.5); Mean Corpuscular Hemoglobin 28.5 pg (28.0-33.3); Mean Platelet Volume 9.6 fL (9.4-12.4); Monocytes # 0.6 K/mcL (0.0-1.3); Monocytes % 7.9 %; Neutrophils # 5.2 K/mcL (1.6-8.9); Platelet Count 371 K/mcL (140-400); Red Blood Count 4.63 M/mcL (3.82-4.97); Red Cell Distribution Width 13.8 % (11.5-14.5); Segmented Neutrophils % 68.6 %
[2017-01-29 07:21] LABS: Prothrombin Time 10.6 Seconds (9.4-12.1)
[2017-01-29 07:24] LABS: Activated Partial Thrombo Time 34.9 Seconds (26.0-36.0)
[2017-01-29 07:26] LABS: Alanine Aminotransferase 24 Units/L (0-55); Albumin 3.5 g/dL (3.5-5.0); Albumin/Globulin Ratio 0.9 (1.1-2.2); Alkaline Phosphatase 107 Units/L (38-126); Amylase 52 Units/L (25-125); Aspartate Amino Transferase 18 Units/L (5-34); BUN/Creatinine Ratio 25 (6-26); Bilirubin,Total 0.4 mg/dL (0.2-1.2); Blood Urea Nitrogen 19 mg/dL (7-20); Calcium 9.5 mg/dL (8.6-10.8); Carbon Dioxide 25 mEq/L (19-29); Chloride 103 mEq/L (98-109); Globulin 4.1 g/dL (2.4-3.5); Glucose 178 mg/dL (70-99); Lipase 15 Units/L (8-78); Osmolality,Calculated 295 (280-300); Potassium 4.4 mEq/L (3.5-4.5); Sodium 139 mEq/L (136-145); Total Protein 7.6 g/dL (6.0-8.3); eGFR For African Americans > 60 (> 60); eGFR For Non-African Americans > 60 (> 60)
[2017-01-29] MEDS ORDERED: Ondansetron 4 MG/2 ML VIAL IVP ONE (07:43)
[2017-01-29] MEDS ORDERED: *HR* Morphine 2 MG/ML SYRINGE IVP ONE ×2 (07:43→10:34)
[2017-01-29] MEDS ORDERED: 0.9 % Sodium Chloride 1,000 ML IVC ONE (07:43)
[2017-01-29] MEDS ORDERED: Ondansetron 4 MG/2 ML VIAL IVP PRN (11:05)
[2017-01-29] MEDS ORDERED: Naloxone 0.4 MG/ML INJ IVP PRN (11:05)
[2017-01-29] MEDS ORDERED: Acetaminophen 325 MG TABLET PO PRN (11:05)
[2017-01-29] MEDS ORDERED: Nitroglycerin 0.4 MG TAB.SUBL SL PRN (11:18)
--- NOTE | 2017-01-29 11:34 | Internal Med History&Physical ---
Date of Encounter: 01/29/17 Time of Encounter: 11:22 Assessment and Plan (1) Chest pain Current visit: No Status: Acute Patient experienced an onset of chest pain which is nonradiating and all of her body numbness. She just recently had a cardiac workup in November which in included a 2 day stress test which were abnormal with findings consistent with recurrent myocardial ischemia. Cardiac catheter was completed which showed no obstructive CAD echo was 55-60% with mild diastolic dysfunction. First cardiac troponin was 0 we will continue to trend Continuous cardiac monitoring Continue with aspirin and statin will obtain lipid profile consult cardiology as needed and have follow up as outpatient Qualifiers: Chest pain type: precordial pain Qualified Code(s): R07.2 - Precordial pain (2) Insulin dependent diabetes mellitus Current visit: No Status: Chronic diabetic diet accucheck Ac/HS (3) Cystitis Current visit: No Status: Acute Has been experiencing hematuria for approx month- has not seen urologist rodrigues hx of uterine CA. We will consult urology I did speak with Dr Mojica who will see patient will continue with Rocephin (4) Abdominal pain Current visit: No Status: Acute complaining of R lower abd pain which has been on going for approx month. Has hx of uterine cancer s/p hysterectomy CT of abd negative lab work negative GI consulted per Dr Fernando Qualifiers: Abdominal location: unspecified location Qualified Code(s): R10.9 - Unspecified abdominal pain (5) DVT prophylaxis Current visit: No Status: Acute MEGA [place]- hematuria Internal Medicine - H&P: HPI Chief complaint: CP Admitted From: Emergency Dept Plans for Post Hospital Care: Home History of present illness: Ms. Lawson is a 46 year old female past medical history of diabetes uterine cancer 2015 with hysterectomy PE 2016 by the liver anxiety. The patient was seen in the ER last night initially for complaints of lower abdominal pain and hematuria. Apparently she was seen in December for a same complaint and had not followed up with her primary care physician Urinalysis was performed which did show hematuria she was given Rocephin and a prescription for Keflex and urology referral however she did eloped prior to his evening prescription and discharge paperwork. She presented back to the ER approximately 2 hours later complaining of midsternal chest pressure which began approximately an hour prior to arrival. She described the pain as someone sitting on her chest as well as tingling all over her body. She rated the pressure 8 out of 10. She had associated symptoms of nausea with an episode of emesis and shortness of breath which she states she used her inhaler. She denies any diaphoresis. There were no aggravating factors, she was given 2 nitroglycerin as well as morphine in the ER which she states the morphine is what relieved her pain. She does admit to experiencing right lower abdominal pain difficulty urinating dysuria hematuria low-grade temperatures seeing 100 degrees at home. She presented to the ER with the above complaints. Lab work was obtained and was unremarkable CT of abdomen was obtained which was negative for any abnormalities. She has been admitted for further workup and evaluation. Presently the patient denies any chest pressure however continues to complain of lower quadrant abdominal pain which she states is relieved with morphine. I did review this case with Dr. Fernando who agrees with plan Past Med Surg Social Fam HX - Past Medical History Medical history: arthritis, cancer, diabetes, pulmonary embolus, sudden cardiac , other Psychiatric history: no psych history - Past Surgical History Surgical History: cholecystectomy, herniorrhaphy, hysterectomy, other - Social History Smoking Status: Never smoker Smokeless Tobacco Status: No Alcohol use: none Drug use: none - Family History Mother Living Status: Still Living Hx Family Cardiac Disorders: Yes (CHF) Hx Family Respiratory Disorders: No Hx Family Cancer: No Hx Family GI Disorders: No Hx Family Endocrine Disorder: Yes (THYROID DX) Hx Family Neuromuscular Disorders: No Hx Family Neurologic Disorders: No Hx Family HEENT Disorders: No Hx Family Autoimmune Disorders: No Internal Medicine - H&P: Meds Gabapentin [Neurontin] 600 mg PO TID 01/04/15 [History] Insulin Glargine,Hum.rec.anlog [Toujeo Solostar] 50 units SQ QPM #0 04/29/15 [ History] Omeprazole [PriLOSEC] 40 mg PO DAILY 11/03/15 [History] Cholecalciferol (D-3) [Vitamin D] 1,000 unit PO DAILY 04/19/16 [History] Cyanocobalamin (Vitamin B-12) [Vitamin B12] 1,000 mcg PO DAILY 11/30/16 [History ] Dicyclomine [Bentyl] 10 mg PO QID PRN 11/30/16 [History] Diflunisal 500 mg PO Q12H 11/30/16 [History] Aspirin [Lo-Dose Aspirin EC] 81 mg PO DAILY 01/29/17 [History] HYDROcodone/Acet 5/325 mg [[place] 5-325 mg] 1 tab PO Q4H PRN 01/29/17 [History] Ondansetron ODT [Zofran ODT] 4 mg SL Q6HR PRN #15 tab.rapdis 01/29/17 [Rx] 3 Allergy/AdvReac Type Severity Reaction Status Date / Time ibuprofen [From Motrin] AdvReac Gastrointestinal Verified 01/29/17 06:36 Upset NSAIDS (Non-Steroidal AdvReac Gastrointestinal Verified 01/29/17 06:36 Anti-Inflamma Upset All Systems PM: A 10-system review of systems was performed and is negative for pertinent findings except as documented above in the HPI. - Constitutional Constitutional: fever(s) - EENT Eyes: no change in vision, no discharge, no pain, no photophobia Nose, mouth and throat: no dysphagia, no nasal discharge, no neck pain, no sore throat - Cardiovascular Cardiovascular ROS IM: chest pain, dyspnea, no diaphoresis, no lightheadedness, no palpitations, no syncope - Respiratory Respiratory: no cough, no dyspnea, no wheezing, no excessive phlegm production - Gastrointestinal Gastrointestinal: abdominal pain, nausea, vomiting - Genitourinary Genitourinary: difficulty voiding, dysuria, hematuria, urinary frequency, no change in urinary stream, no flank pain - Musculoskeletal Musculoskeletal ROS IM: no numbness, no tingling - Integumentary Integumentary IM: no rash, no unusual bruising - Constitutional Vitals: Temp Pulse Resp BP Pulse Ox 98.8 F 80 22 116/87 97 01/29/17 06:37 01/29/17 10:55 01/29/17 10:55 01/29/17 10:55 01/29/17 10:55 General appearance: Present: A&O X 3 - Head Head exam: Present: atraumatic, normocephalic - Eye Eye exam: Present: PERRL, conjuntiva pink, sclera anicteric Pupils: Present: PERRL - Neck Neck exam general surgery: Present: supple, trachea midline. Absent: lymphadenopathy - Respiratory Respiratory exam: Present: CTAB. Absent: accessory muscle use, rales, rhonchi, wheezes - Cardiovascular Cardiovascular exam: Present: RRR, +S1, +S2. Absent: diastolic murmur, gallop, rubs, systolic murmur - GI/Abdominal GI/Abdominal exam: Present: normal bowel sounds, soft, tenderness, no peritoneal signs. Absent: distended - Extremities Exam Extremities exam: Present: warm, radial pulses palpable and symmetrical. Absent : calf tenderness, cyanotic, pedal edema - Neurological Exam Neurological exam: Present: CN II-XII intact, oriented X3, no focal deficits. Absent: pronater drift, facial droop, speech deficit - Skin Skin exam: Present: dry, intact Internal Med - H&P Results - Labs CBC & Chem 7: 01/29/17 07:03 01/29/17 07:03 - EKG Data EKG shows normal: sinus rhythm - Diagnostic Studies Other Images Additional comments: Chest X-Ray 01/29/17 06:45 IMPRESSION: No acute cardiopulmonary pathology. D/ / Olvin Moreira MD / Olvin Moreira MD Interpreting Provider: Olvin Moreira MD Abdomen/Pelvis CT 01/29/17 07:43 IMPRESSION: Negative CT examination of the abdomen pelvis with no evidence for acute process including normal appearing appendix. Few incidental/chronic findings as described including hepatic fatty infiltration. D/ / Darlene River MD / Darlene River MD Interpreting Provider: Darlene River MD
[2017-01-29] MEDS ORDERED: *HR* Dextrose 50 % in Water (Syg) 50 ML SYRINGE IVP PRN (12:08)
[2017-01-29] MEDS ORDERED: Dextrose Gel 15 GM PO PRN ×2 (12:08)
[2017-01-29] MEDS ORDERED: D5% in Water 1,000 ML IVC PRN (12:08)
--- NOTE | 2017-01-29 12:30 | Event Note ---
Date of Encounter: 01/29/17 Time of Encounter: 12:21 46/female Background history of a multiple comorbid conditions. Patient was hospitalized here in a month of November and underwent extensive cardiac workup including cardiac catheterization which was negative for any coronary artery disease. Patient came to emergency room last night for hematuria. Apparently patient eloped from the emergency room after she received her antibiotics. Patient came back to the hospital for chest pain and less than 2 hours. She was evaluated in the emergency room and basic workup was done. In view of the hematuria, patient underwent CT abdomen and pelvis which was negative for any gross pathology. Patient was hospitalized for chest pain to rule out ACS in spite of negative workup for following reasons. #1. The possibility of the chest pain is likely secondary to the reflux disease. There is a high possibility to support this is as patient has a BMI off 42 and she is has symptoms suggestive of classic reflux disease. We will get opinion from gastroenterology for further evaluation. #2 the patient has persistent hematuria and she has a history of previously genitourinary malignancy. In view of her multiple noncompliant with appointments as a follow-up for cardiology it is necessary to admit this patient and workup for the hematuria. We will get opinion from the urology for further evaluation. Plan: Admit as observation. Cycle troponin. As mentioned, GI/urology evaluation. I have examined this patient in the emergency room #10 along with MELANIE Srinivasan Patient promised me that she is going to stay in the hospital and she will not eloped.
[2017-01-29] MEDS: Gabapentin 300 MG CAPSULE PO SCH ×2 (14:56→21:21)
[2017-01-29] MEDS ORDERED: GI Cocktail 40 ML EACH PO ONE (15:46)
--- NOTE | 2017-01-29 17:21 | Urology - Consult Note ---
Date of Encounter: 01/29/17 Time of Encounter: 17:19 - Assessment and Plan (1) Hematuria Current Visit: Yes Status: Acute Assessment and plan: 46-year-old woman status post total hysterectomy for cervical cancer with lymph node positivity. She is also status post chemotherapy and radiotherapy. She now has gross hematuria. I don't have any recent urine cultures on her. This is potentially concerning for radiation cystitis. I will have the nurse obtain a urine sample and to collect serial urines. I will start IV fluids to improve her urine output. If her urine is grossly bloody, we may need to place a catheter and initiate continuous bladder irrigation. I would recommend cystoscopy as an outpatient for urine clears, or we may need to consider operative intervention if the hematuria persists. Qualifiers: Hematuria type: gross Qualified Code(s): R31.0 - Gross hematuria Urology CN:HPI Consult date: 01/29/17 Reason for consult Urology: Gross Hematuria History of present illness: 46-year-old woman presents with concern for abdominal pain and gross hematuria. She says the hematuria has been going on for some time, approximately 1 month. She describes the urine is being fruit punch color. She has a history of cervical cancer. She is status post hysterectomy with lymph node positivity and chemotherapy/radiotherapy. She is having some burning with urination. She had a CT scan which showed no concerning renal lesions. She has a long-standing history of pain medication use. Past Med Surg Social Fam HX - Past Medical History Medical history: arthritis, cancer, diabetes, pulmonary embolus, sudden cardiac , other Psychiatric history: no psych history - Past Surgical History Surgical History: cholecystectomy, herniorrhaphy, hysterectomy, other - Social History Smoking Status: Never smoker Smokeless Tobacco Status: No Alcohol use: none Drug use: none - Family History Mother Living Status: Still Living Hx Family Cardiac Disorders: Yes (CHF) Hx Family Respiratory Disorders: No Hx Family Cancer: No Hx Family GI Disorders: No Hx Family Endocrine Disorder: Yes (THYROID DX) Hx Family Neuromuscular Disorders: No Hx Family Neurologic Disorders: No Hx Family HEENT Disorders: No Hx Family Autoimmune Disorders: No Medications and Allergies Gabapentin [Neurontin] 600 mg PO TID 01/04/15 [History] Insulin Glargine,Hum.rec.anlog [[place] Solostar] 50 units SQ QPM #0 04/29/15 [ History] Omeprazole [PriLOSEC] 40 mg PO DAILY 11/03/15 [History] Cholecalciferol (D-3) [Vitamin D] 1,000 unit PO DAILY 04/19/16 [History] Cyanocobalamin (Vitamin B-12) [Vitamin B12] 1,000 mcg PO DAILY 11/30/16 [History ] Dicyclomine [Bentyl] 10 mg PO QID PRN 11/30/16 [History] Diflunisal 500 mg PO Q12H 11/30/16 [History] Aspirin [Lo-Dose Aspirin EC] 81 mg PO DAILY 01/29/17 [History] HYDROcodone/Acet 5/325 mg [[place] 5-325 mg] 1 tab PO Q4H PRN 01/29/17 [History] Ondansetron ODT [Zofran ODT] 4 mg SL Q6HR PRN #15 tab.rapdis 01/29/17 [Rx] 3 Allergy/AdvReac Type Severity Reaction Status Date / Time ibuprofen [From Motrin] AdvReac Gastrointestinal Verified 01/29/17 06:36 Upset NSAIDS (Non-Steroidal AdvReac Gastrointestinal Verified 01/29/17 06:36 Anti-Inflamma Upset Review of Systems - Constitutional no chills, no fever(s) - EENT Nose, mouth and throat: no dizziness - Cardiovascular no chest pain - Respiratory no dyspnea - Gastrointestinal abdominal pain, no nausea, no vomiting - Genitourinary Genitourinary: hematuria, no flank pain - Musculoskeletal no back pain - Integumentary no erythema, no rash - Neurological no weakness - Psychiatric no suicidal ideation - Hematologic/Lymphatic no easy bleeding - Allergic/Immunologic no wheezing Exam Initial Vital Signs Temp Pulse Resp BP Pulse Ox 98.8 F 79 16 138/85 98 01/29/17 06:37 01/29/17 06:37 01/29/17 06:37 01/29/17 06:37 01/29/17 06:37 - General physical appearance Present: well developed, well nourished, no distress - Eyes Absent: icteric - ENT Present: normal nares - Neck Present: trachea midline - Respiratory Present: normal respiratory effort - Cardiovascular Cardiovascular exam IM: RRR - Abdomen Abdomen: Present: soft Urology Results - Labs 01/29/17 07:03 01/29/17 07:03 Abnormal lab results Glucose 178 mg/dL (70-99) H 01/29/17 07:03 Globulin 4.1 g/dL (2.4-3.5) H 01/29/17 07:03 Albumin/Globulin Ratio 0.9 (1.1-2.2) L 01/29/17 07:03 All other labs normal. - Imaging CT scan - abdomen: report reviewed, image reviewed CT scan - pelvis: report reviewed, image reviewed Consult Discharge Plan - Plan Referrals: Remedios Marshall CNP [Primary Care Provider] -
[2017-01-29] MEDS: Insulin LISPRO 300 UNITS/3 ML VIAL SQ SCH ×2 (17:24→21:17)
[2017-01-29] MEDS: 0.9 % Sodium Chloride 1,000 ML IVC SCH (17:36)
[2017-01-29] MEDS: *HR* HYDROcodone/Acet 5/325 mg TABLET PO PRN (19:51)
[2017-01-30] MEDS: 0.9 % Sodium Chloride 1,000 ML IVC SCH ×2 (04:05→16:42)
[2017-01-30 05:18] LABS: Basophils % 0.6 %; Eosinophils # 0.2 K/mcL (0.0-0.6); Eosinophils % 4.7 %; Hematocrit 36.3 % (35.3-44.9); Hemoglobin 11.7 g/dL (11.5-15.4); Immature Granulocytes % 0.2 % (0-4); Lymphocytes # 1.2 K/mcL (0.6-4.6); Lymphocytes % 24.1 %; Mean Corpuscular HGB Conc 32.2 g/dL (31.6-35.5); Mean Corpuscular Hemoglobin 28.5 pg (28.0-33.3); Mean Corpuscular Volume 88.5 fL (83.0-100.0); Mean Platelet Volume 9.6 fL (9.4-12.4); Monocytes # 0.5 K/mcL (0.0-1.3); Monocytes % 10.3 %; Neutrophils # 2.9 K/mcL (1.6-8.9); Platelet Count 310 K/mcL (140-400); Segmented Neutrophils % 60.1 %
[2017-01-30 05:31] LABS: BUN/Creatinine Ratio 29 (6-26); Blood Urea Nitrogen 17 mg/dL (6-20); Calcium 8.9 mg/dL (8.6-10.3); Carbon Dioxide 26 mEq/L (23-29); Chloride 109 mEq/L (98-107); Chol/HDL Ratio 4.9 (0-4.9); Cholesterol 181 mg/dL (< 200); Glucose 136 mg/dL (70-105); HDL Cholesterol 37 mg/dL (40-59); LDL Cholesterol,Calculated 95 mg/dL (0-99); Magnesium 2.1 mg/dL (1.6-2.6); Osmolality,Calculated 294 (280-300); Potassium 4.7 mEq/L (3.5-5.1); Sodium 140 mEq/L (136-145); Triglycerides 245 mg/dL (< 150); eGFR For African Americans > 60 (> 60); eGFR For Non-African Americans > 60 (> 60)
[2017-01-30] MEDS: Insulin LISPRO 300 UNITS/3 ML VIAL SQ SCH ×4 (08:05→20:03)
--- NOTE | 2017-01-30 08:52 | Urology Progress Note ---
Date of Encounter: 01/30/17 Time of Encounter: 08:51 - Assessment and Plan (1) Hematuria Current Visit: Yes Status: Acute Assessment and plan: 46 year old female with gross hematuria. Urine is clearing. Will monitor. She can follow up as an outpatient for a cystoscopy. Qualifiers: Hematuria type: gross Qualified Code(s): R31.0 - Gross hematuria Progress Note Narrative: She is doing well today. Her urine is clearing. Objective Initial Vital Signs Temp Pulse Resp BP Pulse Ox 98.8 F 79 16 138/85 98 01/29/17 06:37 01/29/17 06:37 01/29/17 06:37 01/29/17 06:37 01/29/17 06:37 - General physical appearance Present: well developed, well nourished, no distress - Respiratory Present: normal respiratory effort - Abdomen Present: soft - Labs 01/30/17 04:57 01/30/17 04:57 Diabetes panel 01/30/17 Range/Units 04:57 Sodium 140 (136-145) mEq/L Potassium 4.7 (3.5-5.1) mEq/L Chloride 109 H (98-107) mEq/L Carbon Dioxide 26 (23-29) mEq/L BUN 17 (6-20) mg/dL Creatinine 0.58 L (0.60-1.20) mg/dL Glucose 136 H (70-105) mg/dL Calcium 8.9 (8.6-10.3) mg/dL Triglycerides 245 H (< 150) mg/dL HDL Cholesterol 37 L (40-59) mg/dL Calcium panel 01/30/17 Range/Units 04:57 Calcium 8.9 (8.6-10.3) mg/dL Pituitary panel 01/30/17 Range/Units 04:57 Sodium 140 (136-145) mEq/L Potassium 4.7 (3.5-5.1) mEq/L Chloride 109 H (98-107) mEq/L Carbon Dioxide 26 (23-29) mEq/L BUN 17 (6-20) mg/dL Creatinine 0.58 L (0.60-1.20) mg/dL Glucose 136 H (70-105) mg/dL Calcium 8.9 (8.6-10.3) mg/dL Adrenal panel 01/30/17 Range/Units 04:57 Sodium 140 (136-145) mEq/L Potassium 4.7 (3.5-5.1) mEq/L Chloride 109 H (98-107) mEq/L Carbon Dioxide 26 (23-29) mEq/L BUN 17 (6-20) mg/dL Creatinine 0.58 L (0.60-1.20) mg/dL Glucose 136 H (70-105) mg/dL Calcium 8.9 (8.6-10.3) mg/dL Consult Discharge Plan - Plan Referrals: Remedios Marshall CNP [Primary Care Provider] -
[2017-01-30] MEDS: Gabapentin 300 MG CAPSULE PO SCH ×3 (09:24→20:21)
[2017-01-30] MEDS: Cyanocobalamin (B-12) 1,000 MCG TABLET PO SCH (09:24)
[2017-01-30] MEDS: *HR* HYDROcodone/Acet 5/325 mg TABLET PO PRN ×3 (09:24→20:21)
[2017-01-30] MEDS: cefTRIAXone 1,000 MG in Water for inj. (sterile) 10 ML IVP SCH (09:24)
[2017-01-30] MEDS: Cholecalciferol (D-3) 1,000 UNIT TABLET PO SCH (09:25)
[2017-01-30] MEDS: Aspirin Enteric Coated 81 MG Tablet PO SCH (09:25)
--- NOTE | 2017-01-30 11:20 | Anesthesia Evaluation PreOp ---
Date of Encounter: 01/30/17 Time of Encounter: 13:11 - Past History Planned Operation: EGD Cardiac History: Angina (non- obstructive CAD, neg. troponins this visit) Pulmonary History: Other (hx PE) Other Medical History: Diabetes Type I, Other (cancer) Anesthesia History: No Prior Anesthetic Complications, Past Anesthesia (ADOLFO, Hernia, sudha) : No Alcohol Use: none Drug use: none Medications and Allergies Gabapentin [Neurontin] 600 mg PO TID 01/04/15 [History] Insulin Glargine,Hum.rec.anlog [Toujeo Solostar] 50 units SQ QPM #0 04/29/15 [ History] Omeprazole [PriLOSEC] 40 mg PO DAILY 11/03/15 [History] Cholecalciferol (D-3) [Vitamin D] 1,000 unit PO DAILY 04/19/16 [History] Cyanocobalamin (Vitamin B-12) [Vitamin B12] 1,000 mcg PO DAILY 11/30/16 [History ] Dicyclomine [Bentyl] 10 mg PO QID PRN 11/30/16 [History] Diflunisal 500 mg PO Q12H 11/30/16 [History] Aspirin [Lo-Dose Aspirin EC] 81 mg PO DAILY 01/29/17 [History] HYDROcodone/Acet 5/325 mg [[place] 5-325 mg] 1 tab PO Q4H PRN 01/29/17 [History] Ondansetron ODT [Zofran ODT] 4 mg SL Q6HR PRN #15 tab.rapdis 01/29/17 [Rx] 3 Allergy/AdvReac Type Severity Reaction Status Date / Time ibuprofen [From Motrin] AdvReac Gastrointestinal Verified 01/29/17 06:36 Upset NSAIDS (Non-Steroidal AdvReac Gastrointestinal Verified 01/29/17 06:36 Anti-Inflamma Upset - Meds/Allergy Pre-op Review Medications Reviewed: Yes Allergies Reviewed: Yes Beta Blockers on Current Med List: No Anesthesia Results - Labs 01/30/17 04:57 01/30/17 04:57 - Imaging Additional studies: Cath 11/27: mpressions: Coronary arteries are angiographically normal with small mid distal LAD that may represent diffuse negative remodeling in a diabetic patient The left ventricle has normal contractility EF 60% Anesthesia Exam Selected Entries 01/30/17 10:32 Temperature 97.4 F L Pulse Rate 65 Respiratory Rate 16 Blood Pressure 113/85 O2 Sat by Pulse Oximetry 95 Weight: 121kg - HEENT Pupil (Motor): EOMI Mallampati: III Teeth: Missing, Poor dentition Oral Opening: Less than or equal to 3 - DONOR RELATIONS OFFICER LOC: Oriented DONOR RELATIONS OFFICER Motor: Normal RUE, Normal LUE, Normal RLE, Normal LLE, Normal Face DONOR RELATIONS OFFICER Sensory: Normal: RUE, LUE, RLE, LLE, Face - Cardiac Rhythm: Regular Murmur: None - Pulmonary Breath Sounds: bilateral Clear Respiratory Effort: Symmetrical Anesthesia Assess/Plan ASA Score: 3 Modified [place] Scale for Level of Consciousness: Cooperative, oriented, and tranquil Anesthetic Plan: MAC Monitoring Plan: Standard Monitors Recovery Plan: Other (agrees to MAC)
--- NOTE | 2017-01-30 12:10 | Gastroenterology Consult Note ---
<Apple Mcgee - Last Filed: 01/30/17 12:06> Date of Encounter: 01/30/17 Time of Encounter: 10:45 - Assessment and plan (1) Hematemesis Current Visit: No Status: Acute Assessment and plan: Pt complains of streaky bright red hematemesis and epigastric/chest pain. Cardiac workup negative will proceed with EGD to rule out esophagitis/gastritis/ PUD or other causes of chest pain. CT abdomen showed fatty liver with no acute process to explain pain. Continue PPI. Qualifiers: Nausea presence: with nausea Qualified Code(s): K92.0 - Hematemesis (2) Abdominal pain Current Visit: No Status: Acute Qualifiers: Abdominal location: unspecified location Qualified Code(s): R10.9 - Unspecified abdominal pain (3) Chest pain Current Visit: No Status: Acute Qualifiers: Chest pain type: precordial pain Qualified Code(s): R07.2 - Precordial pain (4) Hepatic steatosis Current Visit: Yes Status: Acute Assessment and plan: LFTS WNL, weight loss advisable. - Time Spent With Patient Total time spent is greater than 50% in coordination of care (as documented) at patient's floor/unit and/or counseling patient: GI History of Present Illness - Data of Consult Patient: known to practice within the last 3 years Consult date: 01/30/17 Requesting Physician: Maria Luisa Arteaga CNP - Consult Narrative Reason for consult: chest pain History of present illness: Ms. Lawson is a 46 year old female with a pmhx of diabetes, uterine cancer 2015 s/p hysterectomy, chemo and XRT, PE 201, fatty liver, and anxiety. She presented to ER with complaints of lower abdominal pain and hematuria. She was discharged home and presented back to ER 2 hours later complaining of midsternal chest pressure which began approximately an hour prior to arrival. She described the pain as someone sitting on her chest as well as tingling all over her body. She rated the pressure 8 out of 10. She had associated symptoms of nausea with an episode of emesis and shortness of breath.There were no aggravating factors, she was given 2 nitroglycerin as well as morphine in the ER which she states the morphine is what relieved her pain. Cardiac workup was negative. She reports 1 month history of right lower abdominal pain difficulty urinating dysuria hematuria low-grade temperatures seeing 100 degrees at home. She was recently treated for UTI. She reports some streaky, bright red hematemesis. She complains of diarrhea but denies bloody or tarry stool. CT abdomen showed fatty liver and no acute process. Labs show a white blood cell count 4.9 hemoglobin 11.7 platelet count 310 INR 1.0 sodium 140 potassium 4.7 creatinine 0.58, total bilirubin 0.4 AST 18 ALT 24 troponin I was negative at 0.03 amylase 52 lipase 15. Colonoscopy: [facility] 2015 polyp EGD: 04/26 wnl NSAIDS/ASA: asa 81 mg, naproxen Anticoagulants: denies Past Med Surg Social Fam HX - Past Medical History Medical history: arthritis, cancer, diabetes, pulmonary embolus, sudden cardiac , other Psychiatric history: no psych history - Past Surgical History Surgical History: cholecystectomy, herniorrhaphy, hysterectomy, other - Social History Smoking Status: Never smoker Smokeless Tobacco Status: No Alcohol use: none Drug use: none - Family History Mother Living Status: Still Living Hx Family Cardiac Disorders: Yes (CHF) Hx Family Respiratory Disorders: No Hx Family Cancer: No Hx Family GI Disorders: No Hx Family Endocrine Disorder: Yes (THYROID DX) Hx Family Neuromuscular Disorders: No Hx Family Neurologic Disorders: No Hx Family HEENT Disorders: No Hx Family Autoimmune Disorders: No Review of Systems: GI: as per [facility]: fever and chills EYES: denies yellow discoloration ENT: denies pain with swallowing or difficulty swallowing CARDIO: see HPI RESP: No Shortness of breath with exertion : see HPI NEURO: denies any weakness HEME: Denies any bruising MS: chronic joint and back pain. DERM: denies rash or itching PSYCH: history of anxiety and depression - Constitutional Vitals: Temp Pulse Resp BP Pulse Ox 97.4 F L 65 16 113/85 95 01/30/17 10:32 01/30/17 10:32 01/30/17 10:32 01/30/17 10:32 01/30/17 10:32 Exam: CONSTITUTIONAL:~alert, no acute distress.~HEAD:~normocephalic.~EYES:~no jaundice.~NECK:~no obvious swelling.~HEART:~regular rate and rhythm, no murmurs. ~LUNGS:~bilateral good air entry.~ABDOMEN:~obese, non distended, soft, tender epigastric and RUQ, scars well healed, no masses pulpable, no organomegaly.~ RECTAL EXAM:~Deferred.~EXTREMITIES:~no clubbing, cyanosis or edema.~SKIN:~no stigmata of chronic liver disease.~NEUROLOGIC:~no obvious focal defect.~~~~ Results - Labs CBC & Chem 7: 01/30/17 04:57 01/30/17 04:57 Labs: Last Result Calcium 8.9 mg/dL (8.6-10.3) 01/30/17 04:57 Troponin I < 0.03 ng/mL (< 0.04) 01/29/17 21:49 Triglycerides 245 mg/dL (< 150) H 01/30/17 04:57 Entire Visit Hgb 11.7 g/dL (11.5-15.4) D 01/30/17 04:57 Hct 36.3 % (35.3-44.9) 01/30/17 04:57 PT 10.6 Seconds (9.4-12.1) 01/29/17 07:03 Total Bilirubin 0.4 mg/dL (0.2-1.2) 01/29/17 07:03 AST 18 Units/L (5-34) 01/29/17 07:03 ALT 24 Units/L (0-55) 01/29/17 07:03 Amylase 52 Units/L (25-125) 01/29/17 07:03 Lipase 15 Units/L (8-78) 01/29/17 07:03 - ABG ABG results: PT/INR, D-dimer PT 10.6 Seconds (9.4-12.1) 01/29/17 07:03 Consult Discharge Plan - Plan Referrals: Remedios Marshall CNP [Primary Care Provider] - 02/07/17 2:00 pm <Gisselle Cotter - Last Filed: 01/30/17 13:56> Date of Encounter: 01/30/17 Time of Encounter: 13:00 - Time Spent With Patient Total time spent is greater than 50% in coordination of care (as documented) at patient's floor/unit and/or counseling patient: GI History of Present Illness - Data of Consult Requesting Physician: Maria Luisa Arteaga CNP - Consult Narrative History of present illness: Ms. Lawson is a 46 year old female - Constitutional Vitals: Temp Pulse Resp BP Pulse Ox 97.4 F L 72 16 125/68 96 01/30/17 13:15 01/30/17 13:15 01/30/17 13:15 01/30/17 13:15 01/30/17 13:15 Results - Labs CBC & Chem 7: 01/30/17 04:57 01/30/17 04:57 Labs: Last Result Calcium 8.9 mg/dL (8.6-10.3) 01/30/17 04:57 Troponin I < 0.03 ng/mL (< 0.04) 01/29/17 21:49 Triglycerides 245 mg/dL (< 150) H 01/30/17 04:57 Entire Visit Hgb 11.7 g/dL (11.5-15.4) D 01/30/17 04:57 Hct 36.3 % (35.3-44.9) 01/30/17 04:57 PT 10.6 Seconds (9.4-12.1) 01/29/17 07:03 Total Bilirubin 0.4 mg/dL (0.2-1.2) 01/29/17 07:03 AST 18 Units/L (5-34) 01/29/17 07:03 ALT 24 Units/L (0-55) 01/29/17 07:03 Amylase 52 Units/L (25-125) 01/29/17 07:03 Lipase 15 Units/L (8-78) 01/29/17 07:03 - ABG ABG results: PT/INR, D-dimer PT 10.6 Seconds (9.4-12.1) 01/29/17 07:03 - Attending Attestation I examined this patient and my medical decision-making was reviewed with the Resident Physician. I agree with the documented findings, disposition and treatment plan as described except to the extent set forth below. Patient 46-year-old female with a history of cervical cancer status post total hysterectomy. She also radiation therapy in 2014 now for the last 1 month she is having right-sided lower abdominal pain and diarrhea for the last 1 week. She was admitted this time because with epigastric and lower chest pain cardiac workup has been negative. Recommendation EGD to rule out gastric/esophageal causes for her abdominal pain if the EGD do not explain her abdominal pain then she will need a colonoscopy her CT scan is unremarkable
--- NOTE | 2017-01-30 12:23 | Electrocardiograph Report ---
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
[2017-01-30] MEDS ORDERED: 0.9 % Sodium Chloride 1,000 ML IVC SCH (13:30)
[2017-01-30] MEDS ORDERED: SODIUM CHLORIDE/NAHCO3/KCL/PEG 4,000 ML SOLN.RECON PO ONE (13:56)
--- NOTE | 2017-01-30 17:08 | Internal Med Progress Note ---
Date of Encounter: 01/30/17 Time of Encounter: 08:40 - Assessment and plan (1) Precordial chest pain Current Visit: No Status: Acute Assessment and plan: Patient experienced an onset of chest pain which is nonradiating and all of her body numbness. She just recently had a cardiac workup in November which in included a 2 day stress test which were abnormal with findings consistent with recurrent myocardial ischemia. Cardiac catheter was completed which showed no obstructive CAD, echo was 55-60% with mild diastolic dysfunction. Troponins were negative 3. EKG was normal sinus rhythm with nonspecific ST changes. Rate is 84, NH interval 140, QRS [id number] Continuous cardiac monitoring Continue with aspirin and statin will obtain lipid profile Will repeat limited echo. (2) Morbid obesity with BMI of 40.0-44.9, adult Current Visit: Yes Status: Acute Assessment and plan: chronic. Lifestyle change. (3) Abdominal pain of unknown etiology Current Visit: Yes Status: Acute Assessment and plan: Patient presented to the emergency department with right lower abdominal pain, onset one month. Prior history of uterine cancer status post hysterectomy. CT of abdomen was negative. Labs are negative. GI consultation has been completed. Per GI consultation note, patient reported streaky, bright red hematemesis and epigastric/chest pain. EGD was completed today. It was negative. Patient have colonoscopy tomorrow. Keep patient nothing by mouth, continue prep. (4) Hematuria Current Visit: Yes Status: Acute Assessment and plan: Patient has been evaluated by urology. She is status post total hysterectomy for cervical cancer. She is also status post chemotherapy and radiation. Patient reported with gross hematuria. Urology was concerned about potential radiation cystitis. IV fluids were started to increase urine output. Patient denies pain. Urine cleared after IV fluids. Urology recommends following up for cystoscopy and an outpatient basis. Patient is being treated for urinary tract infection, urine was red and turbid specific gravity greater than 1.03, small leukocyte esterase and no bacteria, few squamous cells. Culture was indicated and pending. Qualifiers: Hematuria type: gross Qualified Code(s): R31.0 - Gross hematuria (5) DVT prophylaxis Current Visit: No Status: Acute Assessment and plan: SCDs. No pharmacologic intervention due to hematuria. - Time Spent With Patient less than 15 minutes - Subjective Interval history: Patient was seen and assessed at 8:40 AM. She reports abdominal pain, she mostly attributes this to her urinary tract infection. She said that she eloped from the emergency department prior to finishing treatment. She stated she returned with left chest pain and numbness all over. On examination this morning she reported 6/10 left chest pain, describes it as dull with radiation to her back. No nausea or vomiting, no diaphoresis no shortness of breath. Her lungs are clear, the pain is not reproducible. She is in no respiratory distress or any distress at all for that matter. - Constitutional Vitals: Temp Pulse Resp BP Pulse Ox 97.3 F L 77 18 133/82 96 01/30/17 15:14 01/30/17 15:14 01/30/17 15:14 01/30/17 15:14 01/30/17 15:14 General appearance: Present: cooperative, A&O X 3, morbidly obese, pleasant, no acute distress, answers questions appropriately - Head Head exam: Present: atraumatic, normal inspection, normocephalic - Eye Eye exam: Present: normal appearance, conjuntiva pink, sclera anicteric - Neck Neck exam general surgery: Present: supple, trachea midline. Absent: lymphadenopathy, tenderness - Respiratory Respiratory exam: Present: CTAB. Absent: accessory muscle use, rales, rhonchi, wheezes - Cardiovascular Cardiovascular exam: Present: RRR, +S1, +S2. Absent: diastolic murmur, gallop, rubs, systolic murmur - GI/Abdominal GI/Abdominal exam: Present: normal bowel sounds, soft. Absent: distended, hepatomegaly, tenderness - Extremities Exam Extremities exam: Present: normal inspection, warm, radial pulses palpable and symmetrical. Absent: calf tenderness, cyanotic, pedal edema, tenderness - Neurological Exam Neurological exam: Present: CN II-XII intact, oriented X3, no focal deficits. Absent: facial droop, speech deficit - Skin Skin exam: Present: dry, intact, normal color, warm. Absent: rash Internal Medicine: Result - Labs CBC & Chem 7: 01/30/17 04:57 01/30/17 04:57 Labs: Short CBC 01/30/17 Range/Units 04:57 WBC 4.9 (4.3-11.1) K/mcL Hgb 11.7 D (11.5-15.4) g/dL Hct 36.3 (35.3-44.9) % Plt Count 310 (140-400) K/mcL Neutrophils # 2.9 (1.6-8.9) K/mcL BMP 01/30/17 04:57 Sodium 140 Potassium 4.7 Chloride 109 H Carbon Dioxide 26 BUN 17 Creatinine 0.58 L Glucose 136 H Calcium 8.9 Cardiac Enzymes 01/29/17 Range/Units 21:49 Troponin I < 0.03 (< 0.04) ng/mL - ABG Interpretation ABG results: PT/INR, D-dimer PT 10.6 Seconds (9.4-12.1) 01/29/17 07:03 Consult Discharge Plan - Plan Referrals: Remedios Marshall CNP [Primary Care Provider] - 02/07/17 2:00 pm
[2017-01-30] MEDS ORDERED: *HR* Heparin 5,000 UNIT/ML VIAL SQ SCH (18:00)
--- NOTE | 2017-01-30 19:08 | Electrocardiograph Report ---
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
[2017-01-30 20:42] LABS: Adenovirus F 40/41 PCR Not detected (Not detect); Astrovirus PCR Not detected (Not detect); C.difficile Toxin A/B by PCR Not detected (Not detect); Campylobacter by PCR Not detected (Not detect); Cryptosporidium by PCR Not detected (Not detect); Cyclospora cayetanensis PCR Not detected (Not detect); E. coli O157 by PCR Not detected (Not detect); Entamoeba histolytica PCR Not detected (Not detect); Enteroaggregative E.coli(EAEC) Not detected (Not detect); Enteropathogenic E.coli(EPEC) Not detected (Not detect); Enterotoxigenic E.coli (ETEC) Not detected (Not detect); Giardia lamblia PCR Not detected (Not detect); Norovirus GI/GII PCR Not detected (Not detect); Plesiomonas shigelloides PCR Not detected (Not detect); Rotavirus A PCR Not detected (Not detect); Salmonella PCR Not detected (Not detect); Sapovirus PCR Not detected (Not detect); Shig/EnteroinvasiveE coli EIEC Not detected (Not detect); Shigalike tox-prod E coli STEC Not detected (Not detect); Vibrio PCR Not detected (Not detect); Vibrio cholerae PCR Not detected (Not detect); Yersinia enterocolitica PCR Not detected (Not detect)
[2017-01-31] MEDS: *HR* HYDROcodone/Acet 5/325 mg TABLET PO PRN ×2 (03:06→07:50)
[2017-01-31 03:07] LABS: Basophils % 0.3 %; Eosinophils # 0.3 K/mcL (0.0-0.6); Hematocrit 36.3 % (35.3-44.9); Hemoglobin 11.4 g/dL (11.5-15.4); Immature Granulocytes % 0.3 % (0-4); Lymphocytes # 1.2 K/mcL (0.6-4.6); Lymphocytes % 16.8 %; Mean Corpuscular HGB Conc 31.4 g/dL (31.6-35.5); Mean Corpuscular Volume 92.4 fL (83.0-100.0); Mean Platelet Volume 9.6 fL (9.4-12.4); Monocytes # 0.6 K/mcL (0.0-1.3); Monocytes % 8.3 %; Neutrophils # 5.1 K/mcL (1.6-8.9); Platelet Count 294 K/mcL (140-400); Red Blood Count 3.93 M/mcL (3.82-4.97); Red Cell Distribution Width 13.9 % (11.5-14.5); Segmented Neutrophils % 70.3 %
[2017-01-31 03:30] LABS: BUN/Creatinine Ratio 20 (6-26); Blood Urea Nitrogen 11 mg/dL (6-20); Calcium 8.3 mg/dL (8.6-10.3); Carbon Dioxide 25 mEq/L (23-29); Chloride 110 mEq/L (98-107); Glucose 107 mg/dL (70-105); Osmolality,Calculated 298 (280-300); Potassium 3.9 mEq/L (3.5-5.1); Sodium 144 mEq/L (136-145); eGFR For African Americans > 60 (> 60); eGFR For Non-African Americans > 60 (> 60)
[2017-01-31] MEDS: Insulin LISPRO 300 UNITS/3 ML VIAL SQ SCH ×3 (07:43→14:59)
[2017-01-31] MEDS: Cholecalciferol (D-3) 1,000 UNIT TABLET PO SCH (07:51)
[2017-01-31] MEDS: Gabapentin 300 MG CAPSULE PO SCH ×2 (07:51→15:02)
[2017-01-31] MEDS: Cyanocobalamin (B-12) 1,000 MCG TABLET PO SCH (07:51)
[2017-01-31] MEDS: cefTRIAXone 1,000 MG in Water for inj. (sterile) 10 ML IVP SCH (07:51)
[2017-01-31] MEDS: Aspirin Enteric Coated 81 MG Tablet PO SCH (07:51)
--- NOTE | 2017-01-31 12:00 | Anesthesia Evaluation PreOp ---
Date of Encounter: 01/31/17 Time of Encounter: 11:58 - Past History Planned Operation: Colonoscopy Cardiac History: Angina (non- obstructive CAD, neg. troponins this visit) Pulmonary History: Other (PE) [employer] CASE MANAGER History: Denies Any Significant HX Other Medical History: Diabetes Type I, Other (cancer) Anesthesia History: No Prior Anesthetic Complications, Past Anesthesia (ADOLFO, Hernia, sudha) : No (ADOLFO) Alcohol Use: none Drug use: none Medications and Allergies Gabapentin [Neurontin] 600 mg PO TID 01/04/15 [History] Insulin Glargine,Hum.rec.anlog [Toujeo Solostar] 50 units SQ QPM #0 04/29/15 [ History] Omeprazole [PriLOSEC] 40 mg PO DAILY 11/03/15 [History] Cholecalciferol (D-3) [Vitamin D] 1,000 unit PO DAILY 04/19/16 [History] Cyanocobalamin (Vitamin B-12) [Vitamin B12] 1,000 mcg PO DAILY 11/30/16 [History ] Dicyclomine [Bentyl] 10 mg PO QID PRN 11/30/16 [History] Diflunisal 500 mg PO Q12H 11/30/16 [History] Aspirin [Lo-Dose Aspirin EC] 81 mg PO DAILY 01/29/17 [History] HYDROcodone/Acet 5/325 mg [[place] 5-325 mg] 1 tab PO Q4H PRN 01/29/17 [History] Ondansetron ODT [Zofran ODT] 4 mg SL Q6HR PRN #15 tab.rapdis 01/29/17 [Rx] 3 Allergy/AdvReac Type Severity Reaction Status Date / Time ibuprofen [From Motrin] AdvReac Gastrointestinal Verified 01/29/17 06:36 Upset NSAIDS (Non-Steroidal AdvReac Gastrointestinal Verified 01/29/17 06:36 Anti-Inflamma Upset - Meds/Allergy Pre-op Review Medications Reviewed: Yes Allergies Reviewed: Yes Beta Blockers on Current Med List: No Anesthesia Results - Labs 01/31/17 02:57 01/31/17 02:57 Cath 11/27: mpressions: Coronary arteries are angiographically normal with small mid distal LAD that may represent diffuse negative remodeling in a diabetic patient The left ventricle has normal contractility EF 60% ECHO Date of Study: 01/30/2017 EV/EV limited echocardiogram Impressions: LVEF 60%. Normal LV chamber size, wall thickness and function. - Imaging EKG: report reviewed (SR) Anesthesia Exam O2 Sat Height 1.73 m O2 Sat by Pulse Oximetry 96 O2 Sat by Pulse Oximetry 95 O2 Sat by Pulse Oximetry 96 O2 Sat by Pulse Oximetry 96 O2 Sat by Pulse Oximetry 95 O2 Sat by Pulse Oximetry 96 O2 Sat by Pulse Oximetry 96 Vital Signs Temp Pulse Resp BP Pulse Ox 98.8 F 79 16 138/85 98 01/29/17 06:37 01/29/17 06:37 01/29/17 06:37 01/29/17 06:37 01/29/17 06:37 Vital Signs/O2 Sat, Most Current Temp Pulse Resp BP Pulse Ox 98.0 F 71 18 115/70 96 01/31/17 10:45 01/31/17 10:45 01/31/17 10:45 01/31/17 10:45 01/31/17 10:45 Height: 5'8" - HEENT Pupil (Motor): Pupils equal, EOMI Mallampati: III Teeth: Poor dentition Oral Opening: Less than or equal to 3 - [employer] CASE MANAGER LOC: Oriented [employer] CASE MANAGER Motor: Normal RUE, Normal LUE, Normal RLE, Normal LLE, Normal Face [employer] CASE MANAGER Sensory: Normal: RUE, LUE, RLE, LLE, Face - Cardiac Rhythm: Regular Murmur: None JVD: No Carotid Bruit: No - Pulmonary Breath Sounds: bilateral Clear Respiratory Effort: Symmetrical Anesthesia Assess/Plan ASA Score: 3 Modified [place] Scale for Level of Consciousness: Cooperative, oriented, and tranquil Anesthetic Plan: MAC Autologous Blood: Yes Monitoring Plan: Standard Monitors Recovery Plan: Other
[2017-01-31] MEDS ORDERED: *HR* Propofol 200 MG/20 ML VIAL IVP ONE (14:29)
--- NOTE | 2017-01-31 14:38 | Anesthesia Evaluation Post Op ---
Date of Encounter: 01/31/17 Time of Encounter: 14:45 - Vital Signs Vital Signs: Vital Signs/O2 Sat, Most Current Temp Pulse Resp BP Pulse Ox 98.1 F 68 20 137/84 100 01/31/17 14:06 01/31/17 14:06 01/31/17 14:06 01/31/17 14:06 01/31/17 14:06 - Lungs Lungs: Clear Ascult./Percussion - Airway Airway: Non-obstructed - Cardiovascular Regular Rate - Mental Status Mental Status: Alert & Oriented, Answers Appropriately - Pain Pain Scale: 0 Pain Scale used: Numeric (1 - 10) - Nausea Vomiting Nausea Vomiting: Not Present - Hydration Hydration: NPO - Discharge PostOp Status: Transfer Patient to floor (awake, VSS, no anesthetic complications)
--- NOTE | 2017-01-31 15:00 | Discharge Summary ---
Date of Encounter: 01/31/17 Time of Encounter: 11:10 - Discharge Diagnosis (1) Precordial chest pain Priority: Primary Status: Acute Comments: Patient experienced an onset of chest pain which is nonradiating and all of her body numbness. She just recently had a cardiac workup in November which in included a 2 day stress test which were abnormal with findings consistent with recurrent myocardial ischemia. Cardiac catheter was completed which showed no obstructive CAD, echo was 55-60% with mild diastolic dysfunction. Repeat limited echo on 01/30/17 showed preserved EF. Troponins were negative 3. EKG was normal sinus rhythm with nonspecific ST changes. Rate is 84, HI interval 140, QRS [id number] Cholesterol is within normal limits, triglycerides 245, HDL low at 37. Continue aspirin and statin. (2) Morbid obesity with BMI of 40.0-44.9, adult Priority: Secondary Status: Acute Comments: Chronic. Continue home medications. (3) Abdominal pain of unknown etiology Priority: Secondary Status: Acute Comments: Patient presented to the emergency department with right lower abdominal pain, onset one month. Prior history of uterine cancer status post hysterectomy. CT of abdomen was negative. Labs are negative. Per GI consultation note, patient reported streaky, bright red hematemesis and epigastric/chest pain. EGD negative. Patient colonoscopy today., One 2 mm nonbleeding polyp was removed, resected and retrieved. Throughout the entire colon there was normal mucosa was also biopsied. GI recommends repeating colonoscopy in 5 years. Diagnoses from procedure include benign neoplasm of descending colon, and noninfected gastroenteritis and colitis unspecified. (4) Hematuria Priority: Secondary Status: Acute Comments: Patient has been evaluated by urology. She is status post total hysterectomy for cervical cancer. She is also status post chemotherapy and radiation. Patient reported with gross hematuria. Urology was concerned about potential radiation cystitis. IV fluids were started to increase urine output. Patient denies pain. Urine cleared after IV fluids. Urology recommends following up for cystoscopy and an outpatient basis. Patient is being treated for urinary tract infection, urine was red and turbid specific gravity greater than 1.03, small leukocyte esterase and no bacteria, few squamous cells. Culture negative. Follow up with urology as scheduled. Qualifiers: Hematuria type: gross Qualified Code(s): R31.0 - Gross hematuria (5) DVT prophylaxis Priority: Secondary Status: Acute Comments: SCDs (6) Colitis Priority: Secondary Status: Acute Comments: Noninfectious. Most likely source of abdominal pain. - Discharge Medications Home Medications: Gabapentin [Neurontin] 600 mg PO TID 01/04/15 [History] Insulin Glargine,Hum.rec.anlog [Toujeo Solostar] 50 units SQ QPM #0 04/29/15 [ History] Omeprazole [PriLOSEC] 40 mg PO DAILY 11/03/15 [History] Cholecalciferol (D-3) [Vitamin D] 1,000 unit PO DAILY 04/19/16 [History] Cyanocobalamin (Vitamin B-12) [Vitamin B12] 1,000 mcg PO DAILY 11/30/16 [History ] Dicyclomine [Bentyl] 10 mg PO QID PRN 11/30/16 [History] Diflunisal 500 mg PO Q12H 11/30/16 [History] Aspirin [Lo-Dose Aspirin EC] 81 mg PO DAILY 01/29/17 [History] HYDROcodone/Acet 5/325 mg [[place] 5-325 mg] 1 tab PO Q4H PRN 01/29/17 [History] Ondansetron ODT [Zofran ODT] 4 mg SL Q6HR PRN #15 tab.rapdis 01/29/17 [Rx] Allergies/Adverse Reactions: 3 Allergy/AdvReac Type Severity Reaction Status Date / Time ibuprofen [From Motrin] AdvReac Gastrointestinal Verified 01/29/17 06:36 Upset NSAIDS (Non-Steroidal AdvReac Gastrointestinal Verified 01/29/17 06:36 Anti-Inflamma Upset Procedures/tests Complete & Pending: Procedures Performed prior 72 hours Category Date Time Status EKG [ECG 12 lead ECG] [ECG] Routine Y 01/29/17 14:42 Completed EV limited echocardiogram Routine Y 01/30/17 17:13 Completed Date of admission: 01/29/17 10:39 Primary care physician: Remedios Marshall CNP Consults: 01/29/17 12:02 Consult to Urology [CONS] Routine Consulting Provider: Urology [facility] Reason for Consult: hematuria Time Notified: 12:04 Call Completed: Yes 01/29/17 12:22 Consult to Gastroenterology [CONS] Routine Consulting Provider: Gastroenterology [facility] Reason for Consult: abd pain Time Notified: 12:25 Call Completed: Yes Discharging clinician: Mercy Strickland Anticipated date of discharge: 01/31/17 - Patient Status Disposition: Home, Self-Care Condition: Good Functional capacity at discharge: independent ambulation - Discharge Instructions Follow Up With: Remedios Marshall CNP [Primary Care Provider] - 02/07/17 2:00 pm - Diet and Activity Activity: increase activity as tolerated, return to work once cleared by your PCP/specialist Diet: advance to your usual diet, diabetic diet Hospital course: Ms. Lawson is a 46 year old female with PMH of cervical cancer with total hysterectomy, PE, diabetes, hernia, GI bleed, liver mass, hepatic steatosis. Patient was admitted for abdominal pain, hematuria, and chest pain. Patient denies chest pain since arrival. Echocardiogram and labs were negative and no further cardiac testing was necessary. Patient had EGD and colonoscopy, negative. Patient has had gross hematuria and will follow up with urology for cystoscopy in the office. Labs and vitals are stable. Patient is ready for discharge - Time Spent with Patient Total time spent providing and/or coordinating discharge services: Less than 30 minutes - Constitutional Vitals: Temp Pulse Resp BP Pulse Ox 98.1 F 68 20 137/84 100 01/31/17 14:06 01/31/17 14:06 01/31/17 14:06 01/31/17 14:06 01/31/17 14:06 General appearance: Present: cooperative, A&O X 3, morbidly obese, pleasant, no acute distress, answers questions appropriately - Head Head exam: Present: atraumatic, normal inspection, normocephalic - Eye Eye exam: Present: normal appearance, conjuntiva pink, sclera anicteric - Neck Neck exam general surgery: Present: supple, trachea midline. Absent: lymphadenopathy - Respiratory Respiratory exam: Present: CTAB. Absent: accessory muscle use, rales, rhonchi, wheezes - Cardiovascular Cardiovascular exam: Present: RRR, +S1, +S2. Absent: diastolic murmur, gallop, rubs, systolic murmur - GI/Abdominal GI/Abdominal exam: Present: normal bowel sounds, soft. Absent: distended, hepatomegaly, tenderness - Extremities Exam Extremities exam: Present: warm, radial pulses palpable and symmetrical. Absent : calf tenderness, cyanotic, pedal edema - Neurological Exam Neurological exam: Present: alert, oriented X3, no focal deficits. Absent: altered, facial droop, speech deficit - Skin Skin exam: Present: dry, intact, normal color, warm. Absent: rash
[2017-01-31 15:01] VITALS: BP 127/84
[2017-01-31] MEDS ORDERED: FLUARIX QUAD 2017-18 36MOS UP/PF 0.5 ML SYRINGE IM ONE (15:21)
== END 2017-01-31 15:41 | disposition home or self-care (01) ==
LOC: EMEROO 06:29 → 3BNU 06:29
PROVIDERS: ADMIT Internal Medicine; ATTEND Registered Nurse
PROC: ENDOEBX (2017-01-30 13:20)
PROC: ENDOCBX (2017-01-31 13:30)

== ENCOUNTER 2017-07-09 10:05 | Inpatient (IN) ==
[2017-07-09 10:54] LABS: Basophils % 0.4 %; Eosinophils # 0.5 K/mcL (0.0-0.6); Eosinophils % 5.4 %; Hematocrit 37.7 % (35.3-44.9); Hemoglobin 12.2 g/dL (11.5-15.4); Immature Granulocytes % 0.4 % (0-4); Lymphocytes # 1.4 K/mcL (0.6-4.6); Lymphocytes % 17.2 %; Mean Corpuscular HGB Conc 32.4 g/dL (31.6-35.5); Mean Corpuscular Hemoglobin 28.2 pg (28.0-33.3); Mean Corpuscular Volume 87.1 fL (83.0-100.0); Mean Platelet Volume 9.6 fL (9.4-12.4); Monocytes # 0.7 K/mcL (0.0-1.3); Monocytes % 8.8 %; Neutrophils # 5.7 K/mcL (1.6-8.9); Platelet Count 356 K/mcL (140-400); Red Blood Count 4.33 M/mcL (3.82-4.97); Red Cell Distribution Width 14.1 % (11.5-14.5); Segmented Neutrophils % 67.8 %
[2017-07-09 11:13] LABS: BUN/Creatinine Ratio 19 (6-26); Blood Urea Nitrogen 12 mg/dL (6-20); Calcium 9.4 mg/dL (8.6-10.3); Carbon Dioxide 28 mEq/L (23-29); Chloride 100 mEq/L (98-107); Glucose 122 mg/dL (70-105); Osmolality,Calculated 279 (280-300); Sodium 134 mEq/L (136-145); eGFR For African Americans > 60 (> 60); eGFR For Non-African Americans > 60 (> 60)
[2017-07-09 13:33] LABS: Prothrombin Time 10.2 Seconds (9.4-12.1)
[2017-07-09 13:36] LABS: Activated Partial Thrombo Time 36.8 Seconds (26.0-36.0)
[2017-07-09] MEDS ORDERED: Isovue-370 500 ML INFUS..BTL IV ONE (13:50)
--- NOTE | 2017-07-09 13:54 | Emergency Department Note ---
Disposition Clinical Impression: Diverticulitis Disposition: Admitted As Inpatient Condition: Fair GI Bleed HPI - General Chief complaint: ED GI Bleed Stated complaint: bloody stool, dizzy Time Seen by Provider: 07/09/17 11:18 Source: patient Limitations: no limitations Nursing Notes Reviewed: Yes Vital Signs Reviewed: Yes - History of Present Illness HPI Narrative: This is a 47 year-old female with history of HTN, IDDM, and CAD, who presents with rectal bleeding and abdominal cramps for the past week. Her stools have been loose, mixed with blood. She reports bilateral lower abdominal cramps, maximal in the left lower abdomen. She's had nausea and chills, no measured fever. She was sent to the ED from the the gastroenterology clinic, Dr. Reyes. She denies any history of GIB. Has had a colonoscopy in the past year, polyp removed. Pt Subjective Complaint: gross hematochezia Onset (ago): week(s) (1) Consistency: intermittent, Worsening Severity: moderate Improves with: nothing Worsens with: nothing Associated symptoms: Reports: abdominal pain, nausea, vomiting, chills, weakness (generalized). Denies: fever - Related Data Home Medications Medication Instructions Recorded Confirmed Gabapentin [Neurontin] 600 mg PO TID 01/04/15 07/09/17 Cholecalciferol (D-3) [Vitamin D] 1,000 unit PO DAILY 04/19/16 07/09/17 Atorvastatin Calcium [Lipitor] 20 mg PO DAILY 05/06/17 07/09/17 Insulin Glargine,Hum.rec.anlog 50 unit SQ DAILY 05/06/17 07/09/17 [[place] Carrillo] Lansoprazole [Prevacid] 30 mg PO DAILY 05/06/17 07/09/17 HYDROcodone/Acet 5/325 mg [[place] 1 tab PO Q4H PRN 07/09/17 07/09/17 5-325 mg] Metformin HCl [Metformin HCl] 1,000 mg PO BID 07/09/17 07/09/17 Allergies Allergy/AdvReac Type Severity Reaction Status Date / Time ibuprofen [From Motrin] AdvReac Gastrointestinal Verified 05/27/17 02:52 Upset NSAIDS (Non-Steroidal AdvReac Gastrointestinal Verified 05/27/17 02:52 Anti-Inflamma Upset All systems ED: reviewed and negative except as stated. Constitutional: Reports: chills. Denies: fever Cardiovascular: Denies: chest pain Respiratory: Denies: dyspnea Gastrointestinal: Reports: abdominal pain, nausea, vomiting, diarrhea, hematochezia. 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 Absent: scleral icterus - ENT ENT exam: normal exam - Respiratory Respiratory exam: Present: normal lung sounds bilaterally. Absent: respiratory distress - Cardiovascular Cardiovascular exam: Present: regular rate, normal rhythm, normal heart sounds - Abdominal Exam Abdominal exam: Present: soft, tenderness (mild, LLQ), normal bowel sounds. Absent: distention, guarding, rebound, rigidity - Rectal Exam Resident Services Coordinator present during exam: Yes Rectal exam: Present: normal inspection, normal rectal tone, heme (-) stool. Absent: black stool, bloody stool, hemorrhoids, mass, tenderness - Extremities Exam Extremities exam: Present: normal inspection - Neurological Exam Neurological exam: Present: alert, oriented X3. Absent: motor sensory deficit - Psychiatric Psychiatric exam: Present: normal affect, normal mood - Skin Skin exam: Present: warm, dry, intact Course - Reevaluation(s) Reevaluation #1: Discussed test results and plans with patient. She is in agreement with admission. Time: 15:39 - Consultations Consultation #1: Paged Dr. Reyes. Time: 15:17 Consultation #2: Discussed case with Dr. Reyes. He suggests we admit to hospitalst, and he will consult as needed. Time: 15:21 Vital Signs Temperature 97.8 F 07/09/17 10:12 Pulse Rate 86 07/09/17 10:12 Respiratory Rate 18 07/09/17 10:12 Blood Pressure 117/74 07/09/17 10:12 O2 Sat by Pulse Oximetry 95 07/09/17 10:12 Temperature 98.6 F 07/11/17 07:28 Pulse Rate 77 07/11/17 07:28 Respiratory Rate 16 07/11/17 07:28 Blood Pressure 114/72 07/11/17 07:28 O2 Sat by Pulse Oximetry 95 07/11/17 07:28 Oxygen Delivery Oxygen Delivery Room Air GI Bleed - Lab Data Result diagrams: 07/11/17 06:14 07/11/17 06:14 Lab Results 07/09/17 07/09/17 07/09/17 Range/Units 10:32 10:32 10:32 WBC 8.4 (4.3-11.1) K/mcL RBC 4.33 (3.82-4.97) M/mcL Hgb 12.2 (11.5-15.4) g/dL Hct 37.7 (35.3-44.9) % MCV 87.1 (83.0-100.0) fL MCH 28.2 (28.0-33.3) pg MCHC 32.4 (31.6-35.5) g/dL RDW 14.1 (11.5-14.5) % Plt Count 356 (140-400) K/mcL MPV 9.6 (9.4-12.4) fL Immature Gran % 0.4 (0-4) % Seg Neutrophils % 67.8 % Lymphocytes % 17.2 % Monocytes % 8.8 % Eosinophils % 5.4 % Basophils % 0.4 % Neutrophils # 5.7 (1.6-8.9) K/mcL Lymphocytes # 1.4 (0.6-4.6) K/mcL Monocytes # 0.7 (0.0-1.3) K/mcL Eosinophils # 0.5 (0.0-0.6) K/mcL Basophils # 0.0 (0.0-0.2) K/mcL PT (9.4-12.1) Seconds INR APTT (26.0-36.0) Seconds Sodium 134 L (136-145) mEq/L Potassium 4.0 (3.5-5.1) mEq/L Chloride 100 (98-107) mEq/L Carbon Dioxide 28 (23-29) mEq/L BUN 12 (6-20) mg/dL Creatinine 0.62 (0.60-1.20) mg/dL Est GFR ( Amer) > 60 (> 60) Est GFR (Non-Af Amer) > 60 (> 60) BUN/Creatinine Ratio 19 (6-26) Glucose 122 H (70-105) mg/dL Calculated Osmolality 279 L (280-300) Calcium 9.4 (8.6-10.3) mg/dL Blood Type A POSITIVE Antibody Screen NEGATIVE 07/09/17 Range/Units 10:32 WBC (4.3-11.1) K/mcL RBC (3.82-4.97) M/mcL Hgb (11.5-15.4) g/dL Hct (35.3-44.9) % MCV (83.0-100.0) fL MCH (28.0-33.3) pg MCHC (31.6-35.5) g/dL RDW (11.5-14.5) % Plt Count (140-400) K/mcL MPV (9.4-12.4) fL Immature Gran % (0-4) % Seg Neutrophils % % Lymphocytes % % Monocytes % % Eosinophils % % Basophils % % Neutrophils # (1.6-8.9) K/mcL Lymphocytes # (0.6-4.6) K/mcL Monocytes # (0.0-1.3) K/mcL Eosinophils # (0.0-0.6) K/mcL Basophils # (0.0-0.2) K/mcL PT 10.2 (9.4-12.1) Seconds INR 1.0 APTT 36.8 H (26.0-36.0) Seconds Sodium (136-145) mEq/L Potassium (3.5-5.1) mEq/L Chloride (98-107) mEq/L Carbon Dioxide (23-29) mEq/L BUN (6-20) mg/dL Creatinine (0.60-1.20) mg/dL Est GFR ( Amer) (> 60) Est GFR (Non-Af Amer) (> 60) BUN/Creatinine Ratio (6-26) Glucose (70-105) mg/dL Calculated Osmolality (280-300) Calcium (8.6-10.3) mg/dL Blood Type Antibody Screen - Radiology Data Radiology results reviewed: Yes I reviewed the patient's radiology results. CT/CT abd pelvis w iv no oral IMPRESSION: Descending and sigmoid colon diverticulosis. Mild soft tissue stranding surrounding the proximal sigmoid colon may reflect mild diverticulitis. Hepatic steatosis. - EKG Data EKG attestation: Yes I reviewed and interpreted this EKG. EKG shows normal: sinus rhythm, axis Rhythm: NSR When compared to previous EKG there are: no significant changes Interpretation: nonspecific ST-T wave changes
[2017-07-09] MEDS ORDERED: Ondansetron 4 MG/2 ML VIAL IVP ONE (14:08)
[2017-07-09] MEDS ORDERED: *HR* Nalbuphine 10 MG/ML AMPUL IV STA (14:08)
[2017-07-09] MEDS ORDERED: MetroNIDAZOLE 500 MG/100 ML 500 MG/100 ML BAG IVPB ONE (15:18)
[2017-07-09] MEDS ORDERED: *HR* OxyCODONE/APAP 5/325 TABLET PO ONE (16:18)
[2017-07-09] MEDS ORDERED: Ondansetron 4 MG/2 ML VIAL IVP PRN (18:43)
[2017-07-09] MEDS ORDERED: OXYCODONE Oral CONC 10 MG/0.5 ML ORAL.SYG SL PRN (18:43)
[2017-07-09] MEDS ORDERED: Naloxone 0.4 MG/ML INJ IVP PRN (18:43)
[2017-07-09] MEDS ORDERED: D5% in Water 1,000 ML IVC PRN (18:43)
[2017-07-09] MEDS ORDERED: Dextrose Gel 15 GM/37.5 ML TUBE PO PRN ×2 (18:43)
[2017-07-09] MEDS ORDERED: *HR* Dextrose 50 % in Water (Syg) 50 ML SYRINGE IVP PRN (18:43)
--- NOTE | 2017-07-09 18:49 | Internal Med History&Physical ---
Date of Encounter: 07/09/17 Time of Encounter: 18:48 Internal Medicine - H&P: HPI Chief complaint: Abdominal pain and rectal bleeding Admitted From: Emergency Dept History of present illness: Ms. Lawson is a 47 year old female with a past medical history of squamous cell carcinoma of the cervix, pulmonary emboli not on adequate ablation any longer, gastric ulcers, diabetes type 2 insulin-dependent, CAD, who was sent from Dr. Reyes's office as the patient has been complaining of lower abdominal cramps and rectal bleeding on and off for the past week. The patient's vital signs are stable, her hemoglobin is 12.2, sodium is 134. CT scan of the abdomen showed sigmoid diverticulitis. She was started on ciprofloxacin and Flagyl IV at the emergency room. Has been having chills, nausea no vomiting, episodes of loose stools. Feeling weak. Past Med Surg Social Fam HX - Past Medical History Medical history: arthritis, cancer (Squamous cell carcinoma of the cervix), diabetes (Insulin-dependent), myocardial infarction, pulmonary embolus (Not to recent), other (Gastric ulcers, overreactive bladder, neuropathy, CAD, GERD) Psychiatric history: no psych history - Past Surgical History Surgical History: cholecystectomy, herniorrhaphy, hysterectomy, other - Social History Smoking Status: Never smoker Smokeless Tobacco Status: No Alcohol use: none Drug use: none - Family History Mother Living Status: Still Living Hx Family Cardiac Disorders: Yes (CHF) Hx Family Respiratory Disorders: No Hx Family Cancer: No Hx Family GI Disorders: No Hx Family Endocrine Disorder: Yes (THYROID DX) Hx Family Neuromuscular Disorders: No Hx Family Neurologic Disorders: No Hx Family HEENT Disorders: No Hx Family Autoimmune Disorders: No - Additional Family History Additional family history: Father with hypertension CAD, sister with cervical cancer, mother with CVA and hypertension, grandmother with breast cancer Internal Medicine - H&P: Meds Gabapentin [Neurontin] 600 mg PO TID 01/04/15 [History] Cholecalciferol (D-3) [Vitamin D] 1,000 unit PO DAILY 04/19/16 [History] Atorvastatin Calcium [Lipitor] 20 mg PO DAILY 05/06/17 [History] Insulin Glargine,Hum.rec.anlog [Toujeo Solostar] 50 unit SQ DAILY 05/06/17 [ History] Lansoprazole [Prevacid] 30 mg PO DAILY 05/06/17 [History] HYDROcodone/Acet 5/325 mg [[place] 5-325 mg] 1 tab PO Q4H PRN 07/09/17 [History] Metformin HCl [Metformin HCl] 1,000 mg PO BID 07/09/17 [History] 3 Allergy/AdvReac Type Severity Reaction Status Date / Time ibuprofen [From Motrin] AdvReac Gastrointestinal Verified 05/27/17 02:52 Upset NSAIDS (Non-Steroidal AdvReac Gastrointestinal Verified 05/27/17 02:52 Anti-Inflamma Upset All Systems PM: A 10-system review of systems was performed and is negative for pertinent findings except as documented above in the HPI. Review of systems: Abdominal pain, no chest pain or shortness of breath, other systems out of the 10 reviewed were negative - Constitutional Vitals: Temp Pulse Resp BP Pulse Ox 97.5 F L 81 18 119/72 96 07/09/17 18:42 07/09/17 18:42 07/09/17 18:42 07/09/17 18:15 07/09/17 18:42 General appearance: Present: morbidly obese Exam: Dry mucosa, dehydrated - Head Head exam: Present: atraumatic, normocephalic - Eye Eye exam: Present: PERRL, conjuntiva pink, sclera anicteric Pupils: Present: PERRL - Neck Neck exam general surgery: Present: supple, trachea midline. Absent: lymphadenopathy - Respiratory Respiratory exam: Present: CTAB. Absent: accessory muscle use, rales, rhonchi, wheezes - Cardiovascular Cardiovascular exam: Present: RRR, +S1, +S2. Absent: diastolic murmur, gallop, rubs, systolic murmur - GI/Abdominal GI/Abdominal exam: Present: normal bowel sounds, soft, tenderness (Lower abdominal tenderness, no rebound), no peritoneal signs. Absent: distended, rebound - Extremities Exam Extremities exam: Present: warm, radial pulses palpable and symmetrical. Absent : calf tenderness, cyanotic, pedal edema - Neurological Exam Neurological exam: Present: CN II-XII intact, oriented X3, no focal deficits. Absent: pronater drift, facial droop, speech deficit - Skin Skin exam: Present: dry, intact Internal Med - H&P Results - Labs CBC & Chem 7: 07/09/17 10:32 07/09/17 10:32 - Assessment and plan (1) Diverticulitis Current Visit: Yes Status: Acute Assessment and plan: Rectal bleed likely secondary to acute sigmoid diverticulitis Nothing by mouth, IV fluids, pain control Continue IV ciprofloxacin and Flagyl CT scan of the abdomen shows sigmoid diverticulitis Check a UA Protonix IV for GI prophylaxis and sequential compression devices for DVT prophylaxis. The patient will be admitted for observation. Full code. Time spent on this admission 40 minutes (2) Gastrointestinal bleeding Current Visit: No Status: Acute Qualifiers: GI bleed type/associated pathology: unspecified gastrointestinal hemorrhage type Qualified Code(s): K92.2 - Gastrointestinal hemorrhage, unspecified (3) Insulin dependent diabetes mellitus Current Visit: No Status: Chronic Assessment and plan: Insulin sliding scale (4) Morbid obesity with BMI of 40.0-44.9, adult Current Visit: No Status: Chronic (5) HTN (hypertension) Current Visit: No Status: Chronic Assessment and plan: Stable Qualifiers: Hypertension type: essential hypertension Qualified Code(s): I10 - Essential (primary) hypertension (6) Hyponatremia Current Visit: Yes Status: Acute Assessment and plan: Recheck in the morning - Time Spent With Patient Total time spent is greater than 50% in coordination of care (as documented) at patient's floor/unit and/or counseling patient:
[2017-07-09] MEDS: 0.9 % Sodium Chloride 1,000 ML IVC SCH (19:24)
[2017-07-09] MEDS: Pantoprazole 40 MG VIAL IVP SCH (19:25)
[2017-07-09] MEDS: OXYCODONE Oral CONC 10 MG/0.5 ML ORAL.SYG SL PRN (21:24)
[2017-07-10] MEDS: MetroNIDAZOLE 500 MG/100 ML 500 MG/100 ML BAG IVPB SCH ×3 (00:08→15:29)
[2017-07-10] MEDS: Insulin LISPRO 300 UNITS/3 ML VIAL SQ SCH ×5 (00:27→21:21)
[2017-07-10] MEDS: OXYCODONE Oral CONC 10 MG/0.5 ML ORAL.SYG SL PRN ×5 (01:17→19:33)
[2017-07-10] MEDS: 0.9 % Sodium Chloride 1,000 ML IVC SCH (03:10)
[2017-07-10 06:53] LABS: Hematocrit 33.5 % (35.3-44.9); Hemoglobin 10.8 g/dL (11.5-15.4); Mean Corpuscular HGB Conc 32.2 g/dL (31.6-35.5); Mean Corpuscular Hemoglobin 27.9 pg (28.0-33.3); Mean Corpuscular Volume 86.6 fL (83.0-100.0); Mean Platelet Volume 9.5 fL (9.4-12.4); Platelet Count 281 K/mcL (140-400); Red Blood Count 3.87 M/mcL (3.82-4.97); Red Cell Distribution Width 14.1 % (11.5-14.5)
[2017-07-10 07:01] LABS: BUN/Creatinine Ratio 15 (6-26); Blood Urea Nitrogen 8 mg/dL (6-20); Calcium 8.2 mg/dL (8.6-10.3); Carbon Dioxide 27 mEq/L (23-29); Chloride 107 mEq/L (98-107); Glucose 103 mg/dL (70-105); Osmolality,Calculated 289 (280-300); Potassium 3.5 mEq/L (3.5-5.1); Sodium 140 mEq/L (136-145); eGFR For African Americans > 60 (> 60); eGFR For Non-African Americans > 60 (> 60)
[2017-07-10 07:51] LABS: Bilirubin,Urine Small (Negative); Blood,Urine Negative (Negative); Clarity,Urine Clear (Clear); Color,Urine Yellow (Yellow); Glucose,Urine (UA) Normal (Normal); Ketones,Urine Negative (Negative); Leukocyte Esterase,Urine Moderate (Negative); Nitrite,Urine Negative (Negative); Protein,Urine Negative (Neg-Trace); Specific Gravity,Urine 1.017 (1.010-1.025); Urobilinogen,Urine Normal (Normal)
[2017-07-10 07:54] LABS: Bacteria,Urine None Seen per hpf (None-Few); Hyaline Casts,Urine None Seen per lpf (None-Few); RBC,Urine 0-3 per hpf (0-3); Squamous Epithelial Cell,Urine Many per lpf (None-Few)
[2017-07-10] MEDS: Pantoprazole 40 MG VIAL IVP SCH (09:35)
--- NOTE | 2017-07-10 10:01 | Electrocardiograph Report ---
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
--- NOTE | 2017-07-10 12:28 | Internal Med Progress Note ---
Date of Encounter: 07/10/17 Time of Encounter: 09:00 - Assessment and plan (1) Diverticulitis Current Visit: Yes Status: Acute Assessment and plan: Rectal bleed likely secondary to acute sigmoid diverticulitis Nothing by mouth, IV fluids, pain control Continue IV ciprofloxacin and Flagyl CT scan of the abdomen shows sigmoid diverticulitis Check a UA Protonix IV for GI prophylaxis and sequential compression devices for DVT prophylaxis. The patient will be admitted for observation. Full code. Time spent on this admission 40 minutes 07/10: Day #2 IV Cipro and IV Flagyl. Advance diet to clears today. If tolerates will likely change to oral antibiotic and further advanced diet either this evening or tomorrow morning. (2) Gastrointestinal bleeding Current Visit: No Status: Acute Assessment and plan: No further bleeding noted. Hemoglobin is stable Suspect this is related to diverticulosis. She did have a colonoscopy 1 year ago which she was noted to have diverticulosis. Monitor. Qualifiers: GI bleed type/associated pathology: unspecified gastrointestinal hemorrhage type Qualified Code(s): K92.2 - Gastrointestinal hemorrhage, unspecified (3) Insulin dependent diabetes mellitus Current Visit: No Status: Chronic Assessment and plan: Insulin sliding scale (4) Morbid obesity with BMI of 40.0-44.9, adult Current Visit: No Status: Chronic (5) HTN (hypertension) Current Visit: No Status: Chronic Assessment and plan: Stable Qualifiers: Hypertension type: essential hypertension Qualified Code(s): I10 - Essential (primary) hypertension (6) Hyponatremia Current Visit: Yes Status: Acute Assessment and plan: Recheck in the morning 07/10: Suspect hypovolemic hyponatremia. Sodium is normalized with IV fluids. Continue to monitor. - Time Spent With Patient Total time spent is greater than 50% in coordination of care (as documented) at patient's floor/unit and/or counseling patient: 25 - 35 minutes - Subjective Interval history: Ms. Lawsno is a 47 year old female with a past medical history of squamous cell carcinoma of the cervix, pulmonary emboli not on adequate ablation any longer, gastric ulcers, diabetes type 2 insulin-dependent, CAD, who was sent from Dr. Reyes's office as the patient has been complaining of lower abdominal cramps and rectal bleeding on and off for the past week. The patient's vital signs are stable, her hemoglobin is 12.2, sodium is 134. CT scan of the abdomen showed sigmoid diverticulitis. She was started on ciprofloxacin and Flagyl IV at the emergency room. Has been having chills, nausea no vomiting, episodes of loose stools. Feeling weak. 07/10: She still has some mid lower abdominal pain and cramping but states it has improved. No reported blood in her stool since admission. She has had some mild nausea but no vomiting. No fevers or chills. No chest pain or shortness of breath. Overall she states she feels slightly better and is asking to eat - Constitutional Vitals: Temp Pulse Resp BP Pulse Ox 98 F 73 16 117/72 97 07/10/17 11:07/10/17 11:00 07/10/17 11:00 07/10/17 11:07/10/17 11:00 General appearance: Present: morbidly obese - Head Head exam: Present: atraumatic, normocephalic - Eye Eye exam: Present: PERRL, conjuntiva pink, sclera anicteric Pupils: Present: PERRL - Neck Neck exam general surgery: Present: supple, trachea midline. Absent: lymphadenopathy - Respiratory Respiratory exam: Present: CTAB. Absent: accessory muscle use, rales, rhonchi, wheezes - Cardiovascular Cardiovascular exam: Present: RRR, +S1, +S2. Absent: diastolic murmur, gallop, rubs, systolic murmur - GI/Abdominal GI/Abdominal exam: Present: normal bowel sounds, soft, tenderness (Mild mid lower epigastric tenderness to palpation), no peritoneal signs. Absent: distended - Extremities Exam Extremities exam: Present: warm, radial pulses palpable and symmetrical. Absent : calf tenderness, cyanotic, pedal edema - Neurological Exam Neurological exam: Present: CN II-XII intact, oriented X3, no focal deficits. Absent: pronater drift, facial droop, speech deficit - Skin Skin exam: Present: dry, intact Internal Medicine: Result - Labs CBC & Chem 7: 07/10/17 06:20 07/10/17 06:20 Labs: Short CBC 07/10/17 Range/Units 06:20 WBC 5.7 (4.3-11.1) K/mcL Hgb 10.8 L (11.5-15.4) g/dL Hct 33.5 L (35.3-44.9) % Plt Count 281 (140-400) K/mcL BMP 07/10/17 06:20 Sodium 140 Potassium 3.5 Chloride 107 Carbon Dioxide 27 BUN 8 Creatinine 0.54 L Glucose 103 Calcium 8.2 L Urine 07/10/17 Range/Units 07:30 Urine Color Yellow (Yellow) Urine Clarity Clear (Clear) Urine pH 6.0 (5.0-8.0) pH Units Ur Specific [place] 1.017 (1.010-1.025) Urine Protein Negative (Neg-Trace) mg/dL Urine Glucose (UA) Normal (Normal) mg/dL - ABG Interpretation ABG results: PT/INR, D-dimer PT 10.2 Seconds (9.4-12.1) 07/09/17 10:32 - VTE Documentation of Mechanical Device: Intermittent pneumatic compression device Consult Discharge Plan - Plan Referrals: Everett Moulton MD [Primary Care Provider] -
[2017-07-10] MEDS: Gabapentin 300 MG CAPSULE PO SCH ×2 (15:28→21:19)
[2017-07-11] MEDS: MetroNIDAZOLE 500 MG/100 ML 500 MG/100 ML BAG IVPB SCH ×2 (00:40→09:12)
[2017-07-11] MEDS: OXYCODONE Oral CONC 10 MG/0.5 ML ORAL.SYG SL PRN ×6 (00:45→22:47)
[2017-07-11 06:39] LABS: Basophils % 0.3 %; Eosinophils # 0.3 K/mcL (0.0-0.6); Eosinophils % 4.7 %; Hemoglobin 10.8 g/dL (11.5-15.4); Immature Granulocytes % 0.3 % (0-4); Lymphocytes # 1.3 K/mcL (0.6-4.6); Lymphocytes % 19.5 %; Mean Corpuscular HGB Conc 32.7 g/dL (31.6-35.5); Mean Corpuscular Hemoglobin 28.8 pg (28.0-33.3); Mean Platelet Volume 9.5 fL (9.4-12.4); Monocytes # 0.6 K/mcL (0.0-1.3); Monocytes % 8.6 %; Neutrophils # 4.4 K/mcL (1.6-8.9); Platelet Count 282 K/mcL (140-400); Red Blood Count 3.75 M/mcL (3.82-4.97); Segmented Neutrophils % 66.6 %
[2017-07-11 06:54] LABS: BUN/Creatinine Ratio 15 (6-26); Blood Urea Nitrogen 8 mg/dL (6-20); Calcium 8.4 mg/dL (8.6-10.3); Carbon Dioxide 27 mEq/L (23-29); Chloride 105 mEq/L (98-107); Glucose 103 mg/dL (70-105); Osmolality,Calculated 289 (280-300); Potassium 3.6 mEq/L (3.5-5.1); Sodium 140 mEq/L (136-145); eGFR For African Americans > 60 (> 60); eGFR For Non-African Americans > 60 (> 60)
[2017-07-11] MEDS: Pantoprazole 40 MG VIAL IVP SCH (09:12)
[2017-07-11] MEDS: Gabapentin 300 MG CAPSULE PO SCH ×3 (09:12→20:28)
[2017-07-11] MEDS: Insulin LISPRO 300 UNITS/3 ML VIAL SQ SCH ×4 (09:13→20:32)
--- NOTE | 2017-07-11 13:51 | Internal Med Progress Note ---
Date of Encounter: 07/11/17 Time of Encounter: 11:00 - Assessment and plan (1) Diverticulitis Current Visit: Yes Status: Acute Assessment and plan: Rectal bleed likely secondary to acute sigmoid diverticulitis Nothing by mouth, IV fluids, pain control Continue IV ciprofloxacin and Flagyl CT scan of the abdomen shows sigmoid diverticulitis Check a UA Protonix IV for GI prophylaxis and sequential compression devices for DVT prophylaxis. The patient will be admitted for observation. Full code. Time spent on this admission 40 minutes 07/11: Day #3 IV Cipro and IV Flagyl. Advance diet to clears today. Advance diet. We will likely keep in hospital 1 additional day due to significant pain. Monitor. (2) Gastrointestinal bleeding Current Visit: No Status: Acute Assessment and plan: No further bleeding noted. Hemoglobin is stable Suspect this is related to diverticulosis. She did have a colonoscopy 1 year ago which she was noted to have diverticulosis. Monitor. 07/11: Hemoglobin stable, monitor (3) Insulin dependent diabetes mellitus Current Visit: No Status: Chronic Assessment and plan: Insulin sliding scale (4) Morbid obesity with BMI of 40.0-44.9, adult Current Visit: No Status: Chronic (5) HTN (hypertension) Current Visit: No Status: Chronic Assessment and plan: Stable Qualifiers: Hypertension type: essential hypertension Qualified Code(s): I10 - Essential (primary) hypertension (6) Hyponatremia Current Visit: Yes Status: Acute Assessment and plan: Recheck in the morning 07/10: Suspect hypovolemic hyponatremia. Sodium is normalized with IV fluids. Continue to monitor. 07/11: Resolved. - Time Spent With Patient Total time spent is greater than 50% in coordination of care (as documented) at patient's floor/unit and/or counseling patient: 25 - 35 minutes - Subjective Interval history: Ms. Lawson is a 47 year old female with a past medical history of squamous cell carcinoma of the cervix, pulmonary emboli not on adequate ablation any longer, gastric ulcers, diabetes type 2 insulin-dependent, CAD, who was sent from Dr. Reyes's office as the patient has been complaining of lower abdominal cramps and rectal bleeding on and off for the past week. The patient's vital signs are stable, her hemoglobin is 12.2, sodium is 134. CT scan of the abdomen showed sigmoid diverticulitis. She was started on ciprofloxacin and Flagyl IV at the emergency room. Has been having chills, nausea no vomiting, episodes of loose stools. Feeling weak. 07/10: She still has some mid lower abdominal pain and cramping but states it has improved. No reported blood in her stool since admission. She has had some mild nausea but no vomiting. No fevers or chills. No chest pain or shortness of breath. Overall she states she feels slightly better and is asking to eat 07/11: Patient states overall she is feeling better but still has abdominal pain about 5 out of 10 in severity in her left lower quadrant. No nausea or vomiting. No fevers or chills. She has tolerated clears. - Constitutional Vitals: Temp Pulse Resp BP Pulse Ox 98.1 F 72 15 121/73 96 07/11/17 11:45 07/11/17 11:45 07/11/17 11:45 07/11/17 11:45 07/11/17 11:45 General appearance: Present: morbidly obese - Head Head exam: Present: atraumatic, normocephalic - Eye Eye exam: Present: PERRL, conjuntiva pink, sclera anicteric Pupils: Present: PERRL - Neck Neck exam general surgery: Present: supple, trachea midline. Absent: lymphadenopathy - Respiratory Respiratory exam: Present: CTAB. Absent: accessory muscle use, rales, rhonchi, wheezes - Cardiovascular Cardiovascular exam: Present: RRR, +S1, +S2. Absent: diastolic murmur, gallop, rubs, systolic murmur - GI/Abdominal GI/Abdominal exam: Present: normal bowel sounds, soft, tenderness, no peritoneal signs. Absent: distended Additional comments: Left lower quadrant tenderness to palpation - Extremities Exam Extremities exam: Present: warm, radial pulses palpable and symmetrical. Absent : calf tenderness, cyanotic, pedal edema - Neurological Exam Neurological exam: Present: CN II-XII intact, oriented X3, no focal deficits. Absent: pronater drift, facial droop, speech deficit - Skin Skin exam: Present: dry, intact Internal Medicine: Result - Labs CBC & Chem 7: 07/11/17 06:14 07/11/17 06:14 Labs: Short CBC 07/11/17 Range/Units 06:14 WBC 6.6 (4.3-11.1) K/mcL Hgb 10.8 L (11.5-15.4) g/dL Hct 33.0 L (35.3-44.9) % Plt Count 282 (140-400) K/mcL Neutrophils # 4.4 (1.6-8.9) K/mcL BMP 07/11/17 06:14 Sodium 140 Potassium 3.6 Chloride 105 Carbon Dioxide 27 BUN 8 Creatinine 0.53 L Glucose 103 Calcium 8.4 L - ABG Interpretation ABG results: PT/INR, D-dimer PT 10.2 Seconds (9.4-12.1) 07/09/17 10:32 - VTE Documentation of Mechanical Device: Intermittent pneumatic compression device Consult Discharge Plan - Plan Referrals: Everett Moulton MD [Primary Care Provider] -
[2017-07-11] MEDS: metroNIDAZOLE 500 MG TABLET PO SCH ×2 (14:45→20:27)
[2017-07-12] MEDS: OXYCODONE Oral CONC 10 MG/0.5 ML ORAL.SYG SL PRN ×3 (02:50→12:47)
[2017-07-12 04:16] LABS: Basophils % 0.4 %; Eosinophils # 0.3 K/mcL (0.0-0.6); Eosinophils % 4.5 %; Hematocrit 35.4 % (35.3-44.9); Hemoglobin 11.6 g/dL (11.5-15.4); Immature Granulocytes % 0.5 % (0-4); Lymphocytes # 1.4 K/mcL (0.6-4.6); Lymphocytes % 19.2 %; Mean Corpuscular HGB Conc 32.8 g/dL (31.6-35.5); Mean Corpuscular Volume 88.5 fL (83.0-100.0); Mean Platelet Volume 9.7 fL (9.4-12.4); Monocytes # 0.6 K/mcL (0.0-1.3); Platelet Count 307 K/mcL (140-400); Red Cell Distribution Width 13.7 % (11.5-14.5); Segmented Neutrophils % 67.4 %
[2017-07-12 04:23] LABS: BUN/Creatinine Ratio 10 (6-26); Blood Urea Nitrogen 6 mg/dL (6-20); Calcium 8.2 mg/dL (8.6-10.3); Carbon Dioxide 24 mEq/L (23-29); Chloride 106 mEq/L (98-107); Glucose 111 mg/dL (70-105); Osmolality,Calculated 284 (280-300); Potassium 4.2 mEq/L (3.5-5.1); Sodium 138 mEq/L (136-145); eGFR For African Americans > 60 (> 60); eGFR For Non-African Americans > 60 (> 60)
[2017-07-12] MEDS: Insulin LISPRO 300 UNITS/3 ML VIAL SQ SCH ×2 (08:03→11:24)
[2017-07-12] MEDS: metroNIDAZOLE 500 MG TABLET PO SCH (08:11)
[2017-07-12] MEDS: Gabapentin 300 MG CAPSULE PO SCH (08:11)
[2017-07-12 11:21] VITALS: BP 109/72
--- NOTE | 2017-07-12 11:52 | Discharge Summary ---
Date of Encounter: 07/12/17 Time of Encounter: 10:00 - Discharge Diagnosis (1) Diverticulitis Priority: Primary Status: Acute (2) Gastrointestinal bleeding Priority: Secondary Status: Acute (3) Insulin dependent diabetes mellitus Priority: Secondary Status: Chronic (4) Morbid obesity with BMI of 40.0-44.9, adult Priority: Secondary Status: Chronic (5) HTN (hypertension) Priority: Secondary Status: Chronic Qualifiers: Hypertension type: essential hypertension Qualified Code(s): I10 - Essential (primary) hypertension (6) Hyponatremia Priority: Secondary Status: Acute Hospital course: Ms. Lawson is a 47 year old female with a past medical history of squamous cell carcinoma of the cervix, pulmonary emboli not on adequate ablation any longer, gastric ulcers, diabetes type 2 insulin-dependent, CAD, who was sent from Dr. Reyes's office as the patient has been complaining of lower abdominal cramps and rectal bleeding on and off for the past week. The patient's vital signs are stable, her hemoglobin is 12.2, sodium is 134. CT scan of the abdomen showed sigmoid diverticulitis. She was started on ciprofloxacin and Flagyl IV at the emergency room. Has been having chills, nausea no vomiting, episodes of loose stools. Feeling weak. 07/10: She still has some mid lower abdominal pain and cramping but states it has improved. No reported blood in her stool since admission. She has had some mild nausea but no vomiting. No fevers or chills. No chest pain or shortness of breath. Overall she states she feels slightly better and is asking to eat 07/11: Patient states overall she is feeling better but still has abdominal pain about 5 out of 10 in severity in her left lower quadrant. No nausea or vomiting. No fevers or chills. She has tolerated clears. 07/12: Patient did well. Initially treated with IV Cipro and Flagyl. On day of discharge she was transitioned to oral antibiotics. She is currently day #4 of Cipro 500 mg by mouth twice a day, and day #4 of Flagyl 500 mg by mouth 3 times a day. Will complete a 10 day course of antibiotics. Patient was tolerating a full diet. He remained afebrile. Pain was near completely resolved. She still has some very mild left lower quadrant tenderness to palpation. Patient was stable for discharge. She will follow-up with her primary care provider next week, sooner if any problems such as fevers, increasing pain. Discharge discussed with: patient - Time Spent with Patient Total time spent providing and/or coordinating discharge services: Less than 30 minutes - Discharge Medications Home Medications: Gabapentin [Neurontin] 600 mg PO TID 01/04/15 [History] Cholecalciferol (D-3) [Vitamin D] 1,000 unit PO DAILY 04/19/16 [History] Atorvastatin Calcium [Lipitor] 20 mg PO DAILY 05/06/17 [History] Insulin Glargine,Hum.rec.anlog [Toujeo Solostar] 50 unit SQ DAILY 05/06/17 [ History] Lansoprazole [Prevacid] 30 mg PO DAILY 05/06/17 [History] HYDROcodone/Acet 5/325 mg [[place] 5-325 mg] 1 tab PO Q4H PRN 07/09/17 [History] Metformin HCl [Metformin HCl] 1,000 mg PO BID 07/09/17 [History] Allergies/Adverse Reactions: 3 Allergy/AdvReac Type Severity Reaction Status Date / Time ibuprofen [From Motrin] AdvReac Gastrointestinal Verified 05/27/17 02:52 Upset NSAIDS (Non-Steroidal AdvReac Gastrointestinal Verified 05/27/17 02:52 Anti-Inflamma Upset Date of admission: 07/11/17 13:56 Primary care physician: Everett Moulton MD Discharging clinician: George Arnold Anticipated date of discharge: 07/12/17 - Constitutional Vitals: Temp Pulse Resp BP Pulse Ox 98.6 F 80 16 109/72 93 07/12/17 11:20 07/12/17 11:20 07/12/17 11:20 07/12/17 11:20 07/12/17 11:20 General appearance: Present: morbidly obese - Head Head exam: Present: atraumatic, normocephalic - Eye Eye exam: Present: PERRL, conjuntiva pink, sclera anicteric Pupils: Present: PERRL - Neck Neck exam general surgery: Present: supple, trachea midline. Absent: lymphadenopathy - Respiratory Respiratory exam: Present: CTAB. Absent: accessory muscle use, rales, rhonchi, wheezes - Cardiovascular Cardiovascular exam: Present: RRR, +S1, +S2. Absent: diastolic murmur, gallop, rubs, systolic murmur - GI/Abdominal GI/Abdominal exam: Present: normal bowel sounds, soft, tenderness (Mild deep left lower quadrant tenderness to palpation. Improved. No rebound or guarding. ), no peritoneal signs. Absent: distended - Extremities Exam Extremities exam: Present: warm, radial pulses palpable and symmetrical. Absent : calf tenderness, cyanotic, pedal edema - Neurological Exam Neurological exam: Present: CN II-XII intact, oriented X3, no focal deficits. Absent: pronater drift, facial droop, speech deficit - Skin Skin exam: Present: dry, intact - Patient Status Disposition: Home, Self-Care Condition: Good Functional capacity at discharge: independent ambulation Overall status at discharge: patient is progressing back to baseline - Discharge Instructions Instructions: Diverticulitis (DC) Follow Up With: Everett Moulton MD [Primary Care Provider] - 07/19/17 10:15 am Additional Instructions: Follow-up with your doctor in 1 week - Diet and Activity Activity: resume usual activities as tolerated Diet: advance to your usual diet - VTE Documentation of Mechanical Device: Intermittent pneumatic compression device
[2017-07-12] MEDS ORDERED: OXYCODONE Oral CONC 10 MG/0.5 ML ORAL.SYG SL PRN (18:43)
== END 2017-07-12 13:05 | disposition home or self-care (01) | DRG 244 ==
LOC: EMEROO 10:05 → 3ANU 10:05
PROVIDERS: ADMIT Family Medicine; ATTEND Family Medicine

== ENCOUNTER 2017-12-17 12:46 | Observation (INO) ==
[2017-12-17] MEDS ORDERED: Acetaminophen 325 MG TABLET PO PRN (14:06)
[2017-12-17] MEDS ORDERED: Ondansetron 4 MG/2 ML VIAL IVP PRN (14:06)
[2017-12-17] MEDS ORDERED: *HR* Promethazine 25 MG/ML VIAL IVP PRN (14:06)
[2017-12-17] MEDS ORDERED: Naloxone 0.4 MG/ML INJ IVP PRN ×2 (14:06)
[2017-12-17] MEDS ORDERED: Isovue-370 500 ML INFUS..BTL IV ONE (14:36)
[2017-12-17 14:37] LABS: Basophils % 0.3 %; Eosinophils # 0.2 K/mcL (0.0-0.6); Eosinophils % 2.3 %; Hemoglobin 12.7 g/dL (11.5-15.4); Immature Granulocytes % 0.3 % (0-4); Lymphocytes # 1.1 K/mcL (0.6-4.6); Lymphocytes % 13.2 %; Mean Corpuscular HGB Conc 32.6 g/dL (31.6-35.5); Mean Corpuscular Hemoglobin 27.9 pg (28.0-33.3); Mean Corpuscular Volume 85.7 fL (83.0-100.0); Mean Platelet Volume 9.7 fL (9.4-12.4); Monocytes # 0.7 K/mcL (0.0-1.3); Monocytes % 7.8 %; Neutrophils # 6.6 K/mcL (1.6-8.9); Platelet Count 342 K/mcL (140-400); Red Blood Count 4.55 M/mcL (3.82-4.97); Segmented Neutrophils % 76.1 %
[2017-12-17] MEDS ORDERED: D5% in Water 1,000 ML IVC PRN (14:40)
[2017-12-17] MEDS ORDERED: *HR* Dextrose 50 % in Water (Syg) 50 ML SYRINGE IVP PRN (14:40)
[2017-12-17] MEDS ORDERED: Dextrose Gel 15 GM/37.5 ML TUBE PO PRN ×2 (14:40)
--- NOTE | 2017-12-17 14:50 | Internal Med History&Physical ---
Date of Encounter: 12/17/17 Time of Encounter: 14:43 Internal Medicine - H&P: HPI Chief complaint: Abdominal pain Admitted From: Emergency Dept Plans for Post Hospital Care: Home History of present illness: Ms. Lawson is a 47 year old female with a past medical history of squamous cell carcinoma of the cervix, pulmonary emboli not on anticoagulation any longer, gastric ulcers, diabetes type 2 insulin-dependent, CAD, who was admitted in this hospital in July 2017 with acute diverticulitis, now she was sent from Dr. Reyes's office as the patient has been complaining of lower abdominal cramps and rectal bleeding on and off for the past 2 months. Patient stated her pain was never completely improved since her last hospitalization. Since last 4 to 6 weeks her left lower abdominal pain progressively worsening also have intermittent on and off bright red blood per rectum. She also mentioned nausea and vomiting. Denied any chest pain/shortness of breath. Patient denied any recent travel history. She denied any sick contacts at home. She denied any colon cancer in the family. Past Med Surg Social Fam HX - Past Medical History Medical history: cancer, diabetes, hyperlipidemia Additional medical history: Ovarian CA Psychiatric history: no psych history - Past Surgical History Surgical History: cholecystectomy, herniorrhaphy, hysterectomy, other Additional surgical history: Right leg surgery - Social History Smoking Status: Never smoker Smokeless Tobacco Status: No Alcohol use: none Drug use: none - Family History Mother Living Status: Still Living Hx Family Cardiac Disorders: Yes (CHF) Hx Family Respiratory Disorders: No Hx Family Cancer: No Hx Family GI Disorders: No Hx Family Endocrine Disorder: Yes (THYROID DX) Hx Family Neuromuscular Disorders: No Hx Family Neurologic Disorders: No Hx Family HEENT Disorders: No Hx Family Autoimmune Disorders: No Internal Medicine - H&P: Meds Gabapentin [Neurontin] 600 mg PO TID 01/04/15 [History] Cholecalciferol (D-3) [Vitamin D] 1,000 unit PO DAILY 04/19/16 [History] Atorvastatin Calcium [Lipitor] 20 mg PO DAILY 05/06/17 [History] Insulin Glargine,Hum.rec.anlog [Toujeo Solostar] 50 unit SQ DAILY 05/06/17 [History] Lansoprazole [Prevacid] 30 mg PO DAILY 05/06/17 [History] Metformin HCl 1,000 mg PO BID 07/09/17 [History] Ciprofloxacin [Cipro] 500 mg PO BID 7 Days #14 tablet 07/12/17 [Rx] HYDROcodone/Acet 5/325 mg [[place] 5-325 mg] 1 tab PO Q4H PRN 5 Days #30 tablet 07/12/17 [Rx] metroNIDAZOLE [Flagyl] 500 mg PO TID 7 Days #21 tablet 07/12/17 [Rx] Dicyclomine [Bentyl] 10 mg PO QID #20 capsule 07/31/17 [Rx] Azithromycin 250 mg PO DAILY #4 tablet 10/12/17 [Rx] Ondansetron ODT [Zofran ODT] 4 mg SL Q4HR #10 tab.rapdis 10/12/17 [Rx] Allergy/AdvReac Type Severity Reaction Status Date / Time NSAIDS (Non-Steroidal AdvReac Gastrointestinal Verified 10/12/17 13:33 Anti-Inflamma Upset All Systems PM: A 10-system review of systems was performed and is negative for pertinent findings except as documented above in the HPI. Review of systems: All the systems are reviewed everything is benign except the systems and symptoms I mentioned in the history of present illness - Constitutional General appearance: Present: cooperative, mild distress (Due to pain), A&O X 3, answers questions appropriately Exam: See below - Head Head exam: Present: atraumatic, normal inspection - Neck Neck exam general surgery: Present: supple - Respiratory Respiratory exam: Present: decreased breath sounds. Absent: rales, respiratory distress, rhonchi, wheezes - Cardiovascular Cardiovascular exam: Present: RRR, +S1, +S2. Absent: tachycardia - GI/Abdominal GI/Abdominal exam: Present: distended, normal bowel sounds, soft, tenderness (Left lower quadrant), no peritoneal signs. Absent: rebound, rigid - Extremities Exam Extremities exam: Absent: calf tenderness, pedal edema, tenderness - Back Exam Back exam: Absent: CVA tenderness (L), CVA tenderness (R) - Neurological Exam Neurological exam: Present: alert, oriented X3 - Psychiatric Psychiatric exam: Present: normal affect, normal mood - Skin Skin exam: Absent: rash Internal Med - H&P Results - Labs CBC & Chem 7: 12/17/17 14:19 Labs: Short CBC 12/17/17 Range/Units 14:19 WBC 8.6 (4.3-11.1) K/mcL Hgb 12.7 (11.5-15.4) g/dL Hct 39.0 (35.3-44.9) % Plt Count 342 (140-400) K/mcL Neutrophils # 6.6 (1.6-8.9) K/mcL - Assessment and plan (1) Intractable left lower quadrant abdominal pain Current Visit: Yes Status: Acute Assessment and plan: Place the patient into [facility] for observation her left lower quadrant abdominal pain is concerning for recurrent diverticulitis especially with the G.I. bleed concerning for diverticular bleed will obtain stat CBC, CMP also will get stat CT of the abdomen and pelvis with IV and all contrast depending on CT findings will start her on broad-spectrum antibiotic Cipro and Flagyl CT confirms diverticulitis with the diverticular bleed will consult surgery for further evaluation (2) Bright red blood per rectum Current Visit: Yes Status: Acute Assessment and plan: Ordered stat CBC NPO for now will consult G.I. for further evaluation close monitoring of hemoglobin If her hemoglobin below 7.0 will transfuse PRBC (3) GERD (gastroesophageal reflux disease) Current Visit: Yes Status: Acute Assessment and plan: Started on IV PPI Qualifiers: Esophagitis presence: without esophagitis Qualified Code(s): K21.9 - Gastro-esophageal reflux disease without esophagitis (4) DVT prophylaxis Current Visit: No Status: Acute Assessment and plan: SCD's (5) HTN (hypertension) Current Visit: No Status: Chronic Assessment and plan: Will resumed home medications Qualifiers: Hypertension type: essential hypertension Qualified Code(s): I10 - Essential (primary) hypertension (6) Morbid obesity with BMI of 40.0-44.9, adult Current Visit: No Status: Chronic (7) Type 2 diabetes mellitus Current Visit: No Status: Chronic Assessment and plan: On insulin sliding scale Q6H since patient is NPO Qualifiers: 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
[2017-12-17 15:01] LABS: Alanine Aminotransferase 22 Units/L (7-52); Albumin 4.3 g/dL (3.5-5.7); Albumin/Globulin Ratio 1.7 (1.1-2.2); Alkaline Phosphatase 102 Units/L (34-104); Aspartate Amino Transferase 18 Units/L (13-39); BUN/Creatinine Ratio 17 (6-26); Bilirubin,Total 0.4 mg/dL (0.3-1.0); Blood Urea Nitrogen 9 mg/dL (6-20); Calcium 9.2 mg/dL (8.6-10.3); Carbon Dioxide 29 mEq/L (23-29); Chloride 103 mEq/L (98-107); Globulin 2.5 g/dL (2.4-3.5); Glucose 94 mg/dL (70-105); Osmolality,Calculated 286 (280-300); Potassium 4.1 mEq/L (3.5-5.1); Sodium 139 mEq/L (136-145); Total Protein 6.8 g/dL (6.4-8.9); eGFR For Non-African Americans > 60 (> 60)
[2017-12-17 15:07] LABS: Estimated Average Glucose 151 mg/dl; Hemoglobin A1C 6.9 %
[2017-12-17] MEDS: *HR* HYDROcodone/Acet 5/325 mg TABLET PO PRN (16:02)
[2017-12-17] MEDS: 0.9 % Sodium Chloride 1,000 ML IVC SCH (16:03)
[2017-12-17] MEDS: Insulin LISPRO 300 UNITS/3 ML VIAL SQ SCH (17:55)
[2017-12-17] MEDS: Pantoprazole 40 MG VIAL IVP SCH (17:57)
[2017-12-17] MEDS ORDERED: Isovue-370 500 ML INFUS..BTL PO ONE (18:13)
[2017-12-17] MEDS: *HR* OxyCODONE Immed Rel 5 MG TABLET PO PRN (19:55)
[2017-12-17] MEDS: MetroNIDAZOLE 500 MG/100 ML 500 MG/100 ML BAG IVPB SCH (21:37)
[2017-12-18] MEDS: MetroNIDAZOLE 500 MG/100 ML 500 MG/100 ML BAG IVPB SCH ×2 (00:09→08:29)
[2017-12-18] MEDS: Insulin LISPRO 300 UNITS/3 ML VIAL SQ SCH ×2 (00:23→06:08)
[2017-12-18] MEDS: *HR* HYDROcodone/Acet 5/325 mg TABLET PO PRN (00:26)
[2017-12-18] MEDS: 0.9 % Sodium Chloride 1,000 ML IVC SCH (01:36)
[2017-12-18] MEDS: *HR* OxyCODONE Immed Rel 5 MG TABLET PO PRN ×2 (02:34→08:38)
[2017-12-18 05:26] LABS: Basophils % 0.5 %; Eosinophils # 0.2 K/mcL (0.0-0.6); Eosinophils % 3.7 %; Hematocrit 34.5 % (35.3-44.9); Hemoglobin 11.3 g/dL (11.5-15.4); Immature Granulocytes % 0.5 % (0-4); Lymphocytes # 1.5 K/mcL (0.6-4.6); Lymphocytes % 23.5 %; Mean Corpuscular HGB Conc 32.8 g/dL (31.6-35.5); Mean Corpuscular Volume 85.4 fL (83.0-100.0); Monocytes # 0.6 K/mcL (0.0-1.3); Monocytes % 9.1 %; Neutrophils # 4.1 K/mcL (1.6-8.9); Platelet Count 298 K/mcL (140-400); Red Blood Count 4.04 M/mcL (3.82-4.97); Red Cell Distribution Width 14.2 % (11.5-14.5); Segmented Neutrophils % 62.7 %
[2017-12-18 05:34] LABS: INR 1.1; Prothrombin Time 11.9 Seconds (9.4-12.1)
[2017-12-18 05:44] LABS: BUN/Creatinine Ratio 13 (6-26); Blood Urea Nitrogen 6 mg/dL (6-20); Calcium 8.5 mg/dL (8.6-10.3); Carbon Dioxide 27 mEq/L (23-29); Chloride 107 mEq/L (98-107); Glucose 87 mg/dL (70-105); Osmolality,Calculated 289 (280-300); Potassium 3.4 mEq/L (3.5-5.1); Sodium 141 mEq/L (136-145); eGFR For Non-African Americans > 60 (> 60)
[2017-12-18] MEDS: Pantoprazole 40 MG VIAL IVP SCH (06:10)
[2017-12-18 07:51] VITALS: BP 115/70
--- NOTE | 2017-12-18 09:44 | Discharge Summary ---
- NOTES TO OUTPATIENT PROVIDER Notes to Outpatient Provider: f/u with PCP in one week. f/u with GI Dr. Reyes in 1-2 weeks.. You may need Colonoscopy.. Dr. Reyes will take care of it. Date of Encounter: 12/18/17 Time of Encounter: 09:40 - Discharge Diagnosis (1) Intractable left lower quadrant abdominal pain Priority: Primary Status: Acute (2) Bright red blood per rectum Priority: Primary Status: Acute (3) GERD (gastroesophageal reflux disease) Priority: Secondary Status: Acute Qualifiers: Esophagitis presence: without esophagitis Qualified Code(s): K21.9 - Gastro-esophageal reflux disease without esophagitis (4) DVT prophylaxis Priority: Secondary Status: Acute (5) HTN (hypertension) Priority: Secondary Status: Chronic Qualifiers: Hypertension type: essential hypertension Qualified Code(s): I10 - Essential (primary) hypertension (6) Morbid obesity with BMI of 40.0-44.9, adult Priority: Secondary Status: Chronic (7) Type 2 diabetes mellitus Priority: Secondary Status: Chronic Qualifiers: 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 Lawson is a 47 year old female with a past medical history of squamous cell carcinoma of the cervix, pulmonary emboli not on anticoagulation any longer, gastric ulcers, diabetes type 2 insulin-dependent, CAD, who was admitted in this hospital in July 2017 with acute diverticulitis, now she was sent from Dr. Reyes's office as the patient has been complaining of lower abdominal cramps and rectal bleeding on and off for the past 2 months. Patient stated her pain was never completely improved since her last hospitalization. Since last 4 to 6 weeks her left lower abdominal pain progressively worsening also have intermittent on and off bright red blood per rectum. Pt was admitted in the hospital and had CT of Abd which did not show any diverticulitis. She was started on empirical abx Cipro and Flagyl. Her pain is little better today. She did not have any more bright red blood per rectum / bleeding episodes while she is in the hospital. Her Hb stab;e @ 11.7. I did review her previous CT of Abd reports, she does have diverticulosis but never had diverticulitis. It does look like patient might have some drug seeking behavior to. She may get benefit with a colonoscopy . I did talk to GI Dr. Reyes who suggested to place the pt on 2 weeks PO abx Cipro and flagyl, since her abdominal pain / symptoms get better with abx and will f/u on her as an out pt. So will d/c her home in stable condition today. - Time Spent with Patient Total time spent providing and/or coordinating discharge services: - Discharge Medications Prescriptions: HYDROcodone/Acet 5/325 mg [[place] 5-325 mg] 1 tab PO Q8HR PRN 4 Days #10 tablet PRN Reason: Moderate Pain Ciprofloxacin HCl [Cipro] 500 mg PO BID #26 tablet metroNIDAZOLE [Flagyl] 500 mg PO TID #39 tablet Home Medications: Gabapentin [Neurontin] 600 mg PO TID 01/04/15 [History] Cholecalciferol (D-3) [Vitamin D] 1,000 unit PO DAILY 04/19/16 [History] Insulin Glargine,Hum.rec.anlog [[place] Solostar] 50 unit SQ DAILY PRN 05/06/17 [History] Lansoprazole [Prevacid] 30 mg PO DAILY 05/06/17 [History] Dicyclomine [Bentyl] 10 mg PO QID #20 capsule 07/31/17 [Rx] Ondansetron ODT [Zofran ODT] 4 mg SL Q4HR #10 tab.rapdis 10/12/17 [Rx] Atorvastatin [Lipitor] 40 mg PO DAILY 12/17/17 [History] Cyclobenzaprine HCl 10 mg PO TID PRN 12/17/17 [History] Insulin LISPRO [Admelog] 0 units SQ TID 12/17/17 [History] Ciprofloxacin HCl [Cipro] 500 mg PO BID #26 tablet 12/18/17 [Rx] HYDROcodone/Acet 5/325 mg [[place] 5-325 mg] 1 tab PO Q8HR PRN 4 Days #10 tablet 12/18/17 [Rx] metroNIDAZOLE [Flagyl] 500 mg PO TID #39 tablet 12/18/17 [Rx] Allergies/Adverse Reactions: Allergy/AdvReac Type Severity Reaction Status Date / Time NSAIDS (Non-Steroidal AdvReac Gastrointestinal Verified 12/17/17 15:25 Anti-Inflamma Upset Date of admission: 12/17/17 13:17 Primary care physician: Everett Moulton MD Consults: 12/18/17 09:00 Consult to Gastroenterology [CONS] Routine Consulting Provider: [facility] Reason for Consult: Bright red bloor per rectum Time Notified: 09:01 Call Completed: Yes - Constitutional Vitals: Temp Pulse Resp BP Pulse Ox 97.7 F 68 24 115/70 97 12/18/17 07:30 12/18/17 07:30 12/18/17 07:30 12/18/17 07:30 12/18/17 07:30 General appearance: Present: cooperative, A&O X 3, answers questions appropriately Exam: Gen: Alert, awake, Oriented to time,place and person Chest: Diminished breath sounds B/L, No wheezing, No crackles, No rales Heart: S1S2+ RRR No murmurs Abd: Soft, mildly discomfort in the left lower quadrant region, BS +, No organomegaly Ext: No edema, pulses are palpable, No calf tenderness Neuro : Benign findings Skin: No rash. - Patient Status Disposition: Home, Self-Care Condition: Good Overall status at discharge: patient is back to baseline - Discharge Instructions Follow Up With: Everett Moulton MD [Primary Care Provider] - - Diet and Activity Activity: increase activity as tolerated Diet: low salt diet
== END 2017-12-18 10:48 | disposition home or self-care (01) ==
LOC: 3BNU
PROVIDERS: ADMIT Family Medicine; ATTEND Family Medicine